=== PATIENT | female | born 1945 | race Caucasian/White ===

== ENCOUNTER → 2016-04-25 | Outpatient (REF) | payer OTHER ==
[~2016-04-25] MED LIST: /ADVA50050 INH; ACET65TA OR; ALBUTEROL INHL INH; ALEVE PO; ASPI81TA83 OR; ATEN50TA2 OR; CALCIUM VITAMIN D PO; COZA50TA18 OR; LIPI80TA OR; NITR0.4S SL; NITROSTAT; PRIL40CA OR; VIT D 2000 PO; [UNRECOGNIZED DRUG - OTHER] OU
[2016-04-25 12:04] LABS: ALBUMIN 3.4 GM/DL (3.2-5.2); ALBUMIN/GLOBULIN RATIO 1.26 (1.00-1.93); ALKALINE PHOSPHATASE 103 U/L (45-117); ALT/SGPT 24 U/L (12-78); ANION GAP 11 MEQ/L (8-16); AST/SGOT 10 U/L (15-37); BILIRUBIN,TOTAL 0.7 MG/DL (0.2-1.0); BLOOD UREA NITROGEN 9 MG/DL (7-18); CALCIUM LEVEL 8.6 MG/DL (8.8-10.2); CARBON DIOXIDE LEVEL 24 MEQ/L (21-32); CHLORIDE LEVEL 108 MEQ/L (98-107); CREATININE FOR GFR 0.88 MG/DL (0.55-1.02); FERRITIN 34 NG/ML (8-252); GLOMERULAR FILTRATION RATE > 60.0 (>39); GLUCOSE, FASTING 158 MG/DL (83-110); MAGNESIUM LEVEL 2.2 MG/DL (1.8-2.4); PERCENT SATURATION 15.6 % (13.2-37.4); POTASSIUM SERUM 4.1 MEQ/L (3.5-5.1); SODIUM LEVEL 143 MEQ/L (136-145); TOTAL IRON BINDING CAPACITY 339 UG/DL (250-450); TOTAL PROTEIN 6.1 GM/DL (6.4-8.2)
[2016-04-25 12:08] LABS: BASO # 0.1 K/mm3 (0.0-0.2); BASO % 1.2 % (0.0-1.0); EOS # 0.1 K/mm3 (0.0-0.50); EOS % 1.4 % (0.0-3.0); LARGE UNSTAINED CELL # 0.1 K/mm3 (0.0-0.4); LARGE UNSTAINED CELL % 1.7 % (0.0-4.0); LYMPH # 1.4 K/mm3 (1.5-4.5); LYMPH % 17.3 % (24.0-44.0); MEAN CORPUSCULAR HEMOGLOBIN 29.4 pg (27.0-33.0); MEAN CORPUSCULAR VOLUME 86.4 fl (80.0-96.0); MONO # 0.5 K/mm3 (0.0-0.8); MONO % 6.5 % (0.0-5.0); NEUTROPHILS # 5.3 K/mm3 (1.8-7.7); PLATELET COUNT, AUTOMATED 379 k/mm3 (150-450); RED CELL DISTRIBUTION WIDTH 14.2 % (11.5-14.5); WHITE BLOOD COUNT 7.3 K/mm3 (4.0-10.0)
== END ==
LOC: M SFHCPLAZ 08:54
PROVIDERS: ATTEND Family Medicine
DX: I10 Essential (primary) hypertension (principal); E11.9 Type 2 diabetes mellitus without complications

== ENCOUNTER → 2016-05-28 | Day surgery (SDC) | payer OTHER ==
[~2016-05-28] VITALS: Ht 152.4 cm; Wt 62.6 kg
[~2016-05-28] MED LIST changes: +ACETAMINOPHEN 325 MG TAB PO PRN; +ACETYLCHOLINE OPHTH SOLN 1% 2ML As Ordered ONE; +ACETYLCHOLINE OPHTH SOLN 1% 2ML XX ONE; +ASPI1TAB PO; +ATEN25TA PO; +ATOR1TAB18 PO; +AcetaZOLAMIDE 500 MG ER CAP PO ONE; +BALANCED SALT IRRIGATION SOL 500ML GLASS BOTTLE (FOR OR EYE COMPOUND) IR ONE; +BALANCED SALT IRRIGATION SOLUTION 500ML BAG (FOR OR EYE MACHINE) As Ordered ONE; +CALC600T21 PO; +CEFUROXIME 1MG/0.1ML INTRACAMERAL INJ As Ordered ONE; +CEFUROXIME 1MG/0.1ML INTRACAMERAL INJ ICAM ONE; +CYCLOPENTOLATE 2% OPHTH SOLN As Ordered ONE; +CYCLOPENTOLATE 2% OPHTH SOLN OS ONE; +DORZ2OPD OU; +HEALON DUET (HEALON 10MG/ML 0.55ML & HEALON ENDOCOAT 30MG/ML 0.85ML) As Ordered ONE; +HEALON DUET (HEALON 10MG/ML 0.55ML & HEALON ENDOCOAT 30MG/ML 0.85ML) XX ONE; +ICAPCAP PO; +KETOROLAC 0.5% OPHTH SOLN OS ONE; +LIDOCAINE 1% SDV 5 ML VIAL As Ordered ONE; +LIDOCAINE 1% SDV 5 ML VIAL XX ONE; +LIDOCAINE 4% INJ 5 ML AMP OU ONE; +LOSA50TA20 PO; +METF500T PO; +MIDAZOLAM INJ 2 MG/2 ML VIAL (J2250) As Ordered ONE; +OFLOXACIN 0.3 % (OCUFLOX) OPTH SOL 5ML As Ordered ONE; +OFLOXACIN 0.3 % (OCUFLOX) OPTH SOL 5ML OS ONE; +OMEP40CA2 PO; +PHENYLEPHRINE 2.5% OPHTH SOL 2ML As Ordered ONE; +PHENYLEPHRINE 2.5% OPHTH SOL 2ML OS ONE; +POVIDONE-IODINE 5% OPHTH PREP SOL 30ML As Ordered ONE; +PROPARACAINE 0.5% OPHTH SOL 15ML OS PRN; +SIMB1SUS OU; +TRAV04OPD OU; +TRIMETHOBENZAMIDE 300 MG CAP PO PRN; +TROPICAMIDE 1% OPHTH SOLN 2 ML As Ordered ONE; +TROPICAMIDE 1% OPHTH SOLN 2 ML OS ONE; +VITA-112 PO; +fentaNYL 100 MCG/2 ML INJECTION (J3010) As Ordered ONE
[2016-05-28 09:00] VITALS: BP 162/87
--- NOTE | 2016-05-28 20:26 | RO ---
DATE OF PROCEDURE: 05/28/2015 PREPROCEDURE DIAGNOSIS: Age-related nuclear cataract and open-angled glaucoma left eye. POSTPROCEDURE DIAGNOSIS: Age-related nuclear cataract and open-angled glaucoma left eye. PROCEDURE: Phacoemulsification and posterior chamber intraocular lens implantation and endocyclophotocoagulation (ECP). The lens used was PCB00 19.5 diopter. SURGEON: Lori Santiago MD INGOT WEIGHER: ANESTHESIA: Topical with sedation. DESCRIPTION OF PROCEDURE: The patient was prepped and draped in the usual fashion. A lid speculum was placed between the lids. The eye was fixated. A stab incision was made to the anterior chamber, and 1% non-preserved lidocaine was instilled. Then, viscoelastic was instilled. The eye was re-fixated. A 2.6 mm keratome was used to make a clear corneal temporal limbal incision. Capsulorrhexis was begun with a 30-gauge bent needle and then carried out in a circular fashion with capsulorrhexis forceps. The lens was hydrodissected, and the phacoemulsification unit was used to make a groove in the nucleus in two meridians. The nucleus was then cracked into four quadrants. Each quadrant was removed with the phacoemulsification unit. Any remaining cortex was removed with the irrigation and aspiration (I and A) unit. A posterior chamber intraocular lens was placed in the capsular bag without difficulty. The posterior chamber was again refilled with viscoelastic and the iris was ballooned up. The ECP probe was introduced under approximately 180 degrees of celiac processes were lasered. Any remaining viscoelastic was removed with the I and A. The wound was hydrated, and Miochol and cefuroxime were instilled. The patient tolerated the procedure well and went to the recovery room in stable condition.
== END | disposition home or self-care (01) ==
LOC: M SDC 06:16
PROVIDERS: ATTEND Ophthalmology
DX: H25.12 Age-related nuclear cataract, left eye (principal); H40.10X0 Unspecified open-angle glaucoma, stage unspecified; I25.10 Atherosclerotic heart disease of native coronary artery without angina pectoris; I25.2 Old myocardial infarction; I10 Essential (primary) hypertension; E78.5 Hyperlipidemia, unspecified; Z98.61 Coronary angioplasty status; Z79.82 Long term (current) use of aspirin; Z79.899 Other long term (current) drug therapy; K21.9 Gastro-esophageal reflux disease without esophagitis; Z87.891 Personal history of nicotine dependence
CPT/HCPCS: 66711; 66984; J2250; J3010; V2632

== ENCOUNTER → 2016-06-25 | Day surgery (SDC) | payer OTHER ==
[~2016-06-25] VITALS: Ht 152.4 cm; Wt 61.2 kg
[~2016-06-25] MED LIST changes: -ACETYLCHOLINE OPHTH SOLN 1% 2ML XX ONE; -BALANCED SALT IRRIGATION SOL 500ML GLASS BOTTLE (FOR OR EYE COMPOUND) IR ONE; -CEFUROXIME 1MG/0.1ML INTRACAMERAL INJ ICAM ONE; -CYCLOPENTOLATE 2% OPHTH SOLN As Ordered ONE; +CYCLOPENTOLATE 2% OPHTH SOLN OD ONE; -CYCLOPENTOLATE 2% OPHTH SOLN OS ONE; +D5W/0.2% SODIUM CHLORIDE 250 ML IV SCH; -HEALON DUET (HEALON 10MG/ML 0.55ML & HEALON ENDOCOAT 30MG/ML 0.85ML) XX ONE; +KETOROLAC 0.5% OPHTH SOLN OD ONE; -KETOROLAC 0.5% OPHTH SOLN OS ONE; -LIDOCAINE 1% SDV 5 ML VIAL XX ONE; -OFLOXACIN 0.3 % (OCUFLOX) OPTH SOL 5ML As Ordered ONE; +OFLOXACIN 0.3 % (OCUFLOX) OPTH SOL 5ML OD ONE; -OFLOXACIN 0.3 % (OCUFLOX) OPTH SOL 5ML OS ONE; -PHENYLEPHRINE 2.5% OPHTH SOL 2ML As Ordered ONE; +PHENYLEPHRINE 2.5% OPHTH SOL 2ML OD ONE; -PHENYLEPHRINE 2.5% OPHTH SOL 2ML OS ONE; +PROPARACAINE 0.5% OPHTH SOL 15ML OD PRN; -PROPARACAINE 0.5% OPHTH SOL 15ML OS PRN; -TROPICAMIDE 1% OPHTH SOLN 2 ML As Ordered ONE; +TROPICAMIDE 1% OPHTH SOLN 2 ML OD ONE; -TROPICAMIDE 1% OPHTH SOLN 2 ML OS ONE
[2016-06-25 10:00] VITALS: BP 173/73
--- NOTE | 2016-06-26 06:26 | RO ---
DATE OF PROCEDURE: 06/25/2016 PREOPERATIVE DIAGNOSES: Age-related nuclear cataract right eye and glaucoma open-angle right eye. POSTOPERATIVE DIAGNOSES: Age-related nuclear cataract right eye and glaucoma open-angle right eye. PROCEDURE: Phacoemulsification and posterior chamber intraocular lens implantation and endoscopic endophotocoagulation (ECP) right eye. Lens used is a AU00T0, 18.5 diopter. SURGEON: Lori Santiago MD MECHANICAL DETAILER: ANESTHESIA: Topical with sedation. DESCRIPTION OF PROCEDURE: Patient was prepped and draped in the usual fashion. A lid speculum was placed between the lids. The eye was fixated. A stab incision was made to the anterior chamber, and 1% non-preserved lidocaine was instilled. Then, viscoelastic was instilled. The eye was re-fixated. A 2.4 mm keratome was used to make a clear corneal temporal limbal incision. Capsulorrhexis was begun with a 30-gauge bent needle and then carried out in a circular fashion with capsulorrhexis forceps. The lens was then hydrodissected and the phacoemulsification unit was used to make a groove in the nucleus in two meridians. The nucleus was then cracked into four quadrants. Each quadrant was removed with the phacoemulsification unit. Any remaining cortex was removed with the irrigation and aspiration (I and A) unit. The capsular bag was refilled with viscoelastic. A posterior chamber intraocular lens was placed in the capsular bag without difficulty. The anterior chamber was then refilled with viscoelastic ballooning up the iris and the ECP probe was introduced into the eye. The ciliary processes were lasered for approximately 200 degrees. Any remaining viscoelastic was removed with the I and A unit, and the wound was hydrated. Miochol and cefuroxime were instilled. Patient tolerated the procedure well and went to the recovery room in stable condition.
== END | disposition home or self-care (01) ==
LOC: M SDC 08:08
PROVIDERS: ATTEND Ophthalmology
DX: H25.11 Age-related nuclear cataract, right eye (principal); H40.10X0 Unspecified open-angle glaucoma, stage unspecified; I10 Essential (primary) hypertension; I25.10 Atherosclerotic heart disease of native coronary artery without angina pectoris; I25.2 Old myocardial infarction; E11.9 Type 2 diabetes mellitus without complications; Z98.61 Coronary angioplasty status; E78.5 Hyperlipidemia, unspecified; K21.9 Gastro-esophageal reflux disease without esophagitis; Z79.899 Other long term (current) drug therapy; Z79.82 Long term (current) use of aspirin
CPT/HCPCS: 66711; 66984; J2250; J3010; V2632

== ENCOUNTER → 2016-06-30 | Outpatient (REF) | payer OTHER ==
[~2016-06-30] MED LIST changes: -ACETAMINOPHEN 325 MG TAB PO PRN; -ACETYLCHOLINE OPHTH SOLN 1% 2ML As Ordered ONE; -AcetaZOLAMIDE 500 MG ER CAP PO ONE; -BALANCED SALT IRRIGATION SOLUTION 500ML BAG (FOR OR EYE MACHINE) As Ordered ONE; -CEFUROXIME 1MG/0.1ML INTRACAMERAL INJ As Ordered ONE; -CYCLOPENTOLATE 2% OPHTH SOLN OD ONE; -D5W/0.2% SODIUM CHLORIDE 250 ML IV SCH; -HEALON DUET (HEALON 10MG/ML 0.55ML & HEALON ENDOCOAT 30MG/ML 0.85ML) As Ordered ONE; -KETOROLAC 0.5% OPHTH SOLN OD ONE; -LIDOCAINE 1% SDV 5 ML VIAL As Ordered ONE; -LIDOCAINE 4% INJ 5 ML AMP OU ONE; -MIDAZOLAM INJ 2 MG/2 ML VIAL (J2250) As Ordered ONE; -OFLOXACIN 0.3 % (OCUFLOX) OPTH SOL 5ML OD ONE; -PHENYLEPHRINE 2.5% OPHTH SOL 2ML OD ONE; -POVIDONE-IODINE 5% OPHTH PREP SOL 30ML As Ordered ONE; -PROPARACAINE 0.5% OPHTH SOL 15ML OD PRN; -TRIMETHOBENZAMIDE 300 MG CAP PO PRN; -TROPICAMIDE 1% OPHTH SOLN 2 ML OD ONE; -fentaNYL 100 MCG/2 ML INJECTION (J3010) As Ordered ONE
[2016-06-30 12:04] LABS: BASO % 0.6 % (0.0-1.0); EOS # 0.1 K/mm3 (0.0-0.50); EOS % 1.2 % (0.0-3.0); LARGE UNSTAINED CELL # 0.1 K/mm3 (0.0-0.4); LARGE UNSTAINED CELL % 1.4 % (0.0-4.0); LYMPH # 1.2 K/mm3 (1.5-4.5); LYMPH % 18.3 % (24.0-44.0); MEAN CORPUSCULAR HEMOGLOBIN 29.5 pg (27.0-33.0); MEAN CORPUSCULAR HGB CONC 33.3 g/dl (32.0-36.5); MEAN CORPUSCULAR VOLUME 88.5 fl (80.0-96.0); MONO # 0.3 K/mm3 (0.0-0.8); MONO % 5.5 % (0.0-5.0); NEUTROPHILS # 4.5 K/mm3 (1.8-7.7); PLATELET COUNT, AUTOMATED 325 k/mm3 (150-450); WHITE BLOOD COUNT 6.2 K/mm3 (4.0-10.0)
[2016-06-30 12:25] LABS: ALBUMIN 3.8 GM/DL (3.2-5.2); ALBUMIN/GLOBULIN RATIO 1.27 (1.00-1.93); ALKALINE PHOSPHATASE 95 U/L (45-117); ALT/SGPT 40 U/L (12-78); ANION GAP 8 MEQ/L (8-16); AST/SGOT 18 U/L (15-37); BILIRUBIN,TOTAL 0.6 MG/DL (0.2-1.0); BLOOD UREA NITROGEN 9 MG/DL (7-18); CALCIUM LEVEL 8.8 MG/DL (8.8-10.2); CARBON DIOXIDE LEVEL 25 MEQ/L (21-32); CHLORIDE LEVEL 110 MEQ/L (98-107); CREATININE FOR GFR 0.77 MG/DL (0.55-1.02); FERRITIN 28 NG/ML (8-252); GLOMERULAR FILTRATION RATE > 60.0 (>39); GLUCOSE, FASTING 138 MG/DL (83-110); PERCENT SATURATION 27.5 % (13.2-37.4); POTASSIUM SERUM 4.7 MEQ/L (3.5-5.1); SODIUM LEVEL 143 MEQ/L (136-145); TOTAL IRON BINDING CAPACITY 393 UG/DL (250-450); TOTAL PROTEIN 6.8 GM/DL (6.4-8.2)
== END ==
LOC: M SFHCPLAZ 09:04
PROVIDERS: ATTEND Family Medicine
DX: I10 Essential (primary) hypertension (principal); E11.9 Type 2 diabetes mellitus without complications

== ENCOUNTER → 2016-08-29 | Outpatient (CLI) | payer OTHER ==
--- NOTE | 2016-08-29 10:42 | REPMRS ---
Patient History The patient states she has not had a clinical breast exam in over a year. Family history of breast cancer in paternal grandmother at age 50 or over and breast cancer in daughter at age 49. Digital Woman Screen Mammo: August 29, 2016 - Exam #: [id number] Bilateral CC and MLO view(s) were taken. Technologist: Kayla Huggins, Technologist Prior study comparison: August 29, 2015, digital woman screen mammo performed at [facility]. September 06, 2014, digital woman screen mammo performed at [facility] to [facility]. August 11, 2013, digital woman screen mammo performed at [facility] to [facility]. FINDINGS: There are scattered fibroglandular densities. There has been no change in the appearance of the mammogram from the prior studies. There is a mild amount of scattered fibroglandular density which is fairly symmetric. There is no interval development of dominant mass, architectural distortion, or clustered microcalcification suggestive of malignancy. ASSESSMENT: BI-RADS/ACR category 1 mammogram. Negative. Recommendation Routine screening mammogram in 1 year (for women over age 40). This mammogram was interpreted with the aid of an FDA-approved computer-aided dectection system. Electronically Signed By: Juventino Rush MD 08/29/16 0758
== END ==
LOC: M WHC 09:51
PROVIDERS: ATTEND Family Medicine
DX: Z12.31 Encounter for screening mammogram for malignant neoplasm of breast (principal)

== ENCOUNTER → 2017-01-27 | Outpatient (REF) | payer OTHER ==
[~2017-01-27] MED LIST changes: -ATOR1TAB18 PO; +ATOR80TA59 PO; -CALC600T21 PO; +CALC600T60 PO; -METF500T PO; +METF500T13 PO
[2017-01-27 13:11] LABS: CHOLESTEROL LEVEL 141 MG/DL (<200); FREE T4 1.31 NG/DL (0.76-1.46); TRIGLYCERIDES LEVEL 120 MG/DL (<150)
== END ==
LOC: M SFHCPLAZ 08:50
PROVIDERS: ATTEND Family Medicine
DX: E78.5 Hyperlipidemia, unspecified (principal); E11.9 Type 2 diabetes mellitus without complications

== ENCOUNTER → 2017-06-08 | Outpatient (REF) | payer OTHER ==
[2017-06-08 11:59] LABS: BASO # 0.1 10^3/uL (0.0-0.2); BASO % 0.8 % (0.0-1.0); EOS # 0.1 10^3/uL (0.0-0.50); EOS % 0.6 % (0.0-3.0); HEMATOCRIT 36.6 % (36.0-47.0); HEMOGLOBIN 12.3 g/dl (12.0-16.0); IMMATURE GRANULOCYTE % 0.5 % (0-3.0); LYMPH # 1.4 10^3/uL (1.5-4.5); LYMPH % 18.1 % (24.0-44.0); MEAN CORPUSCULAR HEMOGLOBIN 28.5 pg (27.0-33.0); MEAN CORPUSCULAR HGB CONC 33.6 g/dl (32.0-36.5); MEAN CORPUSCULAR VOLUME 84.7 fl (80.0-96.0); MONO # 0.8 10^3/uL (0.0-0.8); NEUTROPHILS # 5.4 10^3/uL (1.8-7.7); PLATELET COUNT, AUTOMATED 372 10^3/uL (150-450); RED BLOOD COUNT 4.32 10^6/uL (4.00-5.40); RED CELL DISTRIBUTION WIDTH 13.3 % (11.5-14.5); WHITE BLOOD COUNT 7.8 10^3/uL (4.0-10.0)
[2017-06-08 12:10] LABS: ESTIMATED AVERAGE GLUCOSE 143 MG/DL (60-110); HEMOGLOBIN A1c 6.6 %
[2017-06-08 12:14] LABS: PTH INTACT 42.1 PG/ML (18.5-88.0); TOTAL 25(OH) VITAMIN D 38.7 NG/ML (30.0-100.0)
[2017-06-08 12:23] LABS: ALBUMIN 3.4 GM/DL (3.2-5.2); ALBUMIN/GLOBULIN RATIO 1.17 (1.00-1.93); ALKALINE PHOSPHATASE 94 U/L (45-117); ALT/SGPT 23 U/L (12-78); ANION GAP 12 MEQ/L (8-16); AST/SGOT 19 U/L (7-37); BILIRUBIN,TOTAL 0.8 MG/DL (0.2-1.0); BLOOD UREA NITROGEN 11 MG/DL (7-18); CALCIUM LEVEL 8.6 MG/DL (8.8-10.2); CARBON DIOXIDE LEVEL 22 MEQ/L (21-32); CHLORIDE LEVEL 98 MEQ/L (98-107); CREATININE FOR GFR 0.79 MG/DL (0.55-1.30); GLOMERULAR FILTRATION RATE > 60.0 (>39); GLUCOSE, FASTING 115 MG/DL (70-100); MAGNESIUM LEVEL 1.9 MG/DL (1.8-2.4); POTASSIUM SERUM 4.6 MEQ/L (3.5-5.1); SODIUM LEVEL 132 MEQ/L (136-145); TOTAL PROTEIN 6.3 GM/DL (6.4-8.2)
== END ==
LOC: M SFHCPLAZ 09:24
DX: I10 Essential (primary) hypertension (principal); E11.9 Type 2 diabetes mellitus without complications; E55.9 Vitamin D deficiency, unspecified
CPT/HCPCS: 83735

== ENCOUNTER → 2017-06-12 | Outpatient (REF) | payer OTHER ==
[2017-06-12 13:30] LABS: INR 0.92; PARTIAL THROMBOPLASTIN TIME 24.1 SECONDS (26.8-37.9); PROTHROMBIN TIME 12.4 SECONDS (12.4-14.5)
[2017-06-12 13:33] LABS: D-DIMER QUANT 542.9 ng/ml (<500)
[2017-06-12 13:59] LABS: ALBUMIN 3.9 GM/DL (3.2-5.2); ANION GAP 10 MEQ/L (8-16); BLOOD UREA NITROGEN 6 MG/DL (7-18); C REACTIVE PROTEIN QUANTITATIV < 0.30 MG/DL (0.00-0.30); CALCIUM LEVEL 8.6 MG/DL (8.8-10.2); CARBON DIOXIDE LEVEL 24 MEQ/L (21-32); CHLORIDE LEVEL 102 MEQ/L (98-107); CREATININE FOR GFR 0.73 MG/DL (0.55-1.30); GLOMERULAR FILTRATION RATE > 60.0 (>39); GLUCOSE, FASTING 152 MG/DL (70-100); MAGNESIUM LEVEL 1.9 MG/DL (1.8-2.4); PHOSPHORUS LEVEL 3.3 MG/DL (2.5-4.9); POTASSIUM SERUM 4.5 MEQ/L (3.5-5.1); SODIUM LEVEL 136 MEQ/L (136-145); TROPONIN I < 0.02 NG/ML (< 0.10)
[2017-06-12 14:04] LABS: FREE T4 1.43 NG/DL (0.76-1.46); NT-PRO BNP 3066 PG/ML (<125)
== END ==
LOC: M SFHCPLAZ 11:39
DX: I25.10 Atherosclerotic heart disease of native coronary artery without angina pectoris (principal); I48.91 Unspecified atrial fibrillation
CPT/HCPCS: 83735

== ENCOUNTER → 2017-06-16 | Outpatient (REF) | payer OTHER ==
[2017-06-16 13:54] LABS: ALBUMIN 3.7 GM/DL (3.2-5.2); ANION GAP 10 MEQ/L (8-16); BLOOD UREA NITROGEN 8 MG/DL (7-18); CALCIUM LEVEL 8.2 MG/DL (8.8-10.2); CARBON DIOXIDE LEVEL 25 MEQ/L (21-32); CHLORIDE LEVEL 100 MEQ/L (98-107); CREATININE FOR GFR 0.84 MG/DL (0.55-1.30); GLOMERULAR FILTRATION RATE > 60.0 (>39); GLUCOSE, FASTING 170 MG/DL (70-100); MAGNESIUM LEVEL 1.9 MG/DL (1.8-2.4); NT-PRO BNP 576 PG/ML (<125); PHOSPHORUS LEVEL 3.8 MG/DL (2.5-4.9); POTASSIUM SERUM 4.3 MEQ/L (3.5-5.1); SODIUM LEVEL 135 MEQ/L (136-145)
== END ==
LOC: M SFHCPLAZ 11:26
DX: I48.91 Unspecified atrial fibrillation (principal); I50.32 Chronic diastolic (congestive) heart failure; R53.83 Other fatigue
CPT/HCPCS: 83735

== ENCOUNTER → 2017-06-16 | Outpatient (CLI) | payer OTHER | LOC: M SLEEP HO 12:21 | DX: G47.33 Obstructive sleep apnea (adult) (pediatric) (principal); I50.32 Chronic diastolic (congestive) heart failure | CPT/HCPCS: G0399 ==

== ENCOUNTER → 2017-10-16 | Outpatient (REF) | payer OTHER ==
[2017-10-16 11:41] LABS: BASO # 0.1 10^3/uL (0.0-0.2); BASO % 0.7 % (0.0-1.0); EOS # 0.1 10^3/uL (0.0-0.50); EOS % 0.9 % (0.0-3.0); HEMATOCRIT 37.5 % (36.0-47.0); HEMOGLOBIN 12.2 g/dl (12.0-15.5); IMMATURE GRANULOCYTE % 0.2 % (0-3.0); LYMPH # 1.1 10^3/uL (1.5-4.5); LYMPH % 13.6 % (24.0-44.0); MEAN CORPUSCULAR HGB CONC 32.5 g/dl (32.0-36.5); MONO # 0.7 10^3/uL (0.0-0.8); MONO % 8.1 % (0.0-5.0); NEUTROPHILS # 6.2 10^3/uL (1.8-7.7); NEUTROPHILS % 76.5 % (36.0-66.0); PLATELET COUNT, AUTOMATED 423 10^3/uL (150-450); RED BLOOD COUNT 4.52 10^6/uL (4.00-5.40); RED CELL DISTRIBUTION WIDTH 14.4 % (11.5-14.5); RETIC HEMOGLOBIN EQUIVALENT 32.6 pg (24-36); RETICULOCYTE # 100.8 10^9/L (17-77); RETICULOCYTE % 2.2 % (0.5-1.5); WHITE BLOOD COUNT 8.1 10^3/uL (4.0-10.0)
[2017-10-16 12:13] LABS: ALBUMIN 3.6 GM/DL (3.2-5.2); ALBUMIN/GLOBULIN RATIO 1.13 (1.00-1.93); ALKALINE PHOSPHATASE 97 U/L (45-117); ALT/SGPT 31 U/L (12-78); ANION GAP 8 MEQ/L (8-16); AST/SGOT 18 U/L (7-37); BILIRUBIN,TOTAL 0.5 MG/DL (0.2-1.0); BLOOD UREA NITROGEN 9 MG/DL (7-18); C REACTIVE PROTEIN QUANTITATIV < 0.30 MG/DL (0.00-0.30); CALCIUM LEVEL 8.6 MG/DL (8.8-10.2); CARBON DIOXIDE LEVEL 27 MEQ/L (21-32); CHLORIDE LEVEL 102 MEQ/L (98-107); CHOLESTEROL LEVEL 159 MG/DL (<200); CHOLESTEROL RISK RATIO 2.064 (<5); CPK CREATINE PHOSPHOKINASE 37 U/L (26-192); CREATININE FOR GFR 0.79 MG/DL (0.55-1.30); GLOMERULAR FILTRATION RATE > 60.0 (>39); GLUCOSE, FASTING 140 MG/DL (70-100); HDL CHOLESTEROL 77 MG/DL (>40); LDL CHOLESTEROL 62.2 MG/DL (<100); NON-HDL-C 82 MG/DL; POTASSIUM SERUM 4.5 MEQ/L (3.5-5.1); SODIUM LEVEL 137 MEQ/L (136-145); TOTAL PROTEIN 6.8 GM/DL (6.4-8.2); TRIGLYCERIDES LEVEL 99 MG/DL (<150)
== END ==
LOC: M SFHCPLAZ 08:44
DX: I48.91 Unspecified atrial fibrillation (principal)
CPT/HCPCS: 82550

== ENCOUNTER → 2017-11-26 | Outpatient (CLI) | payer OTHER | LOC: M SLEEP 19:21 | DX: G47.33 Obstructive sleep apnea (adult) (pediatric) (principal) | CPT/HCPCS: 95811 ==

== ENCOUNTER → 2017-12-29 | Outpatient (CLI) | payer OTHER | LOC: M WHC 09:28 | DX: Z12.31 Encounter for screening mammogram for malignant neoplasm of breast (principal); Z80.3 Family history of malignant neoplasm of breast; M81.0 Age-related osteoporosis without current pathological fracture | CPT/HCPCS: 77067 ==

== ENCOUNTER → 2018-02-24 | Outpatient (REF) | payer OTHER ==
[2018-02-24 12:53] LABS: BASO # 0.1 10^3/uL (0.0-0.2); BASO % 0.9 % (0.0-1.0); EOS # 0.1 10^3/uL (0.0-0.50); EOS % 0.6 % (0.0-3.0); HEMOGLOBIN 11.2 g/dl (12.0-15.5); IMMATURE GRANULOCYTE % 0.4 % (0-3.0); LYMPH # 1.1 10^3/uL (1.5-4.5); LYMPH % 13.3 % (24.0-44.0); MEAN CORPUSCULAR HEMOGLOBIN 25.5 pg (27.0-33.0); MEAN CORPUSCULAR HGB CONC 31.1 g/dl (32.0-36.5); MEAN CORPUSCULAR VOLUME 81.8 fl (80.0-96.0); MONO # 0.6 10^3/uL (0.0-0.8); NEUTROPHILS # 6.2 10^3/uL (1.8-7.7); NEUTROPHILS % 77.8 % (36.0-66.0); PLATELET COUNT, AUTOMATED 438 10^3/uL (150-450); RED CELL DISTRIBUTION WIDTH 14.7 % (11.5-14.5); RETIC HEMOGLOBIN EQUIVALENT 28.4 pg (24-36); RETICULOCYTE # 93.3 10^9/L (17-77); RETICULOCYTE % 2.1 % (0.5-1.5)
[2018-02-24 13:07] LABS: ALBUMIN 3.7 GM/DL (3.2-5.2); ALBUMIN/GLOBULIN RATIO 1.32 (1.00-1.93); ALKALINE PHOSPHATASE 95 U/L (45-117); ALT/SGPT 33 U/L (12-78); ANION GAP 8 MEQ/L (8-16); AST/SGOT 21 U/L (7-37); BILIRUBIN,TOTAL 0.6 MG/DL (0.2-1.0); BLOOD UREA NITROGEN 10 MG/DL (7-18); CALCIUM LEVEL 8.8 MG/DL (8.8-10.2); CARBON DIOXIDE LEVEL 26 MEQ/L (21-32); CHLORIDE LEVEL 103 MEQ/L (98-107); CREATININE FOR GFR 0.78 MG/DL (0.55-1.30); FREE T4 1.32 NG/DL (0.76-1.46); GLOMERULAR FILTRATION RATE > 60.0 (>39); GLUCOSE, FASTING 119 MG/DL (70-100); MAGNESIUM LEVEL 2.1 MG/DL (1.8-2.4); POTASSIUM SERUM 4.3 MEQ/L (3.5-5.1); SODIUM LEVEL 137 MEQ/L (136-145); TOTAL PROTEIN 6.5 GM/DL (6.4-8.2); VITAMIN B12 LEVEL 623 PG/ML (247-911)
[2018-02-24 13:36] LABS: ESTIMATED AVERAGE GLUCOSE 154 MG/DL (60-110)
== END ==
LOC: M SFHCPLAZ 08:26
DX: I48.91 Unspecified atrial fibrillation (principal); I50.32 Chronic diastolic (congestive) heart failure; E78.5 Hyperlipidemia, unspecified; E11.9 Type 2 diabetes mellitus without complications
CPT/HCPCS: 83735

== ENCOUNTER 2018-05-27 02:04 | Inpatient (IN) | payer MEDICARE, OTHER ==
[~2018-05-27] VITALS: Ht 147.3 cm; Wt 63.3 kg
[~2018-05-27 02:04] MED LIST changes: -LOSA50TA20 PO; +LOSA50TA88 PO
[2018-05-27] MEDS ORDERED: FURO20TA2 (02:16)
[2018-05-27] MEDS ORDERED: NS 500 ML IV ONE (02:45)
[2018-05-27] MEDS ORDERED: MORPHINE 2 MG/ML 1ML SYRINGE (J2270) IV ONE (02:45)
[2018-05-27] MEDS ORDERED: ONDANSETRON 4MG/2ML VIAL (J2405) IV ONE (02:45)
[2018-05-27 02:48] LABS: BASO # 0.1 10^3/uL (0.0-0.2); BASO % 0.6 % (0.0-1.0); EOS # 0.1 10^3/uL (0.0-0.50); EOS % 0.5 % (0.0-3.0); HEMATOCRIT 29.2 % (36.0-47.0); HEMOGLOBIN 8.6 g/dl (12.0-15.5); LYMPH % 7.8 % (24.0-44.0); MEAN CORPUSCULAR HEMOGLOBIN 23.5 pg (27.0-33.0); MEAN CORPUSCULAR HGB CONC 29.5 g/dl (32.0-36.5); MEAN CORPUSCULAR VOLUME 79.8 fl (80.0-96.0); MONO # 0.7 10^3/uL (0.0-0.8); MONO % 5.8 % (0.0-5.0); NEUTROPHILS # 10.8 10^3/uL (1.8-7.7); NEUTROPHILS % 84.8 % (36.0-66.0); PLATELET COUNT, AUTOMATED 505 10^3/uL (150-450); RED BLOOD COUNT 3.66 10^6/uL (4.00-5.40); WHITE BLOOD COUNT 12.8 10^3/uL (4.0-10.0)
[2018-05-27 03:00] LABS: INR 1.14; PROTHROMBIN TIME 14.8 SECONDS (12.1-14.4)
[2018-05-27 03:19] LABS: ALBUMIN 3.3 GM/DL (3.2-5.2); ALT/SGPT 24 U/L (12-78); BILIRUBIN,TOTAL 0.6 MG/DL (0.2-1.0); BLOOD UREA NITROGEN 12 MG/DL (7-18); CALCIUM LEVEL 7.9 MG/DL (8.8-10.2); CARBON DIOXIDE LEVEL 21 MEQ/L (21-32); CHLORIDE LEVEL 100 MEQ/L (98-107); CK-MB VALUE MASS < 1.0 NG/ML (<3.6); CPK CREATINE PHOSPHOKINASE 35 U/L (26-192); CREATININE FOR GFR 0.99 MG/DL (0.55-1.30); GLOMERULAR FILTRATION RATE 58.5 (>39); GLUCOSE, FASTING 290 MG/DL (70-100); LIPASE 109 U/L (73-393); MB/CK RELATIVE INDEX 2.86 (< OR =4); NT-PRO BNP 2721 PG/ML (<125); POTASSIUM SERUM 4.6 MEQ/L (3.5-5.1); SODIUM LEVEL 133 MEQ/L (136-145); TROPONIN I < 0.02 NG/ML (< 0.10)
[2018-05-27] MEDS ORDERED: ISOVUE-370 76% 100ML VIAL (Q9967) As Ordered ONE (03:23)
[2018-05-27] MEDS ORDERED: PANTOPRAZOLE 40MG INJ (PROTONIX) (C9113) IV ONE (03:45)
[2018-05-27] MEDS: PANTOPRAZOLE SODIUM 40 MG in D5W 50 ML IV SCH ×3 (04:05→14:35)
[2018-05-27] MEDS ORDERED: FUROSEMIDE 40 MG/4 ML VIAL (J1940) IV ONE (04:15)
[2018-05-27] MEDS ORDERED: TIMO0.5S29 OU (04:20)
[2018-05-27] MEDS ORDERED: OMEP20CA3 PO (04:20)
[2018-05-27] MEDS ORDERED: METF500T4 PO (04:20)
[2018-05-27] MEDS ORDERED: FURO20TA2 PO (04:20)
[2018-05-27] MEDS ORDERED: ATEN50TA2 PO (04:20)
[2018-05-27] MEDS ORDERED: ASPI81TAEC PO (04:20)
[2018-05-27] MEDS ORDERED: ELIQ5TAB PO (04:20)
--- NOTE | 2018-05-27 07:28 | REP ---
Portable chest, 02:56 a.m., single AP view, the patient upright: Comparison is 06/21/2011. There is an incomplete inspiratory effort. The lung bases are under aerated. Lung shelton otherwise clear. Cardiac size is upper normal. The elvia, mediastinum, skeletal structures are unremarkable. There is a cervical spine stabilization plate. Electronically Signed by Jose Miguel Melendrez MD 05/27/2018 07:20 A
[2018-05-27 07:57] LABS: TROPONIN I < 0.02 NG/ML (< 0.10)
[2018-05-27] MEDS ORDERED: GASTROGRAFIN SOLUTION 30ML (Q9963) As Ordered ONE (07:58)
[2018-05-27] MEDS: GASTROGRAFIN SOLUTION 30ML PO SCH ×2 (08:06→08:43)
[2018-05-27] MEDS: HumaLOG INSULIN (NovoLOG) PER UNIT SC SCH ×4 (08:07→21:00)
--- NOTE | 2018-05-27 08:49 | HPE ---
DATE OF ADMISSION: 05/27/2018 CHIEF COMPLAINT: Intermittent episodes of bright red blood per rectum and worsening dyspnea on exertion. HISTORY OF PRESENT ILLNESS: The patient is a 73-year-old female with significant past medical history of recently diagnosed atrial fibrillation in February 2018 and started on Eliquis and atenolol, hyperlipidemia, coronary artery disease (CAD) status post percutaneous coronary intervention (PCI), congestive heart failure, diabetes, hypertension, history of peptic ulcer disease, and glaucoma. She presents to the emergency room with multiple episodes of bright red blood per rectum over the past several weeks. She states it has been worse over the past few days, she was unable to quantify, with some crampy upper abdominal pain. She also endorses worsening dyspnea on exertion, orthopnea, paroxysmal nocturnal dyspnea (PND) and edema. She said she can only ambulate short steps before she is short of breath. She also endorses some intermittent chest discomfort, non-radiating, 5 out of 10 in severity. No relieving or exacerbating factors. She denies any cough. She does not endorse subjective chills. No urinary symptoms. She does not have loose stools. PAST MEDICAL HISTORY: See history of present illness (HPI). PAST SURGICAL HISTORY: She had surgery for peptic ulcer disease, appendectomy, vaginal hysterectomy, and neck surgery. ALLERGIES: No known drug allergies. HOME MEDICATIONS: - Eliquis - aspirin - metformin - Lasix - losartan - omeprazole - timolol - Lipitor - atenolol SOCIAL HISTORY: Former smoker. Denies alcohol or illicit drug use. FAMILY HISTORY: Heart disease and diabetes. REVIEW OF SYSTEMS: A 12-point review of systems was completed, all of which were negative except those listed in the history of present illness (HPI). VITAL SIGNS ON ADMISSION: Temperature 96, respirations 20, blood pressure 206/87, satting at 95% on room air. PHYSICAL EXAMINATION: General: She is well nourished, in no apparent distress. Head is normocephalic, atraumatic. Eyes: Extraocular movements are intact. Pupils equal round and reactive to light. Neck is supple. No jugular venous pulse (JVP). Lungs: Bibasilar crackles and wheezing. Possibly a cardiac wheeze. Cardiovascular: Irregularly irregular rhythm. Normal S1 and S2. No murmurs, gallops or rubs. Abdomen: Soft. Tenderness to palpation in the epigastric area, but no rebound, no guarding. Positive bowel sounds. Extremities: Trace edema. No calf tenderness. Skin: Intact. No rashes, lesion or breakdown. Rectal Exam: Deferred. LABS AND IMAGING: Completed in the ER. White count 12, hemoglobin/hematocrit (H/H) 12/09, platelet count 505. Hemoglobin before starting Eliquis in February 21.2. Coags with INR of 1.14. BUN and creatinine of 12 over 0.99. Troponin negative. Chest x-ray shows pulmonary venous congestion, possible small bilateral pleural effusions. ASSESSMENT AND PLAN: Gastrointestinal bleed on Eliquis. Surgeon, Dr. Santiago, consulted to see patient in the a.m. Type and cross. Will transfuse to keep hemoglobin greater than 8. Proton pump inhibitor (PPI) twice a day. Stool for occult blood. To be seen by surgeon in the a.m. For acute on chronic heart failure, likely secondary to the acute blood loss anemia, will get an echo. Will rule out acute coronary syndrome (ACS) with serial troponins and serial EKGs. Will place the patient on telemetry. Will give Lasix 40 twice a day. Strict ins and outs and daily weights. Get a TSH. For atrial fibrillation, will hold Eliquis. Will continue atenolol for rate control. For CAD, will hold aspirin, continue Lipitor. For hypertension, will hold Losartan. For diabetes, will hold metformin. Insulin sliding scale. The patient to be nothing by mouth (n.p.o.) for now. Will continue eye drops. Supportive deep vein thrombosis (DVT) prophylaxis with sequential compression devices. For GI prophylaxis, she is on Protonix drip. Diet: Nothing by mouth for now. MTDD
[2018-05-27] MEDS ORDERED: PANTOPRAZOLE 40MG INJ (PROTONIX) (C9113) IV SCH (09:00)
[2018-05-27] MEDS ORDERED: PILL CRUSHER/CUTTER 1 EACH XX ONE (09:10)
[2018-05-27] MEDS: ATENOLOL 50 MG TAB PO SCH ×2 (09:13→20:53)
[2018-05-27] MEDS: VITAMIN D 1,000 INTERNATIONAL UNITS TABLET PO SCH ×2 (09:13→20:54)
[2018-05-27] MEDS: IPRATROPIUM 0.5MG/ALBUTEROL 2.5MG INH SOL UD 3ML (DUONEB)(J7620) NEB SCH ×3 (09:48→19:35)
--- NOTE | 2018-05-27 10:02 | REP ---
CT of the abdomen and pelvis with IV and bowel contrast for abdominal pain and rectal bleeding: There are no comparisons. The patient indicates that she has an appendectomy and hysterectomy. There are large bilateral pleural effusions in the visualized lung shelton. The hepatic parenchyma, gallbladder, pancreas and spleen are unremarkable. There is a 13 mm calculus at the gallbladder hilus, likely a granuloma. The adrenals are unremarkable. There is a 15 mm simple renal cortical cyst posteriorly in the left kidney mid pole. The right and left kidneys otherwise are unremarkable. The abdominal aorta is unremarkable. There is no retroperitoneal adenopathy or mass. There are diverticula in the descending colon and sigmoid colon without CT evidence of acute diverticulitis. There is wall thickening of the proximal transverse colon and distal transverse colon compatible with colitis in the appropriate clinical setting. Pelvis: The terminal ileum is unremarkable. The appendix is surgically absent. The vaginal cuff and adnexa are unremarkable. Bladder is unremarkable. There is no adenopathy or ascites. Impression: Large bilateral pleural effusions. Diverticulosis without diverticulitis. Wall thickening of the proximal transverse colon and distal transverse colon, compatible with colitis in the appropriate clinical setting. No ascites or adenopathy. Left renal cortical simple cyst. Granulomas calcification at the splenic hilus. Electronically Signed by Jose Miguel Melendrez MD 05/27/2018 09:55 A
[2018-05-27 10:34] LABS: CPK CREATINE PHOSPHOKINASE 37 U/L (26-192); MB/CK RELATIVE INDEX 3.24 (< OR =4)
[2018-05-27] MEDS: TIMOLOL MALEATE 0.5% OPHTH SOLN 5 ML OU SCH ×2 (12:37→18:05)
[2018-05-27 13:40] VITALS: BP 122/84
[2018-05-27 16:00] VITALS: BP 129/67
[2018-05-27] MEDS: SLF 3 ML SYR IV PRN (17:40)
[2018-05-27] MEDS ORDERED: ACETAMINOPHEN TAB 650MG DOSE (2X325MG) PO PRN (19:30)
[2018-05-27 20:00] VITALS: BP 128/76
--- NOTE | 2018-05-27 20:48 | ECHO ---
DATE OF PROCEDURE: 05/27/2018 AGE: 73 GENDER: Female HEIGHT: 58 inches. WEIGHT: 134 pounds. BODY SURFACE AREA: 1.55 sq m. INPATIENT: PCU Room 3228. REFERRING PHYSICIAN: Dr. Stone Thursday. INDICATION: Congestive heart failure. MEASUREMENTS: 2D MEASUREMENTS: RV - 3.6 cm LV- 3.5 cm Septum - 1.2 cm Posterior wall - 1.2 cm Aortic root - 3.3 cm LA - 3.6 cm LVEF - 65% DOPPLER MEASUREMENTS: AV - 1.04 m/s LVOT - 0.78 m/s LVOT diameter: 2.0 cm MV-E: 126 Early mitral deceleration time 197 ms E-prime - 7.7 E/E prime ratio 16.5 PV - 0.6 m/s Pulmonary artery acceleration time 95 ms RVSP - 51 mmHg IVC - 1.9 cm COMMENTS: Underlying atrial fibrillation with controlled ventricular response. No intraventricular conduction disturbance. M-mode and 2 dimensional echocardiography was performed with pulsed, continuous wave, color flow and tissue Doppler studies. Borderline left ventricular hypertrophy with normal to hyperkinetic wall motion. At least mildly dilated left atrium observed best from the apical four chamber projection with current estimated mean left atrial pressure was at least 20 mmHg. Normal right heart chamber sizes and motion with Doppler evidence of at least moderate pulmonary hypertension. IVC size upper limits of normal with slightly reduced respiratory collapse suggestive of a slightly elevated central venous pressure. Mild aortic valvular sclerosis without functional abnormality. Mild mitral annular calcification with moderate insufficiency. Normal appearing tricuspid valve with at least moderate insufficiency. Normal aortic root size. No apparent intracardiac mass or pericardial effusion. Sizable left pleural effusion. MTDD
[2018-05-27] MEDS: SUCRALFATE SUSP 1GM/10ML UD PO SCH (20:50)
[2018-05-27] MEDS: ATORVASTATIN 20 MG TAB PO SCH (20:52)
[2018-05-27] MEDS: FUROSEMIDE 40 MG/4 ML VIAL (J1940) IV SCH (20:55)
[2018-05-27] MEDS: PANTOPRAZOLE 40MG INJ (PROTONIX) (C9113) IV SCH (20:55)
[2018-05-27] MEDS: SLF 3 ML SYR IV SCH (21:06)
[2018-05-27] MEDS ORDERED: DEXTROSE 50% 50 ML SYRINGE IV PRN (21:45)
[2018-05-27] MEDS ORDERED: GLUCAGON FOR INJ 1 MG VIAL (J1610) SC PRN (21:45)
[2018-05-27] MEDS ORDERED: GLUCOSE 4 GM CHEW TABLET PO PRN (21:45)
--- NOTE | 2018-05-27 21:56 | IPNPDOC ---
Subjective Date Seen The patient was seen on 05/27/18. Subjective Chief Complaint/HPI Patient still has some abdominal discomfort across top of abdomen. No other abdominal pain. Pain does not get worse with deep breath. Constitutional: Denies: Chills, Fever Cardiovascular: Reports: Chest Pain Objective Physical Examination General Exam: Positive: Alert Eye Exam: Positive: PERRLA Chest Exam: Positive: Clear to auscultation; Negative: Rhonchi, Wheezing Heart Exam: Positive: Rate Normal; Negative: Murmurs Abdomen Exam: Positive: Normal bowel sounds, Tenderness (right and left upper quadrants) Extremity Exam: Negative: Clubbing Assessment /Plan Problems (1) GI bleed Problem Text: Continue patient on IV protonix and carafate. Patient is NPO. Surgery consulted. On clears. Morphine IV and tylenol for pain. (2) Acute CHF Status: Acute Problem Text: IV lasix. Continue diuresis. (3) Atrial fibrillation Problem Text: On atenolol. Anticoagulants held. (4) CAD (coronary artery disease) Problem Text: Continue Statin. (5) HTN (hypertension) Problem Text: Monitor BP. (6) Diabetes mellitus Problem Text: Fingersticks and hypoglycemic protocol. Sliding scale. (7) History of peptic ulcer Problem Text: Patient has history of. Continue PPI. Plan/VTE VTE Prophylaxis Ordered?: Yes VS, I&O, 24H, Fishbone Vital Signs/I&O Vital Signs Date Time Temp Pulse Resp B/P (MAP) Pulse Ox O2 Delivery O2 Flow Rate FiO2 05/27/18 20:53 79 128/76 05/27/18 20:00 99.7 18 97 2.0 05/27/18 11:55 Nasal Cannula Laboratory Data 24H LABS Laboratory Tests 2 05/27/18 02:42: Immature Granulocyte % (Auto) 0.5, White Blood Count 12.8H, Red Blood Count 3.66L, Hemoglobin 8.6L, Hematocrit 29.2L, Mean Corpuscular Volume 79.8L, Mean Corpuscular Hemoglobin 23.5L, Mean Corpuscular Hemoglobin Concent 29.5L, Red Cell Distribution Width 17.0H, Platelet Count 505H, Neutrophils (%) (Auto) 84.8H, Lymphocytes (%) (Auto) 7.8L, Monocytes (%) (Auto) 5.8H, Eosinophils (%) (Auto) 0.5, Basophils (%) (Auto) 0.6, Neutrophils # (Auto) 10.8H, Lymphocytes # (Auto) 1.0L, Monocytes # (Auto) 0.7, Eosinophils # (Auto) 0.1, Basophils # (Auto) 0.1, Nucleated Red Blood Cells % (auto) 0.0, Prothrombin Time 14.8H, Pr othromb Time International Ratio 1.14, Anion Gap 12, Glomerular Filtration Rate 58.5, Blood Urea Nitrogen 12, Creatinine 0.99, Sodium Level 133L, Potassium Level 4.6, Chloride Level 100, Carbon Dioxide Level 21, Calcium Level 7.9L, Aspartate Amino Transf (AST/SGOT) 18, Alanine Aminotransferase (ALT/SGPT) 24, Total Creatine Kinase 35, Alkaline Phosphatase 84, Total Bilirubin 0.6, Total Protein 6.0L, Albumin 3.3, Creatine Kinase MB < 1.0, Creatine Kinase MB Relative Index 2.86, Troponin I < 0.02, VN-Nau-F-Type Natriuretic Peptide 2721H, Albumin/Globulin Ratio 1.22, Lipase 109 05/27/18 07:14: Total Creatine Kinase 37, Creatine Kinase MB 1.0, Creatine Kinase MB Relative Index 3.24, Troponin I < 0.02, Thyroid Stimulating Hormone (TSH) 2.090 05/27/18 07:59: Bedside Glucose (Misc Panel) 194H 05/27/18 12:34: Bedside Glucose (Misc Panel) 106 05/27/18 15:00: Troponin I < 0.02 05/27/18 17:17: Bedside Glucose (Misc Panel) 116H 05/27/18 20:45: Bedside Glucose (Misc Panel) 168H CBC/BMP Laboratory Tests 05/27/18 02:42 Red Blood Count 3.66 L, Mean Corpuscular Volume 79.8 L, Mean Corpuscular Hemoglobin 23.5 L, Mean Corpuscular Hemoglobin Concent 29.5 L, Red Cell Distribution Width 17.0 H, Neutrophils (%) (Auto) 84.8 H, Lymphocytes (%) (Auto) 7.8 L, Monocytes (%) (Auto) 5.8 H, Eosinophils (%) (Auto) 0.5, Basophils (%) (Auto) 0.6, Neutrophils # (Auto) 10.8 H, Lymphocytes # (Auto) 1.0 L, Monocytes # (Auto) 0.7, Eosinophils # (Auto) 0.1, Basophils # (Auto) 0.1, Calcium Level 7.9 L, Aspartate Amino Transf (AST/SGOT) 18, Alanine Aminotransferase (ALT/SGPT) 24, Total Creatine Kinase 35, Alkaline Phosphatase 84, Total Bilirubin 0.6, Total Protein 6.0 L, Albumin 3.3 05/27/18 11:37 05/27/18 19:45 GME ATTESTATION ATTENDING NOTE Family Medicine Attending Note: I was present on site to supervise Jeanette Sanchez D.O. (OGME-3). We discussed the history and exam. I confirmed the ellis elements during my [id number] encounter with the patient. We conferred on the assessment and plan; I agree with the note as documented. The patient notes she is still significantly short of breath moving around her room. I explained to her that the combination of congestive heart failure and anemia would make this a very common problem for her. She did require 1 unit transfusion today. Hopefully she'll be able to keep the blood. I spoke to Dr. Santiago today. He would prefer to defer endoscopic evaluation until she is more stable in the outpatient setting. He understands if she continues to have active GI bleeding this will be a possibility. We'll monitor her situation carefully. (oil and gas field technician) JEANETTE SANCHEZ DO May 27, 2018 9:55 pm Boo Beavers MD May 29, 2018 11:14 pm
[2018-05-27] MEDS: LATANOPROST 0.005% OPHTH SOLN 2.5 ML OU SCH (22:23)
[2018-05-27] MEDS: MORPHINE 4 MG/ML 1ML VIAL/SYRINGE (J2270) IV PRN (22:24)
[2018-05-27 23:59] VITALS: BP 116/56
--- NOTE | 2018-05-28 00:45 | ECGEPIP ---
Stationary ECG Study [facility] - ED Test Date: 2018-05-27 Pat Name: JORGE SEQUEIRA Department: Room: [place] [address] Gender: F Data Communications Engineer: : 1945 Requested By: Aleksandr Velasco Order Number: [id number] Reading MD: Aleksandr Mcghee Measurements Intervals [place] Rate: 105 P: GA: 0 QRS: 35 QRSD: 79 T: 15 QT: 349 QTc: 461 Interpretive Statements ATRIAL FIBRILLATION WITH RAPID VENTRICULAR RESPONSE LOW QRS VOLTAGE NSTTW ABNORMALITIES SIMILAR TO 06/22/11 Electronically Signed On 05-28-2018 0:44:46 EST by Aleksandr Mcghee
[2018-05-28] MEDS: IPRATROPIUM 0.5MG/ALBUTEROL 2.5MG INH SOL UD 3ML (DUONEB)(J7620) NEB SCH ×4 (02:23→20:47)
[2018-05-28 03:30] VITALS: BP 110/50
[2018-05-28] MEDS: MORPHINE 4 MG/ML 1ML VIAL/SYRINGE (J2270) IV PRN ×2 (03:41→16:06)
[2018-05-28 04:12] LABS: HEMOGLOBIN 9.3 g/dl (12.0-15.5); MEAN CORPUSCULAR HEMOGLOBIN 24.5 pg (27.0-33.0); MEAN CORPUSCULAR VOLUME 78.9 fl (80.0-96.0); PLATELET COUNT, AUTOMATED 374 10^3/uL (150-450); WHITE BLOOD COUNT 6.7 10^3/uL (4.0-10.0)
[2018-05-28 04:45] LABS: BLOOD UREA NITROGEN 9 MG/DL (7-18); CALCIUM LEVEL 7.9 MG/DL (8.8-10.2); CARBON DIOXIDE LEVEL 28 MEQ/L (21-32); CHLORIDE LEVEL 101 MEQ/L (98-107); CREATININE FOR GFR 0.79 MG/DL (0.55-1.30); GLOMERULAR FILTRATION RATE > 60.0 (>39); GLUCOSE, FASTING 112 MG/DL (70-100); POTASSIUM SERUM 3.6 MEQ/L (3.5-5.1); SODIUM LEVEL 137 MEQ/L (136-145)
[2018-05-28] MEDS: SLF 3 ML SYR IV SCH ×3 (05:49→20:45)
[2018-05-28] MEDS: SUCRALFATE SUSP 1GM/10ML UD PO SCH ×4 (07:47→20:44)
[2018-05-28] MEDS: HumaLOG INSULIN (NovoLOG) PER UNIT SC SCH ×4 (07:48→21:00)
[2018-05-28 08:00] VITALS: BP 158/77
[2018-05-28] MEDS: PANTOPRAZOLE 40MG INJ (PROTONIX) (C9113) IV SCH ×2 (09:07→20:45)
[2018-05-28] MEDS: FUROSEMIDE 40 MG/4 ML VIAL (J1940) IV SCH ×2 (09:08→16:06)
[2018-05-28] MEDS: VITAMIN D 1,000 INTERNATIONAL UNITS TABLET PO SCH ×2 (09:09→20:45)
[2018-05-28] MEDS: ATENOLOL 50 MG TAB PO SCH ×2 (09:09→20:45)
[2018-05-28] MEDS: TIMOLOL MALEATE 0.5% OPHTH SOLN 5 ML OU SCH ×2 (09:10→16:46)
[2018-05-28 12:00] VITALS: BP 124/64
--- NOTE | 2018-05-28 18:17 | REP ---
CHEST PA AND LATERAL: 05/28/2018. Comparison: CT abdomen pelvis 05/27/2018, portable chest 05/27/2018 Clinical history: Follow-up pleural effusion. Evaluate for left-sided effusion. Findings: I have not been told if there has been thoracentesis. The patient had bilateral effusions on CT scan of the abdomen yesterday, 5.6 cm right and left side thickness at the level of the atrium, the upper most slice. There are again bilateral effusions with retrocardiac lower lobe consolidative atelectasis and/or infiltrates, similar to CT. There is cardiomegaly. May be some mild interstitial edema with Blanca B lines evident. Some venous hypertension and upper lung zones. The aorta is calcified at the arch, tortuous but unchanged. Some engorgement of the central veins at the hilum. Bones show demineralization without compression deformity. There are surgical clips in the upper abdomen. Prior cervical fusion C5-C7 with plate and screws seen as before. Impression: 1. Bilateral effusions with compressive atelectasis in the retrocardiac left lower lobe and medial right base. Less vascular congestion than yesterday's study. Certainly effusions persist. Electronically Signed by Trenton Estrada MD 05/28/2018 08:14 P
--- NOTE | 2018-05-28 19:07 | IPNPDOC ---
Subjective Date Seen The patient was seen on 05/28/18. Subjective Chief Complaint/HPI Still has some abdominal pain. Morphine brought pain down from 8 to 4/10 overnight. Has some lightheadedness with ambulating but none at rest. No bright red blood per rectum. ENT: Denies: Head Aches Cardiovascular: Denies: Chest Pain Gastrointestinal: Reports: Abdominal Pain; Denies: Vomiting Objective Physical Examination General Exam: Positive: Alert Eye Exam: Positive: PERRLA Chest Exam: Positive: Clear to auscultation; Negative: Rhonchi, Wheezing Heart Exam: Positive: Rate Normal; Negative: Murmurs Abdomen Exam: Positive: Normal bowel sounds, Tenderness (right and left upper quadrants) Extremity Exam: Negative: Clubbing Assessment /Plan Problems (1) GI bleed Problem Text: 05/28 Hgb stable this AM, 9.3. Continue to monitor. No more bright red blood per rectum. Consider advance to soft diet. Dr. Beavers discussed with Dr. Santiago possibility of monitoring bleeding and colonoscopy outpatient if patient remains stable. Repeat cbc in morning. monitor vitals. 05/27 Continue patient on IV protonix and carafate. Patient is NPO. Surgery consulted. On clears. Morphine IV and tylenol for pain. (2) Anemia due to GI blood loss Status: Acute Response to Treatment: Improving Discussed With: Nurse, Patient, Family with Pt Consent Problem Specific Plan: Repeat Labs Problem Text: She is status-post a 1 unit transfusion. Her hemoglobin was stable today. Hopefully the bleeding is stopped. We will need to monitor this carefully. (3) Acute CHF Status: Acute Problem Text: 05/28 Continue IV lasix. Still on oxygen at this time. Not on o xygen at home. 05/27 IV lasix. Continue diuresis. (4) Abdominal pain Problem Text: Continues to have abdominal pain at this time. Improving with Morphine. Has Tylenol as needed as well. (5) Atrial fibrillation Problem Text: On atenolol. Anticoagulants held. (6) CAD (coronary artery disease) Problem Text: Continue Statin. (7) HTN (hypertension) Problem Text: Monitor BP. (8) Diabetes mellitus Problem Text: Fingersticks and hypoglycemic protocol. Sliding scale. (9) History of peptic ulcer Problem Text: Patient has history of. Continue PPI. Plan/VTE VTE Prophylaxis Ordered?: Yes VS, I&O, 24H, Fishbone Vital Signs/I&O Vital Signs Date Time Temp Pulse Resp B/P (MAP) Pulse Ox O2 Delivery O2 Flow Rate FiO2 05/28/18 09:09 78 158/77 05/28/18 03:51 16 2.0 05/28/18 03:30 98.5 95 05/27/18 11:55 Nasal Cannula I&O- Last 24 Hours up to 6 AM 05/28/18 05:59 Intake Total 533 ml Output Total 1825 ml Balance -1292 ml Laboratory Data 24H LABS Laboratory Tests 2 05/27/18 12:34: Bedside Glucose (Misc Panel) 106 05/27/18 15:00: Troponin I < 0.02 05/27/18 17:17: Bedside Glucose (Misc Panel) 116H 05/27/18 20:45: Bedside Glucose (Misc Panel) 168H 05/28/18 03:27: Nucleated Red Blood Cells % (auto) 0.0, Anion Gap 8, Glomerular Filtration Rate > 60.0, Blood Urea Nitrogen 9, Creatinine 0.79, Sodium Level 137, Potassium Level 3.6#, Chloride Level 101, Carbon Dioxide Level 28, Calcium Level 7.9L CBC/BMP Laboratory Tests 05/27/18 11:37 05/27/18 19:45 05/28/18 03:27 Red Blood Count 3.80 L, Mean Corpuscular Volume 78.9 L, Mean Corpuscular Hemoglobin 24.5 L, Mean Corpuscular Hemoglobin Concent 31.0 L, Red Cell Distribution Width 17.3 H, Calcium Level 7.9 L GME ATTESTATION ATTENDING NOTE Family Medicine Attending Note: I was present on site to supervise Jeanette Sanchez D.O. (OGME-3). We discussed the history and exam. I confirmed the ellis elements during my [id number] encounter with the patient. We conferred on the assessment and plan; I agree with the note as documented. Her hemoglobin was stable today. She continues to have epigastric pain. She has not yet had a bowel movement so we can check her H. pylori status. Her congestive heart failure is coming under good control with diuresis. Continue current regimen, monitor. 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
[2018-05-28 20:00] VITALS: BP 144/67
[2018-05-28] MEDS: ATORVASTATIN 20 MG TAB PO SCH (20:44)
[2018-05-28] MEDS: LATANOPROST 0.005% OPHTH SOLN 2.5 ML OU SCH (20:45)
[2018-05-28 22:00] VITALS: BP 144/67
[2018-05-29] VITALS (8 sets, daily range): BP systolic 108–148; BP diastolic 60–80
[2018-05-29] MEDS: MORPHINE 4 MG/ML 1ML VIAL/SYRINGE (J2270) IV PRN ×4 (00:12→21:28)
[2018-05-29] MEDS: FUROSEMIDE 40 MG/4 ML VIAL (J1940) IV SCH ×4 (00:13→23:57)
[2018-05-29] MEDS: IPRATROPIUM 0.5MG/ALBUTEROL 2.5MG INH SOL UD 3ML (DUONEB)(J7620) NEB SCH ×4 (01:45→20:48)
[2018-05-29] MEDS: SLF 3 ML SYR IV SCH ×3 (04:40→21:29)
[2018-05-29 05:31] LABS: HEMATOCRIT 31.7 % (36.0-47.0); MEAN CORPUSCULAR HEMOGLOBIN 24.4 pg (27.0-33.0); MEAN CORPUSCULAR HGB CONC 31.5 g/dl (32.0-36.5); MEAN CORPUSCULAR VOLUME 77.3 fl (80.0-96.0); PLATELET COUNT, AUTOMATED 435 10^3/uL (150-450); WHITE BLOOD COUNT 7.7 10^3/uL (4.0-10.0)
[2018-05-29 05:57] LABS: BLOOD UREA NITROGEN 18 MG/DL (7-18); CARBON DIOXIDE LEVEL 30 MEQ/L (21-32); CHLORIDE LEVEL 99 MEQ/L (98-107); CREATININE FOR GFR 0.91 MG/DL (0.55-1.30); GLOMERULAR FILTRATION RATE > 60.0 (>39); GLUCOSE, FASTING 139 MG/DL (70-100); POTASSIUM SERUM 3.6 MEQ/L (3.5-5.1); SODIUM LEVEL 137 MEQ/L (136-145)
[2018-05-29] MEDS: SUCRALFATE SUSP 1GM/10ML UD PO SCH ×4 (08:56→21:28)
[2018-05-29] MEDS: HumaLOG INSULIN (NovoLOG) PER UNIT SC SCH ×4 (08:56→21:00)
[2018-05-29] MEDS ORDERED: FLUBLOK(EGG FREE)(QUAD)INFLUENZA VACC 0.5ML SYRINGE (90682)18YRS&OLDER IM ONE (09:00)
[2018-05-29] MEDS: PANTOPRAZOLE 40MG INJ (PROTONIX) (C9113) IV SCH ×2 (10:24→21:28)
[2018-05-29] MEDS: ATENOLOL 50 MG TAB PO SCH ×2 (10:25→21:29)
[2018-05-29] MEDS: VITAMIN D 1,000 INTERNATIONAL UNITS TABLET PO SCH ×2 (10:25→21:29)
[2018-05-29] MEDS: TIMOLOL MALEATE 0.5% OPHTH SOLN 5 ML OU SCH ×2 (10:26→17:32)
--- NOTE | 2018-05-29 12:10 | IPNPDOC ---
Subjective Date Seen The patient was seen on 05/29/18. Subjective Chief Complaint/HPI Patient notes pain still flares up to 11/20. Has used morphine a couple times of day. Last BM was . Is on soft diet and tolerating, no worsening pain, no nausea, vomiting. Still has some lightheadedness ambulating but not sitting. Objective Physical Examination General Exam: Positive: Alert Eye Exam: Positive: PERRLA Chest Exam: Positive: Clear to auscultation, Rales; Negative: Rhonchi, Wheezing Heart Exam: Positive: Rate Normal; Negative: Murmurs Abdomen Exam: Positive: Normal bowel sounds, Tenderness (right and left upper quadrants) Extremity Exam: Negative: Clubbing Assessment /Plan Problems (1) GI bleed Problem Text: 05/29 Hgb stable, 10 this morning. Repeat in morning. No signs of bleeding at this time. Still holding blood thinner. Remain on plan for colonoscopy after discharge. 05/28 Hgb stable this AM, 9.3. Continue to monitor. No more bright red blood per rectum. Consider advance to soft diet. Dr. Beavers discussed with Dr. Santiago possibility of monitoring bleeding and colonoscopy outpatient if patient remains stable. Repeat cbc in morning. monitor vitals. 05/27 Continue patient on IV protonix and carafate. Patient is NPO. Surgery consulted. On clears. Morphine IV and tylenol for pain. (2) Acute CHF Status: Acute Problem Text: 05/29 continue Lasix q8h. Still on oxygen. Will attempt wean today at rest. Monitor O2 while ambulating due to sob. 05/28 Continue IV lasix. Still on oxygen at this time. Not on oxygen at home. 05/27 IV lasix. Continue diuresis. (3) Abdominal pain Problem Text: 05/29 Abdominal pain a couple times a day. Morphine seems to help. 05/28 Continues to have abdominal pain at this time. Improving with Morphine. Has Tylenol as needed as well. (4) Atrial fibrillation Problem Text: On atenolol. Anticoagulants held. (5) CAD (coronary artery disease) Problem Text: Continue Statin. (6) HTN (hypertension) Problem Text: Monitor BP. (7) Diabetes mellitus Problem Text: Fingersticks and hypoglycemic protocol. Sliding scale. (8) History of peptic ulcer Problem Text: Patient has history of. Continue PPI. Plan/VTE VTE Prophylaxis Ordered?: Yes VS, I&O, 24H, Fishbone Vital Signs/I&O Vital Signs Date Time Temp Pulse Resp B/P (MAP) Pulse Ox O2 Delivery O2 Flow Rate FiO2 05/29/18 10:25 89 140/70 05/29/18 09:01 2.0 05/29/18 08:00 96.4 18 98 05/27/18 11:55 Nasal Cannula I&O- Last 24 Hours up to 6 AM 05/29/18 06:00 Intake Total 860 ml Output Total 2050 ml Balance -1190 ml Laboratory Data 24H LABS Laboratory Tests 2 05/28/18 16:41: Bedside Glucose (Misc Panel) 100 05/28/18 20:30: Bedside Glucose (Misc Panel) 137H 05/29/18 04:31: Nucleated Red Blood Cells % (auto) 0.0, Anion Gap 8, Glomerular Filtration Rate > 60.0, Blood Urea Nitrogen 18#, Creatinine 0.91, Sodium Level 137, Potassium Level 3.6, Chloride Level 99, Carbon Dioxide Level 30, Calcium Level 8.0L CBC/BMP Laboratory Tests 05/29/18 04:31 Red Blood Count 4.10, Mean Corpuscular Volume 77.3 L, Mean Corpuscular Hemoglobin 24.4 L, Mean Corpuscular Hemoglobin Concent 31.5 L, Red Cell Distribution Width 17.4 H, Calcium Level 8.0 L GME ATTESTATION GME ATTESTATION My faculty preceptor for this patient encounter was physically present during the encounter and was fully available. All aspects of the patient interview, examination, medical decision making process, and medical care plan development were reviewed and approved by the faculty preceptor. The faculty preceptor is aware and concurs with the plan as stated in the body of this note and will attest to such by his/her cosignature. ATTENDING NOTE The patient was seen and examined and the case was reviewed with Dr. Sanchez. JEANETTE SANCHEZ DO May 29, 2018 12:10 Carl Huggins M.D. May 31, 2018 08:01
[2018-05-29] MEDS: ATORVASTATIN 20 MG TAB PO SCH (21:29)
[2018-05-29] MEDS: LATANOPROST 0.005% OPHTH SOLN 2.5 ML OU SCH (21:29)
[2018-05-30] MEDS: IPRATROPIUM 0.5MG/ALBUTEROL 2.5MG INH SOL UD 3ML (DUONEB)(J7620) NEB SCH ×4 (02:45→20:25)
[2018-05-30 04:00] VITALS: BP 114/69
[2018-05-30] MEDS: SLF 3 ML SYR IV SCH ×3 (05:53→21:31)
[2018-05-30 07:01] LABS: HEMATOCRIT 36.2 % (36.0-47.0); HEMOGLOBIN 11.1 g/dl (12.0-15.5); MEAN CORPUSCULAR HEMOGLOBIN 24.2 pg (27.0-33.0); MEAN CORPUSCULAR HGB CONC 30.7 g/dl (32.0-36.5); MEAN CORPUSCULAR VOLUME 78.9 fl (80.0-96.0); PLATELET COUNT, AUTOMATED 431 10^3/uL (150-450); RED BLOOD COUNT 4.59 10^6/uL (4.00-5.40); WHITE BLOOD COUNT 8.8 10^3/uL (4.0-10.0)
[2018-05-30 07:16] LABS: BLOOD UREA NITROGEN 20 MG/DL (7-18); CALCIUM LEVEL 8.6 MG/DL (8.8-10.2); CARBON DIOXIDE LEVEL 30 MEQ/L (21-32); CHLORIDE LEVEL 97 MEQ/L (98-107); CREATININE FOR GFR 0.93 MG/DL (0.55-1.30); GLOMERULAR FILTRATION RATE > 60.0 (>39); GLUCOSE, FASTING 148 MG/DL (70-100); POTASSIUM SERUM 3.4 MEQ/L (3.5-5.1); SODIUM LEVEL 137 MEQ/L (136-145)
[2018-05-30] MEDS: HumaLOG INSULIN (NovoLOG) PER UNIT SC SCH ×4 (07:30→21:00)
[2018-05-30 08:00] VITALS: BP 132/68
[2018-05-30] MEDS: FUROSEMIDE 40 MG/4 ML VIAL (J1940) IV SCH (08:30)
[2018-05-30] MEDS: ATENOLOL 50 MG TAB PO SCH ×2 (08:30→21:31)
[2018-05-30] MEDS: SUCRALFATE SUSP 1GM/10ML UD PO SCH ×4 (08:30→21:29)
[2018-05-30] MEDS: TIMOLOL MALEATE 0.5% OPHTH SOLN 5 ML OU SCH ×2 (09:00→18:41)
[2018-05-30] MEDS: PANTOPRAZOLE 40MG INJ (PROTONIX) (C9113) IV SCH ×2 (09:00→21:29)
[2018-05-30] MEDS: VITAMIN D 1,000 INTERNATIONAL UNITS TABLET PO SCH ×2 (09:00→21:31)
[2018-05-30 12:00] VITALS: BP 116/60
[2018-05-30] MEDS: POTASSIUM CHLORIDE 10 MEQ SR TABLET PO SCH (13:28)
[2018-05-30 16:00] VITALS: BP 134/64
[2018-05-30 20:00] VITALS: BP 132/69
[2018-05-30] MEDS: LATANOPROST 0.005% OPHTH SOLN 2.5 ML OU SCH (21:30)
[2018-05-30] MEDS: MORPHINE 4 MG/ML 1ML VIAL/SYRINGE (J2270) IV PRN (21:30)
[2018-05-30] MEDS: ATORVASTATIN 20 MG TAB PO SCH (21:30)
[2018-05-30 23:59] VITALS: BP 111/69
[2018-05-31] VITALS (7 sets, daily range): BP systolic 117–156; BP diastolic 59–78
[2018-05-31] MEDS: IPRATROPIUM 0.5MG/ALBUTEROL 2.5MG INH SOL UD 3ML (DUONEB)(J7620) NEB SCH ×4 (00:59→19:39)
[2018-05-31] MEDS: MORPHINE 4 MG/ML 1ML VIAL/SYRINGE (J2270) IV PRN (04:27)
[2018-05-31 05:39] LABS: HEMOGLOBIN 10.6 g/dl (12.0-15.5); MEAN CORPUSCULAR HEMOGLOBIN 24.7 pg (27.0-33.0); MEAN CORPUSCULAR HGB CONC 31.2 g/dl (32.0-36.5); MEAN CORPUSCULAR VOLUME 79.3 fl (80.0-96.0); PLATELET COUNT, AUTOMATED 377 10^3/uL (150-450); RED BLOOD COUNT 4.29 10^6/uL (4.00-5.40); WHITE BLOOD COUNT 7.6 10^3/uL (4.0-10.0)
[2018-05-31] MEDS: SLF 3 ML SYR IV SCH ×3 (05:49→21:17)
[2018-05-31 06:00] LABS: BLOOD UREA NITROGEN 19 MG/DL (7-18); CALCIUM LEVEL 8.2 MG/DL (8.8-10.2); CARBON DIOXIDE LEVEL 30 MEQ/L (21-32); CHLORIDE LEVEL 99 MEQ/L (98-107); CREATININE FOR GFR 0.88 MG/DL (0.55-1.30); GLOMERULAR FILTRATION RATE > 60.0 (>39); GLUCOSE, FASTING 143 MG/DL (70-100); POTASSIUM SERUM 3.5 MEQ/L (3.5-5.1); SODIUM LEVEL 136 MEQ/L (136-145)
[2018-05-31] MEDS: SUCRALFATE SUSP 1GM/10ML UD PO SCH ×4 (08:21→21:15)
[2018-05-31] MEDS: HumaLOG INSULIN (NovoLOG) PER UNIT SC SCH ×4 (08:22→20:47)
[2018-05-31] MEDS: SLF 3 ML SYR IV PRN (08:23)
[2018-05-31] MEDS: PANTOPRAZOLE 40MG INJ (PROTONIX) (C9113) IV SCH ×2 (08:23→21:15)
[2018-05-31] MEDS: ATENOLOL 50 MG TAB PO SCH ×2 (08:29→21:16)
[2018-05-31] MEDS: POTASSIUM CHLORIDE 10 MEQ SR TABLET PO SCH (08:29)
[2018-05-31] MEDS: VITAMIN D 1,000 INTERNATIONAL UNITS TABLET PO SCH ×2 (08:30→21:16)
[2018-05-31] MEDS: FUROSEMIDE 40 MG TAB PO SCH (08:30)
[2018-05-31] MEDS: TIMOLOL MALEATE 0.5% OPHTH SOLN 5 ML OU SCH ×2 (08:32→17:59)
[2018-05-31 10:52] LABS: ALBUMIN 3.1 GM/DL (3.2-5.2); ALT/SGPT 18 U/L (12-78); BILIRUBIN,DIRECT 0.3 MG/DL (0.0-0.2); BILIRUBIN,TOTAL 0.8 MG/DL (0.2-1.0); TOTAL PROTEIN 6.3 GM/DL (6.4-8.2)
--- NOTE | 2018-05-31 11:23 | IPNPDOC ---
Subjective Date Seen The patient was seen on 05/31/18. Subjective Chief Complaint/HPI Patient reports still having some pain and discomfort in abdomen. Has still used the IV morphine. The pain starts on the right and goes across to the left. Her SOB has improved and is off oxygen at rest. Still reports some lightheadedness, sometimes at rest and sometimes ambulating. Constitutional: Denies: Chills, Fever Pulmonary: Denies: Dyspnea, Cough Objective Physical Examination General Exam: Positive: Alert Eye Exam: Positive: PERRLA Chest Exam: Positive: Clear to auscultation, Rales; Negative: Rhonchi, Wheezing Heart Exam: Positive: Rate Normal; Negative: Murmurs Abdomen Exam: Positive: Normal bowel sounds, Tenderness (right and left upper quadrants) Extremity Exam: Negative: Clubbing Assessment /Plan Problems (1) GI bleed Problem Text: 05/31 Hgb stable. No bright blood per rectum. 05/28 Hgb stable this AM, 9.3. Continue to monitor. No more bright red blood per rectum. Consider advance to soft diet. Dr. Beavers discussed with Dr. Santiago possibility of monitoring bleeding and colonoscopy outpatient if patient remains stable. Repeat cbc in morning. monitor vitals. 05/27 Continue patient on IV protonix and carafate. Patient is NPO. Surgery consulted. On clears. Morphine IV and tylenol for pain. (2) Anemia due to GI blood loss Status: Acute Response to Treatment: Improving Discussed With: Nurse, Patient, Family with Pt Consent Problem Specific Plan: Repeat Labs Problem Text: She is status-post a 1 unit transfusion. Her hemoglobin was stable today. Hopefully the bleeding is stopped. We will need to monitor this carefully. (3) Acute CHF Status: Acute Problem Text: 05/31 On PO Lasix, 40 mg daily. Home dose was 20 mg. Monitor I+O. No longer on O2. 05/28 Continue IV lasix. Still on oxygen at this time. Not on oxygen at home. 05/27 IV lasix. Continue diuresis. Patient has diastolic CHF. Recent ECHO 06/01 shows EF of 65%. (4) Abdominal pain Problem Text: 05/31 Continues to have abdominal pain. Used Morphine yesterday BID. Stopping today. Will see if patient can manage pain with Tylenol. Continues to have abdominal pain at this time. Improving with Morphine. Has Tylenol as needed as well. (5) Atrial fibrillation Problem Text: 05/31 continue to hold anticoagulants. On atenolol. Anticoagulants held. (6) CAD (coronary artery disease) Problem Text: Continue Statin. (7) HTN (hypertension) Problem Text: Monitor BP. (8) Diabetes mellitus Problem Text: Fingersticks and hypoglycemic protocol. Sliding scale. (9) History of peptic ulcer Problem Text: Patient has history of. Continue PPI. Plan/VTE VTE Prophylaxis Ordered?: Yes VS, I&O, 24H, Fishbone Vital Signs/I&O Vital Signs Date Time Temp Pulse Resp B/P (MAP) Pulse Ox O2 Delivery O2 Flow Rate FiO2 05/31/18 08:29 82 117/59 05/31/18 08:00 96.9 19 97 05/31/18 04:37 2.0 05/27/18 11:55 Nasal Cannula I&O- Last 24 Hours up to 6 AM 05/31/18 06:00 Intake Total 480 ml Output Total 800 ml Balance -320 ml Laboratory Data 24H LABS Laboratory Tests 2 05/30/18 12:40: Bedside Glucose (Misc Panel) 216H 05/30/18 14:07: 05/30/18 17:41: Bedside Glucose (Misc Panel) 198H 05/30/18 20:13: Bedside Glucose (Misc Panel) 129H 05/31/18 05:26: Nucleated Red Blood Cells % (auto) 0.0, Anion Gap 7L, Glomerular Filtration Rate > 60.0, Calcium Level 8.2L, Aspartate Amino Transf (AST/SGOT) 22, Alanine Aminotransferase (ALT/SGPT) 18, Alkaline Phosphatase 79, Total Bilirubin 0.8, Direct Bilirubin 0.3H, Total Protein 6.3L, Albumin 3.1L, Albumin/Globulin Ratio 0.97L CBC/BMP Laboratory Tests 05/31/18 05:26 Red Blood Count 4.29, Mean Corpuscular Volume 79.3 L, Mean Corpuscular Hemoglobin 24.7 L, Mean Corpuscular Hemoglobin Concent 31.2 L, Red Cell Distribution Width 17.4 H, Calcium Level 8.2 L Microbiology Microbiology 05/29/18 Stool Occult Blood (SCOTT) - Final, Complete GME ATTESTATION GME ATTESTATION My faculty preceptor for this patient encounter was physically present during the encounter and was fully available. All aspects of the patient interview, examination, medical decision making process, and medical care plan development were reviewed and approved by the faculty preceptor. The faculty preceptor is aware and concurs with the plan as stated in the body of this note and will attest to such by his/her cosignature. JEANETTE SANCHEZ DO May 31, 2018 11:23
[2018-05-31 18:09] LABS: HEMOGLOBIN 11.1 g/dl (12.0-15.5)
--- NOTE | 2018-05-31 18:30 | IPN ---
DATE: 05/30/2018 The patient is seen today in progressive care unit (PCU). She reports that she got lightheaded on standing up today also nauseated, this has since cleared. She reported that the nurse checked her blood pressure afterwards, although it is not recorded. She had a bowel movement today. She is not having much in the way of abdominal discomfort today. Breathing is better. She does have occasional cough. No chest pains or palpitations. She is currently on Lasix injection and sliding-scale insulin as needed for hypoglycemia. She is on Lipitor, latanoprost, sucralfate, pantoprazole, sliding-scale insulin, as-needed morphine which she used last about 14 hours ago. She is also on atenolol 75 mg twice a day, vitamin D, timolol eye drops and albuterol [id number]. On examination, temperature 96.7, blood pressure 132/68, pulse 90 and irregular, oxygen saturation is 100% on 2 liters. She is alert, oriented, cooperative, not at all in any distress. Her eyes are clear. Speech is clear. Mucous membranes are moist. There is no neck masses, tenderness or adenopathy. No carotid bruits. Her lungs show some scattered rhonchi, no basilar rales. Heart is irregular without any murmur, click or gallop. Abdomen is soft, today is nontender without any masses or organomegaly. Bowels sounds are active. There is no edema. Labs today show hemoglobin of 11.1, WBC is 8800,platelets 481,000. Her potassium is a little bit low at 3.4, sodium 137, BUN 20, creatinine 0.93, glucose 148. ASSESSMENT: 1. Gastrointestinal (GI) bleeding. Hemoglobin remains stable. We have not restarted anticoagulants. 2. Congestive heart failure (CHF), improved. It think her lightheadedness may be due to her diuresis and will plan on discontinuing her IV Lasix and putting her on by mouth. 3. Hypokalemia. Will supplement potassium. 4. Abdominal pain. This seems to be improved. 5. Atrial fibrillation, rate controlled. 6. Coronary artery disease. No acute symptoms. 7. Hypertension, stable. 8. Diabetes, stable. 9. History of peptic ulcer disease. On treatment with sucralfate and proton pump inhibitor (PPI). PLAN: As above. Continue to monitor her labs and blood pressure and bowel movements. My understanding is that she had colonoscopy planned for after discharge.
[2018-05-31] MEDS: LATANOPROST 0.005% OPHTH SOLN 2.5 ML OU SCH (21:15)
[2018-05-31] MEDS: ATORVASTATIN 20 MG TAB PO SCH (21:16)
[2018-06-01] MEDS: IPRATROPIUM 0.5MG/ALBUTEROL 2.5MG INH SOL UD 3ML (DUONEB)(J7620) NEB SCH ×2 (01:50→07:23)
[2018-06-01 04:00] VITALS: BP 132/80
[2018-06-01] MEDS: SLF 3 ML SYR IV SCH (05:24)
[2018-06-01 06:02] LABS: HEMATOCRIT 32.3 % (36.0-47.0); HEMOGLOBIN 9.9 g/dl (12.0-15.5); MEAN CORPUSCULAR HEMOGLOBIN 24.4 pg (27.0-33.0); MEAN CORPUSCULAR HGB CONC 30.7 g/dl (32.0-36.5); MEAN CORPUSCULAR VOLUME 79.6 fl (80.0-96.0); PLATELET COUNT, AUTOMATED 372 10^3/uL (150-450); RED BLOOD COUNT 4.06 10^6/uL (4.00-5.40); WHITE BLOOD COUNT 6.4 10^3/uL (4.0-10.0)
[2018-06-01 06:10] LABS: BLOOD UREA NITROGEN 17 MG/DL (7-18); CARBON DIOXIDE LEVEL 27 MEQ/L (21-32); CHLORIDE LEVEL 102 MEQ/L (98-107); CREATININE FOR GFR 0.82 MG/DL (0.55-1.30); GLOMERULAR FILTRATION RATE > 60.0 (>39); GLUCOSE, FASTING 149 MG/DL (70-100); POTASSIUM SERUM 3.7 MEQ/L (3.5-5.1); SODIUM LEVEL 136 MEQ/L (136-145)
[2018-06-01] MEDS: HumaLOG INSULIN (NovoLOG) PER UNIT SC SCH ×2 (07:35→11:44)
[2018-06-01] MEDS: SUCRALFATE SUSP 1GM/10ML UD PO SCH ×2 (07:35→11:44)
[2018-06-01 08:00] VITALS: BP 156/74
[2018-06-01] MEDS: TIMOLOL MALEATE 0.5% OPHTH SOLN 5 ML OU SCH (08:40)
[2018-06-01] MEDS: FUROSEMIDE 40 MG TAB PO SCH (08:40)
[2018-06-01] MEDS: PANTOPRAZOLE 40MG INJ (PROTONIX) (C9113) IV SCH (08:40)
[2018-06-01 08:41] VITALS: BP 156/74
[2018-06-01] MEDS: ATENOLOL 50 MG TAB PO SCH (08:41)
[2018-06-01] MEDS: VITAMIN D 1,000 INTERNATIONAL UNITS TABLET PO SCH (08:41)
[2018-06-01] MEDS: POTASSIUM CHLORIDE 10 MEQ SR TABLET PO SCH (08:42)
[2018-06-01] MEDS ORDERED: FURO40TA2 PO (10:20)
[2018-06-01] MEDS ORDERED: KLOR10TA76 PO (10:20)
[2018-06-01] MEDS ORDERED: SUCR10SS PO (10:20)
--- NOTE | 2018-06-02 10:01 | DSES ---
DATE OF ADMISSION: 05/27/2018 DATE OF DISCHARGE: 06/01/2018 PRIMARY CARE PROVIDER: Sandor Pineda MD ATTENDING: Today is Ria Wan DO HISTORY: This is a 73-year-old female patient who presented to [facility] Emergency Room with history of bright red blood per rectum and worsening dyspnea on exertion. She was admitted to the hospital for a gastrointestinal (GI) bleed, acute on chronic heart failure. During her hospitalization, she has remained medically stable. She did require 1 unit of packed red blood cells with improvement and then subsequent stability in her hemoglobin. She has had no further bright red blood per rectum. She has had diuresis with intravenous (IV) Lasix and transitioned from IV to oral Lasix. She is being discharged on 40 mg daily. Her previous home dose was 20 mg daily. She has had some intermittent periods of abdominal pain requiring the use of morphine. This has been discontinued, and she has done well in the last 24 hours. The plan is for an outpatient colonoscopy for the patient with Dr. Santiago. Her discharge diagnoses include: 1. Acute anemia secondary to GI blood loss. 2. Acute diastolic congestive heart failure. 3. Abdominal pain. 4. Atrial fibrillation. 5. Coronary artery disease. 6. Hypertension. 7. Diabetes mellitus type 2. DISCHARGE MEDICATIONS: Include: - furosemide 40 mg daily - potassium chloride 20 mEq daily - Carafate 1 gram by mouth before food and nightly - Eliquis 5 mg twice a day - aspirin 81 mg daily - atenolol 75 mg twice daily - atorvastatin 80 mg nightly - calcium 600 mg by mouth twice a day - vitamin D 1000 units by mouth twice a day - ICaps two caps nightly - metformin 1000 mg by mouth twice a day - omeprazole 20 mg by mouth twice a day - Simbrinza 1/0.2% each eye twice daily - timolol 0.5% each eye twice daily - Travatan each eye before bed DISCHARGE PLAN: Will be to followup with Dr. Pineda in 1 week. Activity should be as tolerated. Diet should be low-sodium.
== END 2018-06-01 11:48 | disposition home or self-care (01) | DRG 377 ==
LOC: M ED 02:04 → M ED INP 04:53 → M PCU 13:16
PROVIDERS: ADMIT Internal Medicine; ATTEND Family Medicine
PROC: 30233N1 Transfusion of Nonautologous Red Blood Cells into Peripheral Vein, Percutaneous Approach (ICD-10-PCS; principal; 2018-05-27)
DX: K92.2 Gastrointestinal hemorrhage, unspecified (principal); I50.33 Acute on chronic diastolic (congestive) heart failure; D62 Acute posthemorrhagic anemia; I48.91 Unspecified atrial fibrillation; I25.10 Atherosclerotic heart disease of native coronary artery without angina pectoris; I11.0 Hypertensive heart disease with heart failure; E11.9 Type 2 diabetes mellitus without complications; Z79.899 Other long term (current) drug therapy; Z79.01 Long term (current) use of anticoagulants; E78.5 Hyperlipidemia, unspecified; H40.9 Unspecified glaucoma; Z95.1 Presence of aortocoronary bypass graft; Z87.891 Personal history of nicotine dependence; R10.9 Unspecified abdominal pain

== ENCOUNTER → 2018-06-10 | Outpatient (REF) | payer MEDICARE ==
[~2018-06-10] MED LIST changes: +ASPI81TAEC PO; +ATEN50TA2 PO; +ELIQ5TAB PO; +FURO20TA2; +FURO20TA2 PO; +FURO40TA2 PO; +KLOR10TA76 PO; +METF500T4 PO; +OMEP20CA3 PO; +SUCR10SS PO; +TIMO0.5S29 OU
[2018-06-10 18:35] LABS: BASO # 0.1 10^3/uL (0.0-0.2); BASO % 0.8 % (0.0-1.0); EOS # 0.1 10^3/uL (0.0-0.50); EOS % 1.2 % (0.0-3.0); HEMATOCRIT 34.9 % (36.0-47.0); HEMOGLOBIN 10.3 g/dl (12.0-15.5); LYMPH # 1.2 10^3/uL (1.5-4.5); LYMPH % 20.4 % (24.0-44.0); MEAN CORPUSCULAR HEMOGLOBIN 24.3 pg (27.0-33.0); MEAN CORPUSCULAR HGB CONC 29.5 g/dl (32.0-36.5); MEAN CORPUSCULAR VOLUME 82.3 fl (80.0-96.0); MONO # 0.6 10^3/uL (0.0-0.8); MONO % 10.5 % (0.0-5.0); NEUTROPHILS % 66.9 % (36.0-66.0); PLATELET COUNT, AUTOMATED 460 10^3/uL (150-450); RED BLOOD COUNT 4.24 10^6/uL (4.00-5.40)
[2018-06-10 19:15] LABS: ALBUMIN 3.8 GM/DL (3.2-5.2); ALT/SGPT 33 U/L (12-78); BILIRUBIN,TOTAL 0.6 MG/DL (0.2-1.0); BLOOD UREA NITROGEN 12 MG/DL (7-18); CALCIUM LEVEL 8.6 MG/DL (8.8-10.2); CARBON DIOXIDE LEVEL 26 MEQ/L (21-32); CHLORIDE LEVEL 105 MEQ/L (98-107); CREATININE FOR GFR 0.81 MG/DL (0.55-1.30); FERRITIN 12 NG/ML (8-252); GLOMERULAR FILTRATION RATE > 60.0 (>39); GLUCOSE, FASTING 127 MG/DL (70-100); IRON (FE) 31 UG/DL (50-170); MAGNESIUM LEVEL 2.2 MG/DL (1.8-2.4); NT-PRO BNP 2180 PG/ML (<125); PERCENT SATURATION 6.6 % (13.2-45.0); POTASSIUM SERUM 4.6 MEQ/L (3.5-5.1); SODIUM LEVEL 140 MEQ/L (136-145); TOTAL IRON BINDING CAPACITY 469 UG/DL (250-450); TOTAL PROTEIN 6.7 GM/DL (6.4-8.2)
[2018-06-10 19:16] LABS: VITAMIN B12 LEVEL 677 PG/ML (247-911)
== END ==
LOC: M SFHCPLAZ 15:27
PROVIDERS: ATTEND Family Medicine
DX: D50.9 Iron deficiency anemia, unspecified (principal); I50.32 Chronic diastolic (congestive) heart failure
CPT/HCPCS: 36415; 80053; 82378; 82607; 82728; 83550; 83735; 83880; 85025; G0463

== ENCOUNTER → 2018-06-16 | Outpatient (REF) | payer MEDICARE ==
[2018-06-16 12:28] LABS: ALBUMIN 3.5 GM/DL (3.2-5.2); ALT/SGPT 28 U/L (12-78); BILIRUBIN,TOTAL 0.6 MG/DL (0.2-1.0); BLOOD UREA NITROGEN 10 MG/DL (7-18); CALCIUM LEVEL 8.9 MG/DL (8.8-10.2); CARBON DIOXIDE LEVEL 26 MEQ/L (21-32); CHLORIDE LEVEL 103 MEQ/L (98-107); CREATININE FOR GFR 0.87 MG/DL (0.55-1.30); GLOMERULAR FILTRATION RATE > 60.0 (>39); GLUCOSE, FASTING 154 MG/DL (70-100); NT-PRO BNP 2006 PG/ML (<125); POTASSIUM SERUM 4.2 MEQ/L (3.5-5.1); SODIUM LEVEL 138 MEQ/L (136-145); TOTAL PROTEIN 6.2 GM/DL (6.4-8.2)
== END ==
LOC: M SFHCPLAZ 09:40
PROVIDERS: ATTEND Physician Assistant Medical
DX: I50.32 Chronic diastolic (congestive) heart failure (principal)
CPT/HCPCS: 36415; 80053; 83880; G0463

== ENCOUNTER → 2018-07-05 | Outpatient (REF) | payer MEDICARE ==
[2018-07-05 15:28] LABS: ALBUMIN 3.7 GM/DL (3.2-5.2); CALCIUM LEVEL 8.7 MG/DL (8.8-10.2); CREATININE FOR GFR 1.04 MG/DL (0.55-1.30); GLOMERULAR FILTRATION RATE 55.3 (>39); MAGNESIUM LEVEL 2.1 MG/DL (1.8-2.4); PHOSPHORUS LEVEL 4.3 MG/DL (2.5-4.9); POTASSIUM SERUM 3.8 MEQ/L (3.5-5.1)
== END ==
LOC: M SFHCPLAZ 10:54
PROVIDERS: ATTEND Nurse Practitioner Family
DX: I50.32 Chronic diastolic (congestive) heart failure (principal)

== ENCOUNTER → 2018-09-03 | Outpatient (REF) | payer MEDICARE ==
[~2018-09-03] MED LIST changes: -/ADVA50050 INH; +ADVA1AER2 INH; -ASPI1TAB PO; +ASPI81TA26 PO; +ICAPTAB PO
[2018-09-03 12:11] LABS: BASO # 0.1 10^3/uL (0.0-0.2); BASO % 0.8 % (0.0-1.0); EOS # 0.1 10^3/uL (0.0-0.50); EOS % 1.2 % (0.0-3.0); HEMATOCRIT 38.9 % (36.0-47.0); HEMOGLOBIN 12.4 g/dl (12.0-15.5); LYMPH # 1.1 10^3/uL (1.5-4.5); LYMPH % 18.7 % (24.0-44.0); MEAN CORPUSCULAR HEMOGLOBIN 27.2 pg (27.0-33.0); MEAN CORPUSCULAR HGB CONC 31.9 g/dl (32.0-36.5); MEAN CORPUSCULAR VOLUME 85.3 fl (80.0-96.0); MONO # 0.5 10^3/uL (0.0-0.8); MONO % 7.7 % (0.0-5.0); NEUTROPHILS # 4.3 10^3/uL (1.8-7.7); NEUTROPHILS % 71.3 % (36.0-66.0); PLATELET COUNT, AUTOMATED 349 10^3/uL (150-450); RED BLOOD COUNT 4.56 10^6/uL (4.00-5.40)
[2018-09-03 12:21] LABS: INR 1.08; PROTHROMBIN TIME 14.1 SECONDS (12.1-14.4)
[2018-09-03 12:22] LABS: PARTIAL THROMBOPLASTIN TIME 27.3 SECONDS (25.4-37.6)
[2018-09-03 12:46] LABS: CREATININE, URINE 73.9 MG/DL; MALB URINE SIEMENS 7.2 MG/L; MAU/CREAT RATIO 9.7 MCG/MG (0.0-30.0)
[2018-09-03 13:02] LABS: ALBUMIN 3.6 GM/DL (3.2-5.2); ALT/SGPT 32 U/L (12-78); BILIRUBIN,TOTAL 0.8 MG/DL (0.2-1.0); BLOOD UREA NITROGEN 10 MG/DL (7-18); CALCIUM LEVEL 8.5 MG/DL (8.8-10.2); CARBON DIOXIDE LEVEL 27 MEQ/L (21-32); CHLORIDE LEVEL 106 MEQ/L (98-107); CHOLESTEROL LEVEL 153 MG/DL (<200); CHOLESTEROL RISK RATIO 2.154 (<5); CREATININE FOR GFR 0.87 MG/DL (0.55-1.30); GLOMERULAR FILTRATION RATE > 60.0 (>39); GLUCOSE, FASTING 143 MG/DL (70-100); HDL CHOLESTEROL 71 MG/DL (>40); LDL CHOLESTEROL 57 MG/DL (<100); MAGNESIUM LEVEL 2.1 MG/DL (1.8-2.4); NON-HDL-C 82 MG/DL; NT-PRO BNP 359 PG/ML (<125); POTASSIUM SERUM 5.2 MEQ/L (3.5-5.1); SODIUM LEVEL 140 MEQ/L (136-145); TOTAL PROTEIN 7.1 GM/DL (6.4-8.2); TRIGLYCERIDES LEVEL 127 MG/DL (<150)
[2018-09-03 13:43] LABS: HEMOGLOBIN A1c 7.7 %
[2018-09-03 14:27] LABS: TOTAL 25(OH) VITAMIN D 46.2 NG/ML (30.0-100.0)
[2018-09-03 14:28] LABS: PTH INTACT 51.6 PG/ML (18.5-88.0)
== END ==
LOC: M SFHCPLAZ 08:55
PROVIDERS: ATTEND Nurse Practitioner Family
DX: I50.32 Chronic diastolic (congestive) heart failure (principal); I10 Essential (primary) hypertension; E11.9 Type 2 diabetes mellitus without complications; E78.5 Hyperlipidemia, unspecified; I48.91 Unspecified atrial fibrillation; E55.9 Vitamin D deficiency, unspecified; Z79.82 Long term (current) use of aspirin

== ENCOUNTER → 2018-09-14 | Day surgery (SDC) | payer MEDICARE ==
[~2018-09-14] VITALS: Ht 147.3 cm; Wt 59.8 kg
[~2018-09-14] MED LIST changes: +LIDOCAINE 2% INJ 100 MG/5 ML SDV (FOR ANES.) As Ordered ONE; +NS 1,000 ML IV ONE; +PROPOFOL 200 MG/20 ML VIAL As Ordered ONE
[2018-09-14 11:55] VITALS: BP 172/77
--- NOTE | 2018-09-14 12:03 | ROOR ---
Patient Name: Antonia Crooks Procedure Date: 09/14/2018 10:31 AM Date of : 1945 Age: 73 Room: [facility] Gender: Female Note Status: Finalized Procedure: Upper GI endoscopy Indications: Iron deficiency anemia, Recent gastrointestinal bleeding, Personal history of peptic ulcer disease Providers: Jhony Santiago MD Referring MD: Sandor Pineda MD Requesting Provider: Medicines: Monitored Anesthesia Care Complications: No immediate complications. Procedure: Pre-Anesthesia Assessment: - Prior to the procedure, a History and Physical was performed, and patient medications and allergies were reviewed. The patient is competent. The risks and benefits of the procedure and the sedation options and risks were discussed with the patient. All questions were answered and informed consent was obtained. Patient identification and proposed procedure were verified by the physician, the nurse and the anesthesiologist in the procedure room. Mental Status Examination: alert and oriented. Prophylactic Antibiotics: The patient does not require prophylactic antibiotics. Prior Anticoagulants: The patient has taken no previous anticoagulant or antiplatelet agents. ASA Grade Assessment: III - A patient with severe systemic disease. After reviewing the risks and benefits, the patient was deemed in satisfactory condition to undergo the procedure. The anesthesia plan was to use monitored anesthesia care (MAC). Immediately prior to administration of medications, the patient was re-assessed for adequacy to receive sedatives. The heart rate, respiratory rate, oxygen saturations, blood pressure, adequacy of pulmonary ventilation, and response to care were monitored throughout the procedure. The physical status of the patient was re-assessed after the procedure. The Endoscope was introduced through the mouth, and advanced to the proximal jejunum. The upper GI endoscopy was accomplished without difficulty. The patient tolerated the procedure well. Findings: The examined esophagus was normal. 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 The gastrojejunal anastomosis was characterized by healthy appearing mucosa. This was traversed. The efferent limb was examined. The afferent limb was not examined as it could not be found. Appearance seems consistent with a Lenka-en-y reconstruction. The examined jejunum was normal. The scope was advanced down the jejunum 30-40 cm. Impression: - Normal esophagus. 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 - Normal examined jejunum. - No specimens collected. Recommendation: - Discharge patient to home. - Resume previous diet. - Continue present medications. - Return to my office PRN. Jhony Santiago MD Jhony Santiago MD 09/14/2018 12:03:07 PM Electronically signed by Jhony Santiago MD Number of Addenda: 0 Note Initiated On: 09/14/2018 10:31 AM Estimated Blood Loss: Estimated blood loss: none.
--- NOTE | 2018-09-14 12:44 | ROOR ---
Patient Name: Antonia Crooks Procedure Date: 09/14/2018 10:32 AM Date of : 1945 Age: 73 Room: [facility] Gender: Female Note Status: Finalized Procedure: Colonoscopy Indications: Rectal bleeding, Iron deficiency anemia Providers: Jhony Santiago MD Referring MD: Sandor Pineda MD Requesting Provider: Medicines: Monitored Anesthesia Care Complications: No immediate complications. Procedure: Pre-Anesthesia Assessment: - Prior to the procedure, a History and Physical was performed, and patient medications and allergies were reviewed. The patient is competent. The risks and benefits of the procedure and the sedation options and risks were discussed with the patient. All questions were answered and informed consent was obtained. Patient identification and proposed procedure were verified by the physician, the nurse and the anesthesiologist in the procedure room. Mental Status Examination: alert and oriented. CV Examination: regular rate and rhythm. Prophylactic Antibiotics: The patient does not require prophylactic antibiotics. Prior Anticoagulants: The patient has taken no previous anticoagulant or antiplatelet agents. ASA Grade Assessment: II - A patient with mild systemic disease. After reviewing the risks and benefits, the patient was deemed in satisfactory condition to undergo the procedure. The anesthesia plan was to use monitored anesthesia care (MAC). Immediately prior to administration of medications, the patient was re-assessed for adequacy to receive sedatives. The heart rate, respiratory rate, oxygen saturations, blood pressure, adequacy of pulmonary ventilation, and response to care were monitored throughout the procedure. The physical status of the patient was re-assessed after the procedure. The Colonoscope was introduced through the anus and advanced to the cecum, identified by appendiceal orifice and ileocecal valve. The colonoscopy was performed without difficulty. The patient tolerated the procedure well. The quality of the bowel preparation was good. Findings: The perianal and digital rectal examinations were normal. Multiple medium-mouthed diverticula were found in the sigmoid colon. The exam was otherwise without abnormality. Impression: - Diverticulosis in the sigmoid colon. - The examination was otherwise normal. - No specimens collected. Recommendation: - Discharge patient to home. - Resume previous diet. - Continue present medications. Jhony Santiago MD Jhony Santiago MD 09/14/2018 12:44:21 PM Electronically signed by Jhony Santiago MD Number of Addenda: 0 Note Initiated On: 09/14/2018 10:32 AM Estimated Blood Loss: Estimated blood loss: none.
== END | disposition home or self-care (01) ==
LOC: M OPP 08:48
PROVIDERS: ATTEND Surgery
DX: K57.30 Diverticulosis of large intestine without perforation or abscess without bleeding (principal); K62.5 Hemorrhage of anus and rectum; K92.2 Gastrointestinal hemorrhage, unspecified; D50.9 Iron deficiency anemia, unspecified; Z98.0 Intestinal bypass and anastomosis status; Z87.11 Personal history of peptic ulcer disease

== ENCOUNTER → 2018-10-01 | Outpatient (CLI) | payer MEDICARE ==
[~2018-10-01] MED LIST changes: -LIDOCAINE 2% INJ 100 MG/5 ML SDV (FOR ANES.) As Ordered ONE; -NS 1,000 ML IV ONE; -PROPOFOL 200 MG/20 ML VIAL As Ordered ONE
--- NOTE | 2018-10-01 12:33 | REP ---
CERVICAL SPINE SERIES: Eight views. HISTORY: Cervical radiculopathy. Comparison cervical spine CT imaging September 23, 2012. CT FINDINGS: Lateral views demonstrate that the patient is status post ventral discectomy and cervical fusion plating from C4 through C7. This is unchanged. No malalignment. There is some limitation of flexion extension range of motion. There are degenerative disc spurs at C3-4 and C2-3. Mild osteoarthritis is seen at the articulation between the dens and the anterior arch of C1. There is facet hypertrophy mild in degree in the mid cervical spine as well. Neural foramina appear adequate bilaterally at each level on oblique radiographs. IMPRESSION: Degenerative disc disease at C2-3 and C3-4. Status post fusion plating ventrally C4-C7. Electronically Signed by Samuel Rush MD 10/01/2018 03:35 P
== END ==
LOC: M RAD 10:18
PROVIDERS: ATTEND Family Medicine
DX: M25.78 Osteophyte, vertebrae (principal); Z98.1 Arthrodesis status

== ENCOUNTER → 2019-01-11 | Outpatient (REF) | payer MEDICARE ==
[~2019-01-11] MED LIST changes: +METF-791 PO; -METF500T4 PO; +OMEP1CAP73 PO; -OMEP20CA3 PO; -OMEP40CA2 PO; +OMEP40CA97 PO
[2019-01-11 11:09] LABS: BASO # 0.1 10^3/uL (0.0-0.2); EOS # 0.1 10^3/uL (0.0-0.5); EOS % 1.3 % (0.0-3.0); HEMATOCRIT 37.3 % (36.0-47.0); HEMOGLOBIN 11.6 g/dl (12.0-15.5); LYMPH # 1.2 10^3/uL (1.5-5.0); LYMPH % 16.9 % (24.0-44.0); MEAN CORPUSCULAR HEMOGLOBIN 25.9 pg (27.0-33.0); MEAN CORPUSCULAR HGB CONC 31.1 g/dl (32.0-36.5); MEAN CORPUSCULAR VOLUME 83.3 fl (80.0-96.0); MONO # 0.6 10^3/uL (0.0-0.8); MONO % 8.2 % (0.0-5.0); NEUTROPHILS # 5.2 10^3/uL (1.5-8.5); NEUTROPHILS % 72.3 % (36.0-66.0); PLATELET COUNT, AUTOMATED 400 10^3/uL (150-450); RED BLOOD COUNT 4.48 10^6/uL (4.00-5.40); WHITE BLOOD COUNT 7.2 10^3/uL (4.0-10.0)
[2019-01-11 11:34] LABS: HEMOGLOBIN A1c 7.2 %
[2019-01-11 14:01] LABS: ALBUMIN 3.6 GM/DL (3.2-5.2); BILIRUBIN,TOTAL 0.6 MG/DL (0.2-1.0); CALCIUM LEVEL 8.6 MG/DL (8.8-10.2); CREATININE FOR GFR 0.99 MG/DL (0.55-1.30); GLOMERULAR FILTRATION RATE 58.5 (>39); POTASSIUM SERUM 4.2 MEQ/L (3.5-5.1); TOTAL PROTEIN 6.5 GM/DL (6.4-8.2)
== END ==
LOC: M SFHCPLAZ 08:25
PROVIDERS: ATTEND Family Medicine
DX: I50.32 Chronic diastolic (congestive) heart failure (principal); D50.9 Iron deficiency anemia, unspecified; E11.9 Type 2 diabetes mellitus without complications

== ENCOUNTER → 2019-02-14 | Outpatient (REF) | payer MEDICARE ==
[~2019-02-14] MED LIST changes: -OMEP1CAP73 PO; +OMEP20CA4 PO
[2019-02-14 14:37] LABS: ALBUMIN 3.6 GM/DL (3.2-5.2); BLOOD UREA NITROGEN 14 MG/DL (7-18); CALCIUM LEVEL 8.9 MG/DL (8.8-10.2); CARBON DIOXIDE LEVEL 29 MEQ/L (21-32); CHLORIDE LEVEL 99 MEQ/L (98-107); CREATININE FOR GFR 0.84 MG/DL (0.55-1.30); GLOMERULAR FILTRATION RATE > 60.0 (>39); GLUCOSE, FASTING 177 MG/DL (70-100); NT-PRO BNP 2174 PG/ML (<125); PHOSPHORUS LEVEL 4.1 MG/DL (2.5-4.9); SODIUM LEVEL 139 MEQ/L (136-145)
== END ==
LOC: M SFHCPLAZ 11:52
PROVIDERS: ATTEND Nurse Practitioner Family
DX: I50.32 Chronic diastolic (congestive) heart failure (principal)
CPT/HCPCS: 36415; 80069; 83735; 83880; G0463

== ENCOUNTER → 2019-02-24 | Outpatient (CLI) | payer MEDICARE ==
--- NOTE | 2019-02-24 17:33 | REP ---
MRI cervical spine: 02/24/2019. Indication: Cervical radiculopathy. Comparison: No previous MRI studies are available for direct comparison. Technique: Multiplanar short and long TR sequences of the cervical spine were performed without IV Gadolinium. Findings: The patient is status post C3 - C5 ACDF. There is straightening of the cervical lordosis. No worrisome marrow signal is detected. The visualized cord is normal. The vertebral flow voids are unremarkable with right-sided dominant. C2/C3: There is no focal disc herniation or significant spinal canal / neural foraminal narrowing. The neural foramen are patent. C3/C4: Diffuse disc bulge and bilateral facet arthropathy are present with mild narrowing of the spinal canal. There is severe left and moderate right neural foraminal narrowing. C4/C5: There is no significant spinal canal or neural foraminal narrowing. C5/C6: Uncovertebral and facet proliferation are present with mild narrowing of the spinal canal. There is moderate right greater than left neural foraminal narrowing. C6/C7: Diffuse disc osteophyte complex is present with mild to moderate narrowing of the spinal canal. Severe bilateral neural foraminal narrowing is present. C7/T1: There is a right lateral disc protrusion with severe right neural foraminal narrowing. There is no significant spinal canal or left neural foraminal narrowing. Impression: Multilevel degenerative and postoperative sequelae as described. Please correlate. Findings with radicular level. Electronically Signed by Jeffrey Franklin DO 02/24/2019 05:25 P
== END ==
LOC: M RAD 15:37
PROVIDERS: ATTEND Nurse Practitioner Family
DX: M48.02 Spinal stenosis, cervical region (principal); M50.33 Other cervical disc degeneration, cervicothoracic region; M50.21 Other cervical disc displacement, high cervical region; M46.92 Unspecified inflammatory spondylopathy, cervical region; M25.78 Osteophyte, vertebrae; M54.12 Radiculopathy, cervical region

== ENCOUNTER → 2019-03-25 | Outpatient (CLI) | payer MEDICARE ==
[~2019-03-25] MED LIST changes: +OMEP-172 PO; -OMEP20CA4 PO
--- NOTE | 2019-03-25 12:05 | REPMRS ---
Patient History The patient states she has not had a clinical breast exam in over a year. Family history of breast cancer at age 50 or over in paternal grandmother, breast cancer at age 49 in daughter. 3D TOMOSYNTHESIS WAS PERFORMED. [facility] for [facility] cancer [facility] 8.1 %. Digital Woman Screen Mammo: March 25, 2019 - Exam #: [id number] Bilateral CC and MLO view(s) were taken. Technologist: Bessie Mccrary, Technologist Prior study comparison: December 29, 2017, bilateral digital woman screen mammo performed at [facility], [place]. August 29, 2016, digital woman screen mammo performed at [facility], [place]. FINDINGS: There are scattered fibroglandular densities. There has been no change in the appearance of the mammogram from the prior studies. There is a mild amount of residual fibroglandular tissue which is fairly symmetric. There is no interval development of dominant mass, architectural distortion, or clustered microcalcification suggestive of malignancy. Assessment: BI-RADS/ACR category 1 mammogram. Negative Mammogram. Recommendation Routine screening mammogram in 1 year (for women over age 40). This mammogram was interpreted with the aid of an FDA-approved computer-aided dectection system. Electronically Signed By: Jose Miguel Worrell MD 03/25/19 1302
== END ==
LOC: M WHC 10:23
PROVIDERS: ATTEND Family Medicine
DX: Z12.31 Encounter for screening mammogram for malignant neoplasm of breast (principal); Z80.3 Family history of malignant neoplasm of breast

== ENCOUNTER → 2019-04-22 | Outpatient (CLI) | payer MEDICARE ==
[~2019-04-22] MED LIST changes: -OMEP-172 PO; +OMEP1CAP73 PO
--- NOTE | 2019-05-05 04:26 | ECWPNPC ---
PATIENT NAME: JORGE SEQUEIRA : 1945 GENDER: FEMALE VISIT DATE: 04/22/2019 DISCHARGE DATE: 04/22/19 1052 VISIT LOCKED DATE TIME: PHYSICIAN: TAYLOR DE LA CRUZ MD PHYSICIAN PAGER NO: [phone] RESOURCE: TAYLOR DE LA CRUZ MD REASON FOR APPOINTMENT 1. POSSIBLE SHREYA HISTORY OF PRESENT ILLNESS HISTORY OF PRESENT ILLNESS: PAIN THE PATIENT DESCRIBES THE PAIN... 74 YEAR OLD FEMALE PATIENT WITH A HISTORY OF NECK AND ARM PAIN. THE PATIENT DESCRIBES THE PAIN ACHING, BURNING, STIFF, DAILY, AND CONTINUOUS WITH A PAIN SCORE 6-9/10 DEPENDING ON PHYSICAL ACTIVITY. THE PATIENT STATES HER PAIN BEGINS IN HER NECK AND RADIATES DOWN MAINLY HER LEFT ARM. THE PATIENT SAYS SHE HAS A HISTORY OF NECK FUSION SURGERY DONE IN 1999, BUT HER NECK PAIN STILL PERSISTS. THE PATIENT SAYS HER PAIN IS AFFECTING HER ABILITY TO PERFORM HER DAILY ACTIVITIES SUCH MOVING HER ARM, HOLDING THINGS, AND CLEANING HER HOME. THE PATIENT STATES HER LEFT ARM PAIN BEGAN AROUND ONE YEAR AGO, WHICH HAS TRIED PHYSICAL THERAPY AND MEDICATION MANAGEMENT, BUT HER PAIN CONTINUES TO PERSIST. PATIENT DENIES UNEXPLAINABLE WEIGHT LOSS, FEVER, CHILLS, NEW CHANGES ON HER URINARY OR BOWEL CONTROL. FALL RISK SCREENING: SCREENING :NO FALLS REPORTED IN THE LAST YEAR CURRENT MEDICATIONS TAKING I CAPS _ CAPSULE 2 CAPSULE PO ONCE A DAY TAKING TRAVATAN Z 0.004 % SOLUTION 1 DROP INTO BOTH EYES OPHTHALMIC ONCE A DAY TAKING SIMBRINZA 1-0.2 % SUSPENSION 1 DROP INTO BOTH EYES OPHTHALMIC TWICE DAILY TAKING CARPAL TUNNEL WRIST STABILIZER - MISCELLANEOUS DIRECTED LEFT WRIST DAILY- G56.02 TAKING BLOOD GLUCOSE TEST - STRIP DIRECTED SUBCUTANEOUSLY TWICE DAILY DX: E11.8 TAKING COMPRESSION STOCKINGS 15-20 MMHG DIRECTED I50.32 DAILY TAKING APIXABAN 5 MG TABLET 1 TAB ORALLY BID TAKING ATENOLOL 50 MG TABLET 1 1/2 TABLET ORALLY TWICE A DAY TAKING ATORVASTATIN CALCIUM 80 MG TABLET 1 TABLET ORALLY ONCE A DAY TAKING LOSARTAN POTASSIUM 50 MG TABLET 1 TABLET ORALLY EVERY MORNING TAKING NITROSTAT 0.4 MG TABLET SUBLINGUAL 1 TABLET UNDER THE TONGUE SUBLINGUAL EVERY 5 MINUTES X3 NEEDED FOR CHEST PAIN TAKING ASPIRIN 81 81 MG TABLET CHEWABLE 1 TABLET ORALLY ONCE A DAY TAKING SLOW FE 142 (45 FE) MG TABLET EXTENDED RELEASE 1 TABLET ORALLY DAILY TAKING CYANOCOBALAMIN 250 MCG TABLET 1 TABLET ORALLY ONCE A DAY TAKING GLUCOPHAGE XR 500 MG TABLET EXTENDED RELEASE 24 HOUR 2 TABLETS ORALLY TWICE A DAY TAKING GLUCOSE STRIP (VERIO IQ) DIRECTED BID TAKING ONETOUCH VERIO FLEX SYSTEM W/DEVICE KIT DIRECTED _ BID TAKING KLOR-CON 10 10 MEQ TABLET EXTENDED RELEASE 2 TABS ORALLY TWICE A DAY TAKING FUROSEMIDE 40 MG TABLET 2 TABS ORALLY BID NOT-TAKING SUCRALFATE 1 GM/10ML SUSPENSION 10 ML ON AN EMPTY STOMACH ORALLY DAILY NOT-TAKING FLONASE 50 MCG/ACT SUSPENSION 2 PUFF IN EACH NOSTRIL NASALLY EVERY MORNING NOT-TAKING CALCIUM 600 + D 600-400 MG-UNIT TABLET 1 TABLET ORALLY TWICE A DAY NOT-TAKING VITAMIN D 2000 UNIT TABLET 1 TABLET ORALLY ONCE A DAY NOT-TAKING PRILOSEC 20 MG CAPSULE DELAYED RELEASE 2 CAPSULES ORALLY ONCE A DAY MEDICATION LIST REVIEWED AND RECONCILED WITH THE PATIENT PAST MEDICAL HISTORY OSTEOPENIA RHEUMATOID ARTHRITIS EPILEPSY-LAST SEIZURE EPISODE 1994, PATIENT DISCONTINUED DEPAKOTE ON HER OWN JUNE 2009 GERD/GERD-REFLUX ESOPHAGITIS, S METAPLASIA BY 04/2002 EGD-[place] HYPERTENSION-06/2017 TTE-MODERATE MR/TR, GRADE 1 DIASTOLIC DYSFUNCTION, MILD PULMONARY HYPERTENSION-ANTECOL HYPERLIPIDEMIA 2B SINGLE-VESSEL CAD STATUS POST LAD STENT FEBRUARY 2007-LAUREN06/2017 NST MILD INCREASED RISK, WITHOUT REVERSIBILITY, LVEF 70%-BRUNNER T2DM NID ASTHMA, MILD INTERMITTENT GLAUCOMA, OU PRIMARY OPEN-ANGLE VITAMIN D DEFICIENCY SVT, PAROXYSMAL ALLERGIC RHINITIS-09/2011 NEGATIVE ZONE 1 ALLERGY PANEL ATRIAL FIBRILLATION, CHRONIC, NEWLY DETECTED 06/12/17 VISHAL, MILD-06/2017 HST MARY ANNE 9 C SAO2 TO 85% ANEMIA 2 FE/B12 DEFICIENCY-09/2018 COLON/EGD-NORMAL BILROTH IIGJ, SIGMOID LOSIS-ANNA MARIE CERVICAL SPONDYLOSIS-SP C4-7 FUSION, MILD FJA , S CHANGE C F/E BY 09/2018 XRAY ALLERGIES CYMBALTA: INCREASED BP - SIDE EFFECTS SURGICAL HISTORY LAMINECTOMY 07/29/1999 TONSILLECTOMY APPENDECTOMY PARTIAL HYSTERECTOMY,VAGINAL ULCER/STOMACH SURGERY-X 2 RIGHT EYE SURGERY-EXPRESS SHUNT-DR. BANKS-KARIS @ [facility] 07/18/15 LASER SURGERY- LEFT EYE- TRAMAINE- DR. BANKS @ [facility] 08/15/15 EXPRESS SHUNT- LEFT EYE- DR. JOCELYN DYSON-[facility] 10/09/15 LEFT CATARACT 05/28/2016 LASER SURGERY BILATERAL EYES 01/29 &03/01 FAMILY HISTORY FATHER: 55 YRS, 2 TO NC/DM2 MOTHER: 85 YRS, 2 TO [place], DM2 DAUGHTER DIAGNOSED C BREAST CANCER AT 54 YO. SOCIAL HISTORY GENERAL: TOBACCO USE ARE YOU A:NONSMOKER HIV / HEP-C SCREENING HIV TEST OFFERED TO PATIENT:NO N/A HEP-C TEST OFFERED TO PATIENT:YES DATE OFFERED:06/16/2016 TEST ACCEPTED:NO REASON:PATIENT DECLINED HOUSING: OWNS HOME. EDUCATION LEVEL OF EDUCATION:NOT FINISHED HIGH SCHOOL GED DIET: NO CONCENTRATED SWEETS.. LANGUAGE LANGUAGES SPOKEN:[place] CITIZEN DOMESTIC VIOLENCE DO YOU FEEL SAFE IN YOUR ENVIRONMENT?YES NEW PATIENT PAIN DIARY PATIENT DESCRIBES PAIN :ACHING, BURNING FROM 0-10, WHAT LEVEL IS YOUR PAIN TODAY?8 NAME OF PERSON DRIVING YOU HOME IS THERE A CHANCE YOU COULD BE ?NO HAVE YOU BEEN SICK IN THE LAST WEEK (COLD, COUGH, FEVER, FLU, ETC)NO DO YOU TAKE ANY BLOOD THINNERS?YES LAST DOSE ELIQUIS DO YOU HAVE ANY RASHES OR OPEN SORES?NO ANY CHANGE IN BOWEL OR BLADDER CONTROL?NO ARE YOU ALLERGIC TO SHELLFISH OR IV DYE?NO ARE YOU DIABETIC?NO DO YOU HAVE A PACEMAKER OR DEFIBRILLATOR?NO ANY NEW PROBLEMS WITH MEDICINES OR NEW ALLERGIESNO ANY NEW PATTERNS OF PAIN OR NUMBNESS?YES ANY CHANGE IN YOUR MEDICAL CONDITION?NO HAVE YOU FALLEN IN THE LAST 6 MONTHS?NO DO YOU USE ANY TYPE OF TOBACCO (SMOKE, SMOKELESS, CHEW, ETC.)NO ARE YOU ABUSED, NEGLECTED, OR IN AN UNSAFE ENVIRONMENT?NO DO YOU HAVE THOUGHTS OF HURTING YOURSELF OR SOMEONE ELSE?NO DO YOU HAVE ANY OTHER QUESTIONS OR CONCERNS?NO RECREATIONAL DRUG USE DRUG USE?NO LEARNING BARRIERS / SPECIAL NEEDS CHANGE FROM LAST VISIT?NO BARRIERS TO LEARNING?NO HEARING IMPAIRED?NO VISION IMPAIRED?YES COGNITIVELY IMPAIRED?NO :CORRECTIVE LENSES READINESS TO LEARN?YES LEARNING PREFERENCES?NO LEARNING CAPABILITIES PRESENT?YES EMOTIONAL BARRIERS?NO SPECIAL DEVICES?NO MECHANICAL SHOP LABORER NEEDED?NO PAIN CLINIC PFS, CLERGY, PUBLIC HEALTH REFERRALS WAS THE PROVIDER NOTIFIED OF ANY PERTINENT INFO?YES HAS THE PATIENT BEEN EDUCATED REGARDING HIS/HER PLAN OF CARE?YES HAS THE PATIENT BEEN EDUCATED REGARDING PAIN, THE RISK FOR PAIN, THE IMPORTANCE OF EFFECTIVE PAIN MANAGEMENT, AND THE PAIN ASSESSMENT PROCESS?YES LATEX QUESTIONNAIRE LATEX ALLERGY : HAVE YOU EVER DEVELOPED ANY TYPE OF REACTION AFTER HANDLING LATEX PRODUCTS SUCH RUBBER GLOVES, CONDOMS, DIAPHRAGMS, BALLOONS, SOCKS, OR UNDERWEAR?NO LATEX ALLERGY : HAVE YOU EVER DEVELOPED ANY TYPE OF REACTION DURING OR AFTER DENTAL APPOINTMENT, VAGINAL/RECTAL EXAMINATION, SURGICAL PROCEDURE, OR ANY OTHER EXPOSURE?NO LATEX RISK : HAVE YOU EVER HAD ANY DIFFICULTY BREATHING OR HIVES AFTER EATING OR HANDLING ANY FRUITS, OR VEGETABLES; SUCH KIWI, BANANAS, STONE FRUITS, OR CHESTNUTSNO LATEX RISK : DO YOU HAVE A PREVIOUS PERSONAL HISTORY OF MORE THAN NINE SURGERIES, SPINA BIFIDA, OR REPEATED CATHERIZATIONS? NO LATEX RISK : ARE YOU FREQUENTLY EXPOSED TO LATEX PRODUCTS IN YOUR OCCUPATION?NO DATE ASKED : 04/22/2019 CAFFEINE CAFFEINE USE?YES HOW OFTEN AND HOW MUCH? COFFEE ADVANCE DIRECTIVE ADVANCE DIRECTIVE DISCUSSED WITH PATIENT:YES HCP LUKAS BROCK - DAUGHTER, PT STATES THAT SHE ALSO HAS A DNR, ON FILE IN [id number] ORTHODOXY MARITAL STATUS: . ALCOHOL SCREENING DID YOU HAVE A DRINK CONTAINING ALCOHOL IN THE PAST YEAR?NO POINTS0 INTERPRETATIONNEGATIVE OCCUPATION: RETIRED. SEXUAL HX HAD SEX IN THE LAST 12 MONTHS (VAGINAL, ORAL, OR ANAL)?YES WITHMEN ONLY USE PROTECTION?NO HAVE YOU EVER HAD AN STD?NO HCP IS SERGIO BROCK, DAUGHTER, LIVES IN [place]-01/2014 REVIEWED WITH PATIENT 04/22/2019 DS. HOSPITALIZATION/MAJOR DIAGNOSTIC PROCEDURE ATYPICAL CHEST PAIN-NEGATIVE SERIAL CARDIAC ENZYMES 06/2011 DYSPNEA/DIARRHEA/DYSPEPSIA C BRBPR C ROQUE HGB 8.6 SP 1U PRBC TX, DOA WBC 12.8, 9.9 ON DOD, CT AP C TRANSERVE COLONIC THICKENING "CW COLITIS" (NO GI PANEL DONE NOR ABX GIVEN), ACUTE CHF/AF C RVR-DIURESED 4L, STABLE TTE 05/27- REVIEW OF SYSTEMS REVIEWED BY: PROVIDER: TAYLOR DE LA CRUZ MD . CONSTITUTIONAL: ANY CHANGE IN YOUR MEDICAL CONDITION? NO . CHILLS NO . FEVER NO . INFECTION: DO YOU HAVE NEW INFECTIONS? NO . DO YOU HAVE HISTORY OF MRSA? NO . MUSCULOSKELETAL: ANY NEW PATTERNS OF PAIN OR NUMBNESS? NO . GASTROENTEROLOGY: ANY NEW CHANGE IN BOWEL CONTROL? NO . GENITOURINARY: ANY NEW CHANGE IN BLADDER CONTROL? NO . IS THERE A CHANCE YOU COULD BE ? NO . HEMATOLOGY/LYMPH: DO YOU TAKE ANY BLOOD THINNERS? (FOR EXAMPLE- COUMADIN, PLAVIX, AGGRENOX, PLATEL, PRADAXA, OR XARELTO) ELIQUIS . WHEN WAS YOUR LAST DOSE? DATE: TIME: . NEUROLOGY: HAVE YOU FALLEN IN THE PAST 12 MONTHS? NO . ANY NEW EXTREMITY NUMBNESS OR WEAKNESS? YES, PT STATES THAT LEFT WRIST AND LEFT ELBOW, LEFT ARM, AND LEFT NECK WHEATLEY, ACHES, FEELS HEAVY, WEAKNESS . CARDIOLOGY: DO YOU HAVE A PACEMAKER OR DEFIBRILLATOR? NO . RESPIRATORY: HAVE YOU BEEN SICK IN THE PAST WEEK? NO . FEVER NO . FLU LIKE SYMPTOMS? NO . COUGH NO . INTEGUMENTARY: DO YOU HAVE ANY RASHES OR OPEN SORES? NO . ALLERGIC/IMMUNO: ARE YOU ALLERGIC TO IV DYE? NO . ANY NEW ALLERGIES? NO . PSYCHIATRIC: DO YOU HAVE THOUGHTS OF HURTING YOURSELF OR SOMEONE ELSE? NO . ARE YOU ABUSED, NEGLECTED, OR IN AN UNSAFE ENVIRONMENT? NO . ENDOCRINOLOGY: ARE YOU DIABETIC? YES, FSBS 144 04/22/19 . OTHER: DO YOU NEED ANY PRESCRIPTIONS? NO . IF YES, PLEASE LIST: ____ . ANY NEW PROBLEMS WITH YOUR MEDICATIONS? NO . WHEN DID YOU LAST EAT? ____ . WHEN DID YOU LAST DRINK? ____ . WHAT DID YOU LAST DRINK? ____ . NAME OF PERSON DRIVING YOU HOME? ____ . DO YOU HAVE ANY OTHER QUESTIONS OR CONCERNS NO . VITAL SIGNS WT 133.2 LBS, HT 60 IN, BMI 26.01 INDEX, BP 140/63 MM HG, HR 58 /MIN, RR 16 /MIN, TEMP 97.5 F, OXYGEN SAT % 98, SAFE IN ENV? (Y/N) Y, REVIEWED BY: DS. EXAMINATION GENERAL EXAMINATION: PATIENT IS ALERT O X 3 AND COOPERATIVE. LUNGS CLEAR, TO AUSCULTATION. HEART: NO MURMURS OR GALLOPS; FACIAL CRANIAL NERVES ARE GROSSLY NORMAL. GOOD SYMMETRY OF FACIAL MUSCLE MOVEMENT. NORMAL VISUAL CARTER. PATIENT WALKS WITH NORMAL GAIT. PATIENT CAN ABDUCT UPPER EXTREMITIES, BUT WITH DIFFICULTY OF THE LEFT ARM. LEFT HAND CLOTHER IN AND STRENGTH OF LEFT HAND IS REDUCED COMPARED WITH THE RIGHT SIDE. PAIN INCREASES WITH EXTENSION AND LATERAL ROTATION OF THE NECK, ON BOTH SIDES, WITH PAIN GOING DOWN BOTH ARMS. MRI OF THE CERVICAL SPINE DONE ON 02/24/2019 SHOWS BULGING DISCS AT MULTIPLE LEVELS. X-RAY OF THE CERVICAL SPINE DONE ON 10/01/2018 SHOWS A FUSION AT C4-C6 LEVELS. ASSESSMENTS CERVICAL DISC DISORDER WITH RADICULOPATHY, UNSPECIFIED CERVICAL REGION - M50.10 (PRIMARY) TREATMENT CERVICAL DISC DISORDER WITH RADICULOPATHY, UNSPECIFIED CERVICAL REGION CLINICAL NOTES: WE DISCUSSED SEVERAL ISSUES WITH MS. SEQUEIRA'S PAIN MANAGEMENT CASE. DUE TO THE CERVICAL RADICULOPATHY, I WOULD LIKE TO MOVE FORWARD WITH A C7-T1 CERVICAL EPIDURAL STEROID INJECTION. WE DISCUSSED THE BENEFITS, RISKS, AND ALTERNATIVES OF THE INJECTION AND THE PATIENT WOULD LIKE TO PROCEED. I AM LOOKING FOR LONG LASTING PAIN RELIEF FROM THIS INJECTION FOR THE PATIENT. THE PATIENT WILL FOLLOW UP IN SEVERAL WEEKS AFTER HER INJECTION. I FEEL THE PATIENT IS A GOOD CANDIDATE FOR A CERVICAL EPIDURAL, BUT I WOULD LIKE TO FIRST REQUEST FOR A MEDICATION CLEARANCE FROM DR. CALVIN, THE PATIENT'S PRIMARY CARE PROVIDER, FOR THE PATIENT TO STOP ELIQUIS, WHICH SHE IS TAKING DUE TO AFIB. AFTER CLEARANCE IS RECEIVED, WE WILL REQUEST AUTHORIZATION FOR THE C7-T1 CERVICAL EPIDURAL STEROID INJECTION. INSTRUCTIONS WERE GIVEN, QUESTIONS WERE ANSWERED, PATIENT REPORTS UNDERSTANDING AND AGREES WITH THE PLAN. I, NIDHI MONTIEL, DOCUMENTED THE ABOVE INFORMATION ACTING A SCRIBE FOR DR. DE LA CRUZ. I HAVE REVIEWED THE ABOVE DOCUMENT, WRITTEN BY NIDHI SALDAÑA AND I VERIFY THAT IT IS ACCURATE.DEAR JORGE ESTRADA, SENIOR ESCROW OFFICER:THANK YOU FOR YOUR KIND REFERRAL OF JORGE SEQUEIRA. IF YOU WANT TO DISCUSS HER CASE WITH ME PLEASE CALL ME AT THE PAIN CENTER AT [phone]. SINCERELY,TAYLOR DE LA CRUZ, [facility] . OTHERS NOTES: REVIEWED AND DISCUSSED PROCEDURE AND PLAN OF CARE WITH PATIENT. CONDUCTED PRE-PROCEDURE TEACHING FOR EPIDURAL WITH PATIENT, PT ACKNOWLEDGED UNDERSTANDING. PREVENTIVE MEDICINE PAIN CLINIC TEACHING: THE PATIENT HAS BEEN EDUCATED REGARDING PAIN, THE RISK FOR PAIN, THE IMPORTANCE OF EFFECTIVE PAIN MANAGEMENT, AND THE PAIN ASSESSMENT PROCESS. : REVIEWED AND DISCUSSED PLAN OF CARE AND PRE-PROCEDURE TEACHING, REVIEWED EPIDURAL PROCEDURE WITH PT. PT ACKNOWLEDGED UNDERSTANDING. PROCEDURE CODES [id number] ESTABILISHED PATIENT [facility] CHARGE [id number] CURRENT MEDS W/DOSAGES DOCUMENTED [id number] PAIN ASSESS POS TOOL F/U PLAN DOC DISPOSITION & COMMUNICATION FOLLOW UP REASON: RQSTING CLEARANCE TO HOLD MEDS FROM PCP, THEN ONCE RECEIVED RQST AUTH FOR SHREYA ELECTRONICALLY SIGNED BY TAYLOR DE LA CRUZ MD, MD ON 05/04/2019 AT 02:45 PM EST DISCLAIMER : THIS IS A VISIT SUMMARY EXTRACTED FROM THE [employer] CHART. IT IS NOT A COPY OF THE [employer] PROGRESS NOTE. ROSALEED
== END ==
LOC: M PAIN 09:30
PROVIDERS: ATTEND Anesthesiology
DX: M50.10 Cervical disc disorder with radiculopathy, unspecified cervical region (principal); I10 Essential (primary) hypertension; E78.5 Hyperlipidemia, unspecified; E11.9 Type 2 diabetes mellitus without complications; J45.20 Mild intermittent asthma, uncomplicated; G47.33 Obstructive sleep apnea (adult) (pediatric); E50.9 Vitamin A deficiency, unspecified; Z88.8 Allergy status to other drugs, medicaments and biological substances; Z79.82 Long term (current) use of aspirin; Z79.84 Long term (current) use of oral hypoglycemic drugs; Z79.899 Other long term (current) drug therapy

== ENCOUNTER → 2019-06-08 | Outpatient (CLI) | payer MEDICARE ==
[~2019-06-08] MED LIST changes: -SUCR10SS PO; +SUCR1ORA2 PO
[2019-06-08 10:10] LABS: BASO # 0.1 10^3/uL (0.0-0.2); BASO % 0.6 % (0.0-1.0); EOS # 0.1 10^3/uL (0.0-0.5); EOS % 0.8 % (0.0-3.0); HEMATOCRIT 36.8 % (36.0-47.0); HEMOGLOBIN 11.1 g/dl (12.0-15.5); LYMPH # 1.1 10^3/uL (1.5-5.0); LYMPH % 14.5 % (24.0-44.0); MEAN CORPUSCULAR HEMOGLOBIN 24.3 pg (27.0-33.0); MEAN CORPUSCULAR HGB CONC 30.2 g/dl (32.0-36.5); MEAN CORPUSCULAR VOLUME 80.5 fl (80.0-96.0); MONO # 0.6 10^3/uL (0.0-0.8); NEUTROPHILS # 5.9 10^3/uL (1.5-8.5); NEUTROPHILS % 75.7 % (36.0-66.0); PLATELET COUNT, AUTOMATED 391 10^3/uL (150-450); RED BLOOD COUNT 4.57 10^6/uL (4.00-5.40); WHITE BLOOD COUNT 7.7 10^3/uL (4.0-10.0)
[2019-06-08 10:27] LABS: HEMOGLOBIN A1c 8.6 %
[2019-06-08 10:50] LABS: ALBUMIN 3.7 GM/DL (3.2-5.2); ALT/SGPT 24 U/L (12-78); BILIRUBIN,TOTAL 0.7 MG/DL (0.2-1.0); BLOOD UREA NITROGEN 10 MG/DL (7-18); CALCIUM LEVEL 9.3 MG/DL (8.8-10.2); CARBON DIOXIDE LEVEL 29 MEQ/L (21-32); CHLORIDE LEVEL 104 MEQ/L (98-107); CREATININE FOR GFR 0.82 MG/DL (0.55-1.30); GLOMERULAR FILTRATION RATE > 60.0 (>39); GLUCOSE, FASTING 178 MG/DL (70-100); NT-PRO BNP 2508 PG/ML (<125); POTASSIUM SERUM 4.6 MEQ/L (3.5-5.1); SODIUM LEVEL 139 MEQ/L (136-145); TOTAL PROTEIN 6.6 GM/DL (6.4-8.2); VITAMIN B12 LEVEL > 2000 PG/ML (247-911)
== END ==
LOC: M PLALAB 08:39
PROVIDERS: ATTEND Family Medicine
DX: I50.32 Chronic diastolic (congestive) heart failure (principal); D50.9 Iron deficiency anemia, unspecified; Z79.84 Long term (current) use of oral hypoglycemic drugs

== ENCOUNTER → 2019-06-13 | Outpatient (CLI) | payer MEDICARE ==
[~2019-06-13] MED LIST changes: +ISOVUE-M 300 61% 15ML VIAL (Q9967) As Ordered ONE; +LIDOCAINE 1% SDV INJ 30 ML VIAL As Ordered ONE; +methylPREDNISolone SUSP 40 MG/ML (DEPO-medrol) VIAL (J1030) As Ordered ONE
--- NOTE | 2019-06-13 11:45 | REP ---
Cervicothoracic spine: Three views. History: Cervical epidural steroid injection for pain. 18 seconds of fluoroscopy time is reported. Findings: A sequence of three last image hold fluoroscopically obtained spot radiographs of the cervicothoracic junction document needle position and contrast injection associated with injection. Electronically Signed by Samuel Rush MD 06/13/2019 11:36 A
--- NOTE | 2019-06-18 05:14 | ECWPNPC ---
PATIENT NAME: JORGE SEQUEIRA : 1945 GENDER: FEMALE VISIT DATE: 06/13/2019 DISCHARGE DATE: 06/13/19 1033 VISIT LOCKED DATE TIME: PHYSICIAN: TAYLOR DE LA CRUZ MD PHYSICIAN PAGER NO: [phone] RESOURCE: TAYLOR DE LA CRUZ MD REASON FOR APPOINTMENT 1. CERVICAL EPIDURAL STEROID INJ C7-T1 HISTORY OF PRESENT ILLNESS HISTORY OF PRESENT ILLNESS: PAIN THE PATIENT DESCRIBES THE PAIN... FALL RISK SCREENING: SCREENING :NO FALLS REPORTED IN THE LAST YEAR CURRENT MEDICATIONS TAKING I CAPS _ CAPSULE 2 CAPSULE PO ONCE A DAY, NOTES: 06/12/2019 190 TAKING TRAVATAN Z 0.004 % SOLUTION 1 DROP INTO BOTH EYES OPHTHALMIC ONCE A DAY, NOTES: 06/12/2019 190 TAKING SIMBRINZA 1-0.2 % SUSPENSION 1 DROP INTO BOTH EYES OPHTHALMIC TWICE DAILY, NOTES: 06/13/2019 06 TAKING CARPAL TUNNEL WRIST STABILIZER - MISCELLANEOUS DIRECTED LEFT WRIST DAILY- G56.02 TAKING BLOOD GLUCOSE TEST - STRIP DIRECTED SUBCUTANEOUSLY TWICE DAILY DX: E11.8 TAKING COMPRESSION STOCKINGS 15-20 MMHG DIRECTED I50.32 DAILY TAKING ATORVASTATIN CALCIUM 80 MG TABLET 1 TABLET ORALLY ONCE A DAY, NOTES: 06/13/2019 06 TAKING LOSARTAN POTASSIUM 50 MG TABLET 1 TABLET ORALLY EVERY MORNING, NOTES: 06/12/2019 190 TAKING NITROSTAT 0.4 MG TABLET SUBLINGUAL 1 TABLET UNDER THE TONGUE SUBLINGUAL EVERY 5 MINUTES X3 NEEDED FOR CHEST PAIN, NOTES: PRN TAKING ASPIRIN 81 81 MG TABLET CHEWABLE 1 TABLET ORALLY ONCE A DAY, NOTES: 06/13/2019 06 TAKING SLOW FE 142 (45 FE) MG TABLET EXTENDED RELEASE 1 TABLET ORALLY DAILY, NOTES: 06/13/2019 06 TAKING CYANOCOBALAMIN 250 MCG TABLET 1 TABLET ORALLY ONCE A DAY, NOTES: 06/13/2019 26083 TAKING GLUCOPHAGE XR 500 MG TABLET EXTENDED RELEASE 24 HOUR 2 TABLETS ORALLY TWICE A DAY, NOTES: 06/12/2019 1900 TAKING GLUCOSE STRIP (VERIO IQ) DIRECTED BID TAKING Launchups VERIO FLEX SYSTEM W/DEVICE KIT DIRECTED _ BID TAKING KLOR-CON 10 10 MEQ TABLET EXTENDED RELEASE 2 TABS ORALLY TWICE A DAY, NOTES: 06/13/2019 06 TAKING FUROSEMIDE 40 MG TABLET 2 TABS ORALLY BID, NOTES: 06/13/2019 0600 TAKING ATENOLOL 50 MG TABLET 1 1/2 TABLET ORALLY TWICE A DAY, NOTES: 06/13/2019 0600 TAKING APIXABAN 5 MG TABLET 1 TAB ORALLY BID, NOTES: PAOLA 3DAYS AGO TAKING PRILOSEC 20 MG CAPSULE DELAYED RELEASE 2 CAPSULES ORALLY ONCE A DAY, NOTES: 06/13/2019 0600 NOT-TAKING OMEPRAZOLE 20 MG CAPSULE DELAYED RELEASE TAKE TWO CAPSULES BY MOUTH EVERY DAY NOT-TAKING SUCRALFATE 1 GM/10ML SUSPENSION 10 ML ON AN EMPTY STOMACH ORALLY DAILY NOT-TAKING FLONASE 50 MCG/ACT SUSPENSION 2 PUFF IN EACH NOSTRIL NASALLY EVERY MORNING NOT-TAKING CALCIUM 600 + D 600-400 MG-UNIT TABLET 1 TABLET ORALLY TWICE A DAY NOT-TAKING VITAMIN D 2000 UNIT TABLET 1 TABLET ORALLY ONCE A DAY MEDICATION LIST REVIEWED AND RECONCILED WITH THE PATIENT PAST MEDICAL HISTORY OSTEOPENIA RHEUMATOID ARTHRITIS EPILEPSY-LAST SEIZURE EPISODE 1994, PATIENT DISCONTINUED DEPAKOTE ON HER OWN JUNE 2009 GERD/GERD-REFLUX ESOPHAGITIS, S METAPLASIA BY 04/2002 EGD-LAFAYETTE HYPERTENSION-06/2017 TTE-MODERATE MR/TR, GRADE 1 DIASTOLIC DYSFUNCTION, MILD PULMONARY HYPERTENSION-ANTECOL HYPERLIPIDEMIA 2B SINGLE-VESSEL CAD STATUS POST LAD STENT FEBRUARY 2007-LAUREN06/2017 NST MILD INCREASED RISK, WITHOUT REVERSIBILITY, LVEF 70%-BRUNNER T2DM NID ASTHMA, MILD INTERMITTENT GLAUCOMA, OU PRIMARY OPEN-ANGLE VITAMIN D DEFICIENCY SVT, PAROXYSMAL ALLERGIC RHINITIS-09/2011 NEGATIVE ZONE 1 ALLERGY PANEL ATRIAL FIBRILLATION, CHRONIC, NEWLY DETECTED 06/12/17 VISHAL, MILD-06/2017 HST MARY ANNE 9 C SAO2 TO 85% ANEMIA 2 FE/B12 DEFICIENCY-09/2018 COLON/EGD-NORMAL BILROTH IIGJ, SIGMOID LOSIS-ANNA MARIE CERVICAL SPONDYLOSIS-SP C4-7 FUSION, MILD FJA , S CHANGE C F/E BY 09/2018 XRAY CHF- 05/27/18 ALLERGIES CYMBALTA: INCREASED BP - SIDE EFFECTS SURGICAL HISTORY LAMINECTOMY 07/29/1999 TONSILLECTOMY APPENDECTOMY PARTIAL HYSTERECTOMY,VAGINAL ULCER/STOMACH SURGERY-X 2 RIGHT EYE SURGERY-EXPRESS SHUNT-DR. BANKS-KARIS @ [facility] 07/18/15 LASER SURGERY- LEFT EYE- TRAMAINE- DR. BANKS @ [facility] 08/15/15 EXPRESS SHUNT- LEFT EYE- DR. JOCELYN DYSON[facility] 10/09/15 LEFT CATARACT 05/28/2016 LASER SURGERY BILATERAL EYES 01/29 &03/01 FAMILY HISTORY FATHER: 55 YRS, 2 TO [place]/DM2 MOTHER: 85 YRS, 2 TO [place], DM2 DAUGHTER DIAGNOSED C BREAST CANCER AT 54 YO. SOCIAL HISTORY GENERAL: TOBACCO USE ARE YOU A:NONSMOKER HIV / HEP-C SCREENING HIV TEST OFFERED TO PATIENT:NO N/A HEP-C TEST OFFERED TO PATIENT:YES DATE OFFERED:06/16/2016 TEST ACCEPTED:NO REASON:PATIENT DECLINED HOUSING: OWNS HOME. EDUCATION LEVEL OF EDUCATION:NOT FINISHED HIGH SCHOOL GED DIET: NO CONCENTRATED SWEETS.. LANGUAGE LANGUAGES SPOKEN:ITALIAN DOMESTIC VIOLENCE DO YOU FEEL SAFE IN YOUR ENVIRONMENT?YES NEW PATIENT PAIN DIARY PATIENT DESCRIBES PAIN :ACHING, BURNING FROM 0-10, WHAT LEVEL IS YOUR PAIN TODAY?8 NAME OF PERSON DRIVING YOU HOME IS THERE A CHANCE YOU COULD BE ?NO HAVE YOU BEEN SICK IN THE LAST WEEK (COLD, COUGH, FEVER, FLU, ETC)NO DO YOU TAKE ANY BLOOD THINNERS?YES LAST DOSE ELIQUIS DO YOU HAVE ANY RASHES OR OPEN SORES?NO ANY CHANGE IN BOWEL OR BLADDER CONTROL?NO ARE YOU ALLERGIC TO SHELLFISH OR IV DYE?NO ARE YOU DIABETIC?NO DO YOU HAVE A PACEMAKER OR DEFIBRILLATOR?NO ANY NEW PROBLEMS WITH MEDICINES OR NEW ALLERGIESNO ANY NEW PATTERNS OF PAIN OR NUMBNESS?YES ANY CHANGE IN YOUR MEDICAL CONDITION?NO HAVE YOU FALLEN IN THE LAST 6 MONTHS?NO DO YOU USE ANY TYPE OF TOBACCO (SMOKE, SMOKELESS, CHEW, ETC.)NO ARE YOU ABUSED, NEGLECTED, OR IN AN UNSAFE ENVIRONMENT?NO DO YOU HAVE THOUGHTS OF HURTING YOURSELF OR SOMEONE ELSE?NO DO YOU HAVE ANY OTHER QUESTIONS OR CONCERNS?NO RECREATIONAL DRUG USE DRUG USE?NO LEARNING BARRIERS / SPECIAL NEEDS CHANGE FROM LAST VISIT?NO BARRIERS TO LEARNING?NO HEARING IMPAIRED?NO VISION IMPAIRED?YES COGNITIVELY IMPAIRED?NO :CORRECTIVE LENSES READINESS TO LEARN?YES LEARNING PREFERENCES?NO LEARNING CAPABILITIES PRESENT?YES EMOTIONAL BARRIERS?NO SPECIAL DEVICES?NO TRANSITIONAL NURSE NEEDED?NO PAIN CLINIC PFS, CLERGY, PUBLIC HEALTH REFERRALS WAS THE PROVIDER NOTIFIED OF ANY PERTINENT INFO?YES HAS THE PATIENT BEEN EDUCATED REGARDING HIS/HER PLAN OF CARE?YES HAS THE PATIENT BEEN EDUCATED REGARDING PAIN, THE RISK FOR PAIN, THE IMPORTANCE OF EFFECTIVE PAIN MANAGEMENT, AND THE PAIN ASSESSMENT PROCESS?YES LATEX QUESTIONNAIRE LATEX ALLERGY : HAVE YOU EVER DEVELOPED ANY TYPE OF REACTION AFTER HANDLING LATEX PRODUCTS SUCH RUBBER GLOVES, CONDOMS, DIAPHRAGMS, BALLOONS, SOCKS, OR UNDERWEAR?NO LATEX ALLERGY : HAVE YOU EVER DEVELOPED ANY TYPE OF REACTION DURING OR AFTER DENTAL APPOINTMENT, VAGINAL/RECTAL EXAMINATION, SURGICAL PROCEDURE, OR ANY OTHER EXPOSURE?NO LATEX RISK : HAVE YOU EVER HAD ANY DIFFICULTY BREATHING OR HIVES AFTER EATING OR HANDLING ANY FRUITS, OR VEGETABLES; SUCH KIWI, BANANAS, STONE FRUITS, OR CHESTNUTSNO LATEX RISK : DO YOU HAVE A PREVIOUS PERSONAL HISTORY OF MORE THAN NINE SURGERIES, SPINA BIFIDA, OR REPEATED CATHERIZATIONS? NO LATEX RISK : ARE YOU FREQUENTLY EXPOSED TO LATEX PRODUCTS IN YOUR OCCUPATION?NO DATE ASKED : 05/27/2019 CAFFEINE CAFFEINE USE?YES HOW OFTEN AND HOW MUCH? COFFEE ADVANCE DIRECTIVE ADVANCE DIRECTIVE DISCUSSED WITH PATIENT:YES HCP LUKAS BROCK - DAUGHTER, PT STATES THAT SHE ALSO HAS A DNR, ON FILE IN HOSPITAL GNOSTICIST [id number] STATUS: . ALCOHOL SCREENING DID YOU HAVE A DRINK CONTAINING ALCOHOL IN THE PAST YEAR?NO POINTS0 INTERPRETATIONNEGATIVE OCCUPATION: RETIRED. SEXUAL HX HAD SEX IN THE LAST 12 MONTHS (VAGINAL, ORAL, OR ANAL)?YES WITHMEN ONLY USE PROTECTION?NO HAVE YOU EVER HAD AN STD?NO HCP IS SERGIO BROCK, DAUGHTER, LIVES IN [place]-01/2014 REVIEWED WITH PATIENT 04/22/2019 DSPRE PROCEDURE PHONE CALL COMPLETED 05/27/2019 0935 NLJ- CLEARANCE IN DOCUMENTS TO HOLD ELIQUIS 4 DAYS PRIOR TO PROCEDUREREVIEWED WITH PATIENT 06/13/2019 0907 NLJ. HOSPITALIZATION/MAJOR DIAGNOSTIC PROCEDURE ATYPICAL CHEST PAIN-NEGATIVE SERIAL CARDIAC ENZYMES 06/2011 DYSPNEA/DIARRHEA/DYSPEPSIA C BRBPR C ROQUE HGB 8.6 SP 1U PRBC TX, DOA WBC 12.8, 9.9 ON DOD, CT AP C TRANSERVE COLONIC THICKENING "CW COLITIS" (NO GI PANEL DONE NOR ABX GIVEN), ACUTE CHF/AF C RVR-DIURESED 4L, STABLE TTE 05/27- REVIEW OF SYSTEMS REVIEWED BY: PROVIDER: . CONSTITUTIONAL: ANY CHANGE IN YOUR MEDICAL CONDITION? NO . CHILLS NO . FEVER NO . INFECTION: DO YOU HAVE NEW INFECTIONS? NO . DO YOU HAVE HISTORY OF MRSA? NO . MUSCULOSKELETAL: ANY NEW PATTERNS OF PAIN OR NUMBNESS? NO . GASTROENTEROLOGY: ANY NEW CHANGE IN BOWEL CONTROL? NO . GENITOURINARY: ANY NEW CHANGE IN BLADDER CONTROL? NO . IS THERE A CHANCE YOU COULD BE ? NO . HEMATOLOGY/LYMPH: DO YOU TAKE ANY BLOOD THINNERS? (FOR EXAMPLE- COUMADIN, PLAVIX, AGGRENOX, PLATEL, PRADAXA, OR XARELTO) YES- ELIQUIS . WHEN WAS YOUR LAST DOSE? DATE:06/09/2019 TIME: 1800 . NEUROLOGY: HAVE YOU FALLEN IN THE PAST 12 MONTHS? NO . ANY NEW EXTREMITY NUMBNESS OR WEAKNESS? NO . CARDIOLOGY: DO YOU HAVE A PACEMAKER OR DEFIBRILLATOR? NO . RESPIRATORY: HAVE YOU BEEN SICK IN THE PAST WEEK? NO . FEVER NO . FLU LIKE SYMPTOMS? NO . COUGH NO . INTEGUMENTARY: DO YOU HAVE ANY RASHES OR OPEN SORES? NO . ALLERGIC/IMMUNO: ARE YOU ALLERGIC TO IV DYE? NO . ANY NEW ALLERGIES? NO . PSYCHIATRIC: DO YOU HAVE THOUGHTS OF HURTING YOURSELF OR SOMEONE ELSE? NO . ARE YOU ABUSED, NEGLECTED, OR IN AN UNSAFE ENVIRONMENT? NO . ENDOCRINOLOGY: ARE YOU DIABETIC? YES-159 . OTHER: DO YOU NEED ANY PRESCRIPTIONS? NO . IF YES, PLEASE LIST: ____ . ANY NEW PROBLEMS WITH YOUR MEDICATIONS? NO . WHEN DID YOU LAST EAT? 06/12/2019 1700 . WHEN DID YOU LAST DRINK? 06/12/20191999 . WHAT DID YOU LAST DRINK? WATER . NAME OF PERSON DRIVING YOU HOME? SHIRIN SEQUEIRA- . DO YOU HAVE ANY OTHER QUESTIONS OR CONCERNS NO . VITAL SIGNS WT 130.8 LBS, HT 60 IN, BMI 25.54 INDEX, BP 133/69 MM HG, HR 78 /MIN, RR 18 /MIN, TEMP 97.9 F, OXYGEN SAT % 97%, SAFE IN ENV? (Y/N) YES, REVIEWED BY: LAS. HEARN CERVICAL DISC DISORDER WITH RADICULOPATHY, UNSPECIFIED CERVICAL REGION - M50.10 (PRIMARY) TREATMENT CERVICAL DISC DISORDER WITH RADICULOPATHY, UNSPECIFIED CERVICAL REGION SMC FLUORO GUIDE SPINE INJECTION (PAIN) PROCEDURES PN CERVICAL EPIDURAL PRE PROCEDURE DIAGNOSIS CERVICAL POST LAMINECTOMY PAIN SYNDROME, CERVICAL DISC DISORDER WITH RADICULOPATHY POST PROCEDURE DIAGNOSIS CERVICAL POST LAMINECTOMY PAIN SYNDROME, CERVICAL DISC DISORDER WITH RADICULOPATHY PROCEDURE CERVICAL EPIDURAL STEROID INJECTION UNDER FLUOROSCOPIC GUIDANCE SURGEON DR. TAYLOR DE LA CRUZ TECHNICAL COMMUNICATION TEACHER NONE ANESTHESIA LOCAL PRE PROCEDURE NOTE THE PATIENT HAS A HISTORY OF CHRONIC CERVICAL PAIN. I EVALUATED THE PATIENT AND REVIEWED THE CHART. I WENT OVER THE RISKS, ALTERNATIVES, AND BENEFITS ASSOCIATED WITH THIS PROCEDURE. THE PATIENT WOULD LIKE TO PROCEED AND GIVES CONSENT TO PERFORM THE PROCEDURE. THE PATIENT DENIES UNEXPLAINABLE WEIGHT LOSS, FEVER, CHILLS, OR NEW CHANGES IN URINARY OR BOWEL CONTROL DESCRIPTION OF PROCEDURE THE PATIENT WAS BROUGHT TO THE PROCEDURE ROOM AND PLACED IN THE PRONE POSITION. THE CERVICOTHORACIC AREA WAS CLEANED WITH BETADINE SOLUTION AND DRAPED ASEPTICALLY. THE PROCEDURE WAS DONE UNDER STERILE CONDITIONS. I CHECKED LATERALITY AND THE LEVEL WHERE THE PROCEDURE WAS GOING TO BE PERFORMED WITH THE PATIENT AND THE SUPPORTING STAFF AT THE MOMENT OF THE TIME OUT IN THE PROCEDURE ROOM. UNDER FLUOROSCOPIC GUIDANCE, THE TARGET WAS SELECTED AT THE INTERLAMINAR LEVEL OF C7-T1. LIDOCAINE WAS USED TO NUMB THE SKIN AND THE SUBCUTANEOUS TISSUE BELOW IT. EPIDURAL TUOHY NEEDLE 17-GAUGE WAS ADVANCED UNDER FLUOROSCOPIC GUIDANCE AND FOLLOWING PATIENT FEEDBACK UNTIL THE EPIDURAL SPACE WAS REACHED 6 CM DEEP INTO THE SKIN BY THE LOSS OF RESISTANCE TECHNIQUE. ISOVUE M DYE 30%, 0.25 ML, WAS INJECTED SHOWING ADEQUATE SPREAD OF THE DYE. THEN, A SOLUTION OF 3 ML OF NORMAL SALINE WITH DEPO-MEDROL 60 MG WAS INJECTED SLOWLY FOLLOWING PATIENT FEEDBACK. THERE WAS NO EVIDENCE OF BLOOD, PARESTHESIA OR CEREBROSPINAL FLUID DURING THE PROCEDURE. THE PATIENT WAS SENT TO THE RECOVERY ROOM. THE PATIENT WAS MOVING THE EXTREMITIES AND DOING WELL. THERE WAS NO COMPLICATION DURING THE PROCEDURE. FLUOROSCOPY TIME WAS 18 SECONDS POST PROCEDURE NOTE THE PATIENT WILL BE SEEN IN A FOLLOW UP IN THE NEXT FEW WEEKS. INSTRUCTIONS WERE GIVEN, QUESTIONS WERE ANSWERED, AND THE PATIENT EXPRESSED UNDERSTANDING AND AGREES WITH THE PLAN. I, NIDHI MONTIEL, DOCUMENTED THE ABOVE INFORMATION ACTING A SCRIBE FOR DR. DE LA CRUZ. I HAVE REVIEWED THE ABOVE DOCUMENT, WRITTEN BY NIDHI MONTIEL SCRIBLuana AND I VERIFY THAT IT IS ACCURATE. PROCEDURE CODES 45274 CERVICAL/THORACIC W/ IMAGING 6045F RADXPS IN END [id number] PXD DISPOSITION & COMMUNICATION FOLLOW UP 3 WEEKS ELECTRONICALLY SIGNED BY TAYLOR DE LA CRUZ MD, MD ON 06/17/2019 AT 04:29 PM EST DISCLAIMER : THIS IS A VISIT SUMMARY EXTRACTED FROM THE [employer] CHART. IT IS NOT A COPY OF THE [employer] PROGRESS NOTE. REAL
== END ==
LOC: M PAIN 09:00
PROVIDERS: ATTEND Anesthesiology
DX: M50.10 Cervical disc disorder with radiculopathy, unspecified cervical region (principal); G40.909 Epilepsy, unspecified, not intractable, without status epilepticus; K21.9 Gastro-esophageal reflux disease without esophagitis; I10 Essential (primary) hypertension; E78.5 Hyperlipidemia, unspecified; E11.9 Type 2 diabetes mellitus without complications; J45.20 Mild intermittent asthma, uncomplicated; G47.33 Obstructive sleep apnea (adult) (pediatric); D50.9 Iron deficiency anemia, unspecified; Z88.8 Allergy status to other drugs, medicaments and biological substances; Z79.01 Long term (current) use of anticoagulants; Z79.82 Long term (current) use of aspirin; Z79.84 Long term (current) use of oral hypoglycemic drugs; Z79.899 Other long term (current) drug therapy
CPT/HCPCS: 62321; J1030; Q9967

== ENCOUNTER → 2019-06-27 | Outpatient (CLI) | payer MEDICARE ==
[~2019-06-27] MED LIST changes: -ISOVUE-M 300 61% 15ML VIAL (Q9967) As Ordered ONE; -LIDOCAINE 1% SDV INJ 30 ML VIAL As Ordered ONE; -methylPREDNISolone SUSP 40 MG/ML (DEPO-medrol) VIAL (J1030) As Ordered ONE
--- NOTE | 2019-06-28 04:31 | ECWPNPC ---
PATIENT NAME: JORGE SEQUEIRA : 1945 GENDER: FEMALE VISIT DATE: 06/27/2019 DISCHARGE DATE: 06/27/19 1122 VISIT LOCKED DATE TIME: PHYSICIAN: RAQUEL SOTO PHYSICIAN PAGER NO: [phone] RESOURCE: RAQUEL SOTO REASON FOR APPOINTMENT 1. POST PROCEDURE HISTORY OF PRESENT ILLNESS HISTORY OF PRESENT ILLNESS: HERE FOR POST PROCEDURE FOLLOW-UP. HAD CERVICAL EPIDURAL STEROID INJECTION C7-T1 ON 06/13/2019. UNFORTUNATELY, SHE HAD A VERY BAD EXPERIENCE. THEY HAD DIFFICULTY SECURING OF VEIN. BLOOD SUGAR WAS ELEVATED POST PROCEDURE AND REQUIRED MEDICATION CHANGES FROM PRIMARY CARE. STATES IT DID NOT REDUCE HER ARM PAIN AT ALL. REPORTING SOME IMPROVEMENT IN NECK PAIN. DISCUSSED MEDICATION AND TREATMENT OPTIONS. SHE WOULD LIKE TO HOLD OFF ON ANY FURTHER MEDICATION CHANGES OR PROCEDURES. SHE IS GETTING ADEQUATE SLEEP AT NIGHT. HAS TO BE ALERT TO TAKE CARE OF HER . RATING PAIN LEVEL A 6/10. PAIN IS LOCATED FROM THE LEFT ELBOW TO THE HAND IN A GLOVELIKE FASHION. PAIN THE PATIENT DESCRIBES THE PAIN... FALL RISK SCREENING: SCREENING :NO FALLS REPORTED IN THE LAST YEAR CURRENT MEDICATIONS TAKING CALCIUM 600 + D 600-400 MG-UNIT TABLET 1 TABLET ORALLY TWICE A DAY TAKING VITAMIN D 2000 UNIT TABLET 1 TABLET ORALLY ONCE A DAY TAKING APIXABAN 5 MG TABLET 1 TAB ORALLY BID TAKING ATENOLOL 50 MG TABLET 1 1/2 TABLET ORALLY TWICE A DAY TAKING ATORVASTATIN CALCIUM 80 MG TABLET 1 TABLET ORALLY ONCE A DAY TAKING LOSARTAN POTASSIUM 50 MG TABLET 1 TABLET ORALLY EVERY MORNING TAKING NITROSTAT 0.4 MG TABLET SUBLINGUAL 1 TABLET UNDER THE TONGUE SUBLINGUAL EVERY 5 MINUTES X3 NEEDED FOR CHEST PAIN TAKING ASPIRIN 81 81 MG TABLET CHEWABLE 1 TABLET ORALLY ONCE A DAY TAKING SLOW FE 142 (45 FE) MG TABLET EXTENDED RELEASE 1 TABLET ORALLY DAILY TAKING I CAPS _ CAPSULE 2 CAPSULE PO ONCE A DAY TAKING TRAVATAN Z 0.004 % SOLUTION 1 DROP INTO BOTH EYES OPHTHALMIC ONCE A DAY TAKING SIMBRINZA 1-0.2 % SUSPENSION 1 DROP INTO BOTH EYES OPHTHALMIC TWICE DAILY TAKING CARPAL TUNNEL WRIST STABILIZER - MISCELLANEOUS DIRECTED LEFT WRIST DAILY- G56.02 TAKING BLOOD GLUCOSE TEST - STRIP DIRECTED SUBCUTANEOUSLY TWICE DAILY DX: E11.8 TAKING COMPRESSION STOCKINGS 15-20 MMHG DIRECTED I50.32 DAILY TAKING CYANOCOBALAMIN 100 MCG TABLET 1 TABLET ORALLY ONCE A DAY TAKING KLOR-CON 10 10 MEQ TABLET EXTENDED RELEASE 2 TABS ORALLY TWICE A DAY TAKING FUROSEMIDE 40 MG TABLET 2 TABLETS ORALLY BID TAKING GLUCOPHAGE XR 500 MG TABLET EXTENDED RELEASE 24 HOUR 2 TABLETS ORALLY TWICE A DAY TAKING GLUCOSE STRIP (VERIO IQ) DIRECTED BID TAKING ONETOUCH VERIO FLEX SYSTEM W/DEVICE KIT DIRECTED _ BID TAKING SITAGLIPTIN PHOSPHATE 100 MG TABLET 1 TABLET ORALLY ONCE A DAY TAKING OMEPRAZOLE 20 MG CAPSULE DELAYED RELEASE 2 CAPSULES ORALLY EVERY MORNING MEDICATION LIST REVIEWED AND RECONCILED WITH THE PATIENT PAST MEDICAL HISTORY OSTEOPENIA RHEUMATOID ARTHRITIS EPILEPSY-LAST SEIZURE EPISODE 1994, PATIENT DISCONTINUED DEPAKOTE ON HER OWN JUNE 2009 GERD/GERD-REFLUX ESOPHAGITIS, S METAPLASIA BY 04/2002 EGD-STEPHEN HYPERTENSION-06/2017 TTE-MODERATE MR/TR, GRADE 1 DIASTOLIC DYSFUNCTION, MILD PULMONARY HYPERTENSION-ANTECOL HYPERLIPIDEMIA 2B SINGLE-VESSEL CAD STATUS POST LAD STENT FEBRUARY 2007-LAUREN06/2017 NST MILD INCREASED RISK, WITHOUT REVERSIBILITY, LVEF 70%-BRUNNER T2DM NID ASTHMA, MILD INTERMITTENT GLAUCOMA, OU PRIMARY OPEN-ANGLE VITAMIN D DEFICIENCY SVT, PAROXYSMAL ALLERGIC RHINITIS-09/2011 NEGATIVE ZONE 1 ALLERGY PANEL ATRIAL FIBRILLATION, CHRONIC, NEWLY DETECTED 06/12/17 VISHAL, MILD-06/2017 HST MARY ANNE 9 C SAO2 TO 85% ANEMIA 2 FE/B12 DEFICIENCY-09/2018 COLON/EGD-NORMAL BILROTH IIGJ, SIGMOID LOSIS-ANNA MARIE CERVICAL SPONDYLOSIS-SP C4-7 FUSION, MILD FJA , S CHANGE C F/E BY 09/2018 XRAY CHRONIC CHF 2 HODA DYSF ALLERGIES CYMBALTA: INCREASED BP - SIDE EFFECTS SURGICAL HISTORY LAMINECTOMY 07/29/1999 TONSILLECTOMY APPENDECTOMY PARTIAL HYSTERECTOMY,VAGINAL ULCER/STOMACH SURGERY-X 2 RIGHT EYE SURGERY-EXPRESS SHUNT-DR. BANKS-KARIS @ [facility] 07/18/15 LASER SURGERY- LEFT EYE- TRAMAINE- DR. BANKS @ [facility] 08/15/15 EXPRESS SHUNT- LEFT EYE- DR. BANKS [facility] 10/09/15 LEFT CATARACT 05/28/2016 LASER SURGERY BILATERAL EYES 01/29 &03/01 FAMILY HISTORY FATHER: 55 YRS, 2 TO [place]/DM2 MOTHER: 85 YRS, 2 TO [place], DM2 DAUGHTER DIAGNOSED C BREAST CANCER AT 54 YO. SOCIAL HISTORY GENERAL: TOBACCO USE ARE YOU A:NONSMOKER HIV / HEP-C SCREENING HIV TEST OFFERED TO PATIENT:NO N/A HEP-C TEST OFFERED TO PATIENT:YES DATE OFFERED:06/16/2016 TEST ACCEPTED:NO REASON:PATIENT DECLINED HOUSING: OWNS HOME. EDUCATION LEVEL OF EDUCATION:NOT FINISHED HIGH SCHOOL GED DIET: NO CONCENTRATED SWEETS.. LANGUAGE LANGUAGES SPOKEN:KAZAKH DOMESTIC VIOLENCE DO YOU FEEL SAFE IN YOUR ENVIRONMENT?YES NEW PATIENT PAIN DIARY PATIENT DESCRIBES PAIN :ACHING, BURNING FROM 0-10, WHAT LEVEL IS YOUR PAIN TODAY?8 NAME OF PERSON DRIVING YOU HOME IS THERE A CHANCE YOU COULD BE ?NO HAVE YOU BEEN SICK IN THE LAST WEEK (COLD, COUGH, FEVER, FLU, ETC)NO DO YOU TAKE ANY BLOOD THINNERS?YES LAST DOSE ELIQUIS DO YOU HAVE ANY RASHES OR OPEN SORES?NO ANY CHANGE IN BOWEL OR BLADDER CONTROL?NO ARE YOU ALLERGIC TO SHELLFISH OR IV DYE?NO ARE YOU DIABETIC?NO DO YOU HAVE A PACEMAKER OR DEFIBRILLATOR?NO ANY NEW PROBLEMS WITH MEDICINES OR NEW ALLERGIESNO ANY NEW PATTERNS OF PAIN OR NUMBNESS?YES ANY CHANGE IN YOUR MEDICAL CONDITION?NO HAVE YOU FALLEN IN THE LAST 6 MONTHS?NO DO YOU USE ANY TYPE OF TOBACCO (SMOKE, SMOKELESS, CHEW, ETC.)NO ARE YOU ABUSED, NEGLECTED, OR IN AN UNSAFE ENVIRONMENT?NO DO YOU HAVE THOUGHTS OF HURTING YOURSELF OR SOMEONE ELSE?NO DO YOU HAVE ANY OTHER QUESTIONS OR CONCERNS?NO RECREATIONAL DRUG USE DRUG USE?NO LEARNING BARRIERS / SPECIAL NEEDS CHANGE FROM LAST VISIT?NO BARRIERS TO LEARNING?NO HEARING IMPAIRED?NO VISION IMPAIRED?YES COGNITIVELY IMPAIRED?NO :CORRECTIVE LENSES READINESS TO LEARN?YES LEARNING PREFERENCES?NO LEARNING CAPABILITIES PRESENT?YES EMOTIONAL BARRIERS?NO SPECIAL DEVICES?NO PAINT MIXER NEEDED?NO PAIN CLINIC PFS, CLERGY, PUBLIC HEALTH REFERRALS WAS THE PROVIDER NOTIFIED OF ANY PERTINENT INFO?YES HAS THE PATIENT BEEN EDUCATED REGARDING HIS/HER PLAN OF CARE?YES HAS THE PATIENT BEEN EDUCATED REGARDING PAIN, THE RISK FOR PAIN, THE IMPORTANCE OF EFFECTIVE PAIN MANAGEMENT, AND THE PAIN ASSESSMENT PROCESS?YES LATEX QUESTIONNAIRE LATEX ALLERGY : HAVE YOU EVER DEVELOPED ANY TYPE OF REACTION AFTER HANDLING LATEX PRODUCTS SUCH RUBBER GLOVES, CONDOMS, DIAPHRAGMS, BALLOONS, SOCKS, OR UNDERWEAR?NO LATEX ALLERGY : HAVE YOU EVER DEVELOPED ANY TYPE OF REACTION DURING OR AFTER DENTAL APPOINTMENT, VAGINAL/RECTAL EXAMINATION, SURGICAL PROCEDURE, OR ANY OTHER EXPOSURE?NO LATEX RISK : HAVE YOU EVER HAD ANY DIFFICULTY BREATHING OR HIVES AFTER EATING OR HANDLING ANY FRUITS, OR VEGETABLES; SUCH KIWI, BANANAS, STONE FRUITS, OR CHESTNUTSNO LATEX RISK : DO YOU HAVE A PREVIOUS PERSONAL HISTORY OF MORE THAN NINE SURGERIES, SPINA BIFIDA, OR REPEATED CATHERIZATIONS? NO LATEX RISK : ARE YOU FREQUENTLY EXPOSED TO LATEX PRODUCTS IN YOUR OCCUPATION?NO DATE ASKED : 05/27/2019 CAFFEINE CAFFEINE USE?YES HOW OFTEN AND HOW MUCH? COFFEE ADVANCE DIRECTIVE ADVANCE DIRECTIVE DISCUSSED WITH PATIENT:YES HCP LUKAS BROCK - DAUGHTER, PT STATES THAT SHE ALSO HAS A DNR, ON FILE IN [facility]ITAL TENRIISM [id number] [facility]ITAL STATUS: . ALCOHOL SCREENING DID YOU HAVE A DRINK CONTAINING ALCOHOL IN THE PAST YEAR?NO POINTS0 INTERPRETATIONNEGATIVE OCCUPATION: RETIRED. SEXUAL HX HAD SEX IN THE LAST 12 MONTHS (VAGINAL, ORAL, OR ANAL)?YES WITHMEN ONLY USE PROTECTION?NO HAVE YOU EVER HAD AN STD?NO HOSPITALIZATION/MAJOR DIAGNOSTIC PROCEDURE ATYPICAL CHEST PAIN-NEGATIVE SERIAL CARDIAC ENZYMES 06/2011 DYSPNEA/DIARRHEA/DYSPEPSIA C BRBPR C ROQUE HGB 8.6 SP 1U PRBC TX, DOA WBC 12.8, 9.9 ON DOD, CT AP C TRANSERVE COLONIC THICKENING "CW COLITIS" (NO GI PANEL DONE NOR ABX GIVEN), ACUTE CHF/AF C RVR-DIURESED 4L, STABLE TTE 05/27- REVIEW OF SYSTEMS REVIEWED BY: PROVIDER: RAQUEL TREJO . CONSTITUTIONAL: ANY CHANGE IN YOUR MEDICAL CONDITION? NO . CHILLS NO . FEVER NO . INFECTION: DO YOU HAVE NEW INFECTIONS? NO . DO YOU HAVE HISTORY OF MRSA? NO . MUSCULOSKELETAL: ANY NEW PATTERNS OF PAIN OR NUMBNESS? NO . GASTROENTEROLOGY: ANY NEW CHANGE IN BOWEL CONTROL? NO . GENITOURINARY: ANY NEW CHANGE IN BLADDER CONTROL? NO . IS THERE A CHANCE YOU COULD BE ? NO . HEMATOLOGY/LYMPH: DO YOU TAKE ANY BLOOD THINNERS? (FOR EXAMPLE- COUMADIN, PLAVIX, AGGRENOX, PLATEL, PRADAXA, OR XARELTO) YES, ELIQUIS . WHEN WAS YOUR LAST DOSE? DATE: 06/27/19TIME: 0600 . NEUROLOGY: HAVE YOU FALLEN IN THE PAST 12 MONTHS? NO . ANY NEW EXTREMITY NUMBNESS OR WEAKNESS? NO . CARDIOLOGY: DO YOU HAVE A PACEMAKER OR DEFIBRILLATOR? NO . RESPIRATORY: HAVE YOU BEEN SICK IN THE PAST WEEK? NO . FEVER NO . FLU LIKE SYMPTOMS? NO . COUGH NO . INTEGUMENTARY: DO YOU HAVE ANY RASHES OR OPEN SORES? NO . ALLERGIC/IMMUNO: ARE YOU ALLERGIC TO IV DYE? NO . ANY NEW ALLERGIES? NO . PSYCHIATRIC: DO YOU HAVE THOUGHTS OF HURTING YOURSELF OR SOMEONE ELSE? NO . ARE YOU ABUSED, NEGLECTED, OR IN AN UNSAFE ENVIRONMENT? NO . ENDOCRINOLOGY: ARE YOU DIABETIC? YES . OTHER: DO YOU NEED ANY PRESCRIPTIONS? NO . IF YES, PLEASE LIST: ____ . ANY NEW PROBLEMS WITH YOUR MEDICATIONS? NO . WHEN DID YOU LAST EAT? ____ . WHEN DID YOU LAST DRINK? ____ . WHAT DID YOU LAST DRINK? ____ . NAME OF PERSON DRIVING YOU HOME? ____ . DO YOU HAVE ANY OTHER QUESTIONS OR CONCERNS NO . VITAL SIGNS WT 128 LBS, HT 60 IN, BMI 25.00 INDEX, BP 141/64 MM HG, HR 68 /MIN, RR 18 /MIN, TEMP 97.6 F, OXYGEN SAT % 99%, SAFE IN ENV? (Y/N) YES, NA INITIALS AW 1101, REVIEWED BY: VICTOR HUGO. EXAMINATION GENERAL EXAMINATION: GENERALAWAKE,ALERT ,PLEASANT . PSYCHAFFECT NORMAL . LUNGS:LUNG CARTER ARE CLEAR TO AUSCULTATION BILATERALLY. GOOD MOVEMENT OF AIR . HEART:S1, S2 IN A REGULAR RATE AND RHYTHM. NO SIGNIFICANT MURMURS, RUBS OR GALLOPS NOTED . ASSESSMENTS CERVICAL SPONDYLOSIS - M47.812 (PRIMARY) TREATMENT CERVICAL SPONDYLOSIS NOTES: PATIENT WILL HOLD OFF ON ANY FURTHER TREATMENT FOR NOW. STATES THAT SHE IS COPING WITH THE PAIN. HAD A DIFFICULT TIME WITH CERVICAL EPIDURAL STEROID INJECTION DONE RECENTLY. IT RAISED HER BLOOD SUGAR IN THE HEAD TO DO MEDICATION CHANGES TO ACCOMMODATE. DOESN'T LIKE TO TAKE MEDICATIONS. IS GETTING ADEQUATE SLEEP AT NIGHT. CANNOT BE IMPAIRED SHE IS REQUIRED TO TAKE CARE OF HER . SHE WILL CONTACT US SHOULD HER CONDITION CHANGE AND WE CAN REEVALUATE AT THAT TIME AREA. PROCEDURE CODES FA211 ESTABILISHED PATIENT [facility] CHARGE DISPOSITION & COMMUNICATION FOLLOW UP PT WILL CALL ELECTRONICALLY SIGNED BY NEIL HERNANDEZ ON 06/27/2019 AT 11:31 AM EDT DISCLAIMER : THIS IS A VISIT SUMMARY EXTRACTED FROM THE [employer] CHART. IT IS NOT A COPY OF THE [employer] PROGRESS NOTE. REAL
== END ==
LOC: M PAIN 10:15
PROVIDERS: ATTEND Nurse Practitioner Family
DX: M47.812 Spondylosis without myelopathy or radiculopathy, cervical region (principal); Z79.82 Long term (current) use of aspirin; Z79.84 Long term (current) use of oral hypoglycemic drugs; Z79.899 Other long term (current) drug therapy; Z88.8 Allergy status to other drugs, medicaments and biological substances

== ENCOUNTER → 2020-01-02 | Outpatient (CLI) | payer MEDICARE ==
[~2020-01-02] MED LIST changes: -METF-791 PO; +METF-838 PO
[2020-01-02 13:43] LABS: BASO # 0.1 10^3/uL (0.0-0.2); EOS # 0.1 10^3/uL (0.0-0.5); EOS % 0.9 % (0.0-3.0); HEMATOCRIT 41.8 % (36.0-47.0); HEMOGLOBIN 13.2 g/dl (12.0-15.5); LYMPH % 12.7 % (24.0-44.0); MEAN CORPUSCULAR HGB CONC 31.6 g/dl (32.0-36.5); MEAN CORPUSCULAR VOLUME 88.6 fl (80.0-96.0); MONO # 0.6 10^3/uL (0.0-0.8); MONO % 7.4 % (0.0-5.0); NEUTROPHILS # 6.3 10^3/uL (1.5-8.5); NEUTROPHILS % 77.5 % (36.0-66.0); PLATELET COUNT, AUTOMATED 388 10^3/uL (150-450); RED BLOOD COUNT 4.72 10^6/uL (4.00-5.40); WHITE BLOOD COUNT 8.2 10^3/uL (4.0-10.0)
[2020-01-02 14:45] LABS: ALBUMIN 3.5 GM/DL (3.2-5.2); ALT/SGPT 25 U/L (12-78); BILIRUBIN,TOTAL 0.6 MG/DL (0.2-1.0); BLOOD UREA NITROGEN 15 MG/DL (7-18); CALCIUM LEVEL 8.7 MG/DL (8.8-10.2); CARBON DIOXIDE LEVEL 27 MEQ/L (21-32); CHLORIDE LEVEL 103 MEQ/L (98-107); CREATININE FOR GFR 0.96 MG/DL (0.55-1.30); GLOMERULAR FILTRATION RATE > 60.0 (>39); GLUCOSE, FASTING 285 MG/DL (70-100); MAGNESIUM LEVEL 1.9 MG/DL (1.8-2.4); NT-PRO BNP 1594 PG/ML (<125); POTASSIUM SERUM 4.1 MEQ/L (3.5-5.1); SODIUM LEVEL 137 MEQ/L (136-145)
[2020-01-02 16:03] LABS: HEMOGLOBIN A1c 7.5 %
== END ==
LOC: M PLALAB 10:39
PROVIDERS: ATTEND Family Medicine
DX: R10.13 Epigastric pain (principal); E11.9 Type 2 diabetes mellitus without complications; I50.32 Chronic diastolic (congestive) heart failure; D50.9 Iron deficiency anemia, unspecified

== ENCOUNTER → 2020-02-23 | Outpatient (REF) | payer MEDICARE ==
[2020-02-23 15:28] LABS: BASO # 0.1 10^3/uL (0.0-0.2); BASO % 0.7 % (0.0-1.0); EOS % 0.3 % (0.0-3.0); HEMATOCRIT 41.7 % (36.0-47.0); LYMPH # 1.5 10^3/uL (1.5-5.0); LYMPH % 16.7 % (24.0-44.0); MEAN CORPUSCULAR HGB CONC 31.2 g/dl (32.0-36.5); MEAN CORPUSCULAR VOLUME 86.5 fl (80.0-96.0); MONO # 0.9 10^3/uL (0.0-0.8); MONO % 10.5 % (0.0-5.0); NEUTROPHILS # 6.3 10^3/uL (1.5-8.5); NEUTROPHILS % 71.2 % (36.0-66.0); PLATELET COUNT, AUTOMATED 493 10^3/uL (150-450); RED BLOOD COUNT 4.82 10^6/uL (4.00-5.40); WHITE BLOOD COUNT 8.9 10^3/uL (4.0-10.0)
[2020-02-23 15:39] LABS: INR 1.17; PARTIAL THROMBOPLASTIN TIME 30.4 SECONDS (24.2-38.5); PROTHROMBIN TIME 15.2 SECONDS (12.5-14.3)
[2020-02-23 15:50] LABS: ERYTHROCYTE SEDIMENTATION RATE 61 mm/hr (0-30)
[2020-02-23 16:00] LABS: ALBUMIN 3.6 GM/DL (3.2-5.2); ALT/SGPT 21 U/L (12-78); BILIRUBIN,TOTAL 0.7 MG/DL (0.2-1.0); BLOOD UREA NITROGEN 10 MG/DL (7-18); C REACTIVE PROTEIN QUANTITATIV 1.81 MG/DL (0.00-0.30); CALCIUM LEVEL 9.3 MG/DL (8.8-10.2); CARBON DIOXIDE LEVEL 29 MEQ/L (21-32); CHLORIDE LEVEL 100 MEQ/L (98-107); CREATININE FOR GFR 0.81 MG/DL (0.55-1.30); GLOMERULAR FILTRATION RATE > 60.0 (>39); GLUCOSE, FASTING 181 MG/DL (70-100); NT-PRO BNP 2162 PG/ML (<125); POTASSIUM SERUM 4.6 MEQ/L (3.5-5.1); SODIUM LEVEL 138 MEQ/L (136-145); TOTAL PROTEIN 7.7 GM/DL (6.4-8.2)
== END ==
LOC: M SFHCPLAZ 13:17
PROVIDERS: ATTEND Family Medicine
DX: D50.9 Iron deficiency anemia, unspecified (principal); I50.32 Chronic diastolic (congestive) heart failure; Z79.899 Other long term (current) drug therapy
CPT/HCPCS: 36415; 80053; 83036; 83880; 85025; 85610; 85652; 85730; 86140; G0463

== ENCOUNTER → 2020-05-07 | Outpatient (REF) | payer MEDICARE ==
[2020-05-07 10:24] LABS: BASO # 0.1 10^3/uL (0.0-0.2); BASO % 0.6 % (0.0-1.0); EOS % 0.3 % (0.0-3.0); HEMATOCRIT 36.8 % (36.0-47.0); HEMOGLOBIN 11.3 g/dl (12.0-15.5); LYMPH # 1.4 10^3/uL (1.5-5.0); LYMPH % 13.4 % (24.0-44.0); MEAN CORPUSCULAR HEMOGLOBIN 26.1 pg (27.0-33.0); MEAN CORPUSCULAR HGB CONC 30.7 g/dl (32.0-36.5); MONO # 0.8 10^3/uL (0.0-0.8); MONO % 7.2 % (0.0-5.0); NEUTROPHILS # 8.3 10^3/uL (1.5-8.5); NEUTROPHILS % 78.1 % (36.0-66.0); PLATELET COUNT, AUTOMATED 429 10^3/uL (150-450); RED BLOOD COUNT 4.33 10^6/uL (4.00-5.40); WHITE BLOOD COUNT 10.7 10^3/uL (4.0-10.0)
[2020-05-07 10:43] LABS: ERYTHROCYTE SEDIMENTATION RATE 60 mm/hr (0-30)
[2020-05-07 11:01] LABS: ALBUMIN 2.7 GM/DL (3.2-5.2); ALT/SGPT 21 U/L (12-78); BILIRUBIN,TOTAL 0.6 MG/DL (0.2-1.0); BLOOD UREA NITROGEN 15 MG/DL (7-18); CALCIUM LEVEL 8.9 MG/DL (8.8-10.2); CARBON DIOXIDE LEVEL 32 MEQ/L (21-32); CHLORIDE LEVEL 101 MEQ/L (98-107); CHOLESTEROL LEVEL 130 MG/DL (<200); CHOLESTEROL RISK RATIO 2.549 (<5); CREATININE FOR GFR 0.76 MG/DL (0.55-1.30); FREE T4 1.32 NG/DL (0.76-1.46); GLOMERULAR FILTRATION RATE > 60.0 (>39); GLUCOSE, FASTING 152 MG/DL (70-100); HDL CHOLESTEROL 51 MG/DL (>40); LDL CHOLESTEROL 57 MG/DL (<100); NON-HDL-C 79 MG/DL; POTASSIUM SERUM 4.2 MEQ/L (3.5-5.1); SODIUM LEVEL 140 MEQ/L (136-145); THYROID STIMULATING HORMONE 0.671 uIU/ML (0.358-3.740); TOTAL PROTEIN 6.4 GM/DL (6.4-8.2); TRIGLYCERIDES LEVEL 112 MG/DL (<150)
[2020-05-07 11:13] LABS: VITAMIN B12 LEVEL > 2000 PG/ML (247-911)
[2020-05-07 11:30] LABS: HEMOGLOBIN A1c 6.9 %
== END ==
LOC: M PLALAB 09:05
PROVIDERS: ATTEND Family Medicine
DX: E53.8 Deficiency of other specified B group vitamins (principal); E78.5 Hyperlipidemia, unspecified; M06.9 Rheumatoid arthritis, unspecified; E11.9 Type 2 diabetes mellitus without complications

== ENCOUNTER 2020-06-11 12:15 | Outpatient (CLI) | payer MEDICARE ==
[~2020-06-11 12:15] MED LIST changes: +ALBUTEROL SULFATE 2.5 MG/0.5 ML INH NEB SOLN INH PRN; +ASPI-569 PO; -ASPI81TAEC PO; +EPINEPHrine INJ 1 MG/ML 1ML AMP IM PRN; +diphenhydrAMINE 50MG/ML VIAL (J1200) IV PRN; +methylPREDNISolone 125MG 2ML VIAL IV PRN
[2020-06-11] MEDS ORDERED: FERRIC CARBOXYMALTOSE INJ 750 MG, VIAL MATE ADAPTER 1 EACH in NS 250 ML IV ONE (12:30)
[2020-06-11] MEDS ORDERED: NS 1,000 ML IV SCH (12:30)
[2020-06-11 12:51] VITALS: BP 135/58
[2020-06-11 14:20] VITALS: BP 151/63
== END 2020-06-11 14:20 | disposition home or self-care (01) ==
LOC: M INFU 12:15
PROVIDERS: ATTEND Family Medicine
DX: D50.9 Iron deficiency anemia, unspecified (principal)
CPT/HCPCS: 96365; J1439

== ENCOUNTER 2020-06-18 12:42 | Outpatient (CLI) | payer MEDICARE ==
[~2020-06-18] VITALS: Ht 147.3 cm; Wt 54.5 kg
[2020-06-18] MEDS ORDERED: FERRIC CARBOXYMALTOSE INJ 750 MG, VIAL MATE ADAPTER 1 EACH in NS 250 ML IV ONE (13:00)
[2020-06-18] MEDS ORDERED: NS 1,000 ML IV SCH (13:00)
[2020-06-18 13:25] VITALS: BP 135/64
[2020-06-18 14:15] VITALS: BP 120/55
== END 2020-06-18 14:15 | disposition home or self-care (01) ==
LOC: M INFU 12:42
PROVIDERS: ATTEND Family Medicine
DX: D50.9 Iron deficiency anemia, unspecified (principal)
CPT/HCPCS: 96365; J1439

== ENCOUNTER → 2020-06-26 | Outpatient (REF) | payer MEDICARE ==
[~2020-06-26] MED LIST changes: -ALBUTEROL SULFATE 2.5 MG/0.5 ML INH NEB SOLN INH PRN; -EPINEPHrine INJ 1 MG/ML 1ML AMP IM PRN; -diphenhydrAMINE 50MG/ML VIAL (J1200) IV PRN; -methylPREDNISolone 125MG 2ML VIAL IV PRN
[2020-06-26 14:05] LABS: BASO # 0.1 10^3/uL (0.0-0.2); BASO % 0.7 % (0.0-1.0); EOS % 0.3 % (0.0-3.0); HEMATOCRIT 41.8 % (36.0-47.0); LYMPH # 1.3 10^3/uL (1.5-5.0); LYMPH % 13.6 % (24.0-44.0); MEAN CORPUSCULAR HEMOGLOBIN 27.1 pg (27.0-33.0); MEAN CORPUSCULAR HGB CONC 31.1 g/dl (32.0-36.5); MEAN CORPUSCULAR VOLUME 87.1 fl (80.0-96.0); MONO % 9.9 % (2.0-8.0); NEUTROPHILS # 7.3 10^3/uL (1.5-8.5); NEUTROPHILS % 74.9 % (36.0-66.0); PLATELET COUNT, AUTOMATED 372 10^3/uL (150-450); WHITE BLOOD COUNT 9.7 10^3/uL (4.0-10.0)
[2020-06-26 15:24] LABS: ERYTHROCYTE SEDIMENTATION RATE 23 mm/hr (0-30)
[2020-06-26 15:42] LABS: ALBUMIN 3.2 GM/DL (3.2-5.2); BLOOD UREA NITROGEN 12 MG/DL (7-18); CALCIUM LEVEL 7.7 MG/DL (8.8-10.2); CARBON DIOXIDE LEVEL 29 MEQ/L (21-32); CHLORIDE LEVEL 103 MEQ/L (98-107); CREATININE FOR GFR 0.73 MG/DL (0.55-1.30); FERRITIN 1287 NG/ML (8-252); GLOMERULAR FILTRATION RATE > 60.0 (>39); GLUCOSE, FASTING 226 MG/DL (70-100); NT-PRO BNP 2575 PG/ML (<450); PHOSPHORUS LEVEL 1.2 MG/DL (2.5-4.9); POTASSIUM SERUM 3.9 MEQ/L (3.5-5.1); SODIUM LEVEL 139 MEQ/L (136-145)
[2020-06-27 15:09] LABS: G6PD2 4.9 x10E6/uL (3.77-5.28)
== END ==
LOC: M PLALAB 10:13
PROVIDERS: ATTEND Family Medicine
DX: D50.9 Iron deficiency anemia, unspecified (principal); M06.9 Rheumatoid arthritis, unspecified

== ENCOUNTER → 2020-09-20 | Outpatient (REF) | payer MEDICARE ==
[2020-09-20 11:15] LABS: BASO # 0.1 10^3/uL (0.0-0.2); BASO % 0.6 % (0.0-1.0); EOS # 0.1 10^3/uL (0.0-0.5); EOS % 0.6 % (0.0-3.0); HEMATOCRIT 40.8 % (36.0-47.0); LYMPH # 1.4 10^3/uL (1.5-5.0); LYMPH % 17.1 % (24.0-44.0); MEAN CORPUSCULAR HEMOGLOBIN 29.9 pg (27.0-33.0); MEAN CORPUSCULAR HGB CONC 31.9 g/dl (32.0-36.5); MEAN CORPUSCULAR VOLUME 93.8 fl (80.0-96.0); MONO # 0.9 10^3/uL (0.0-0.8); MONO % 10.2 % (2.0-8.0); NEUTROPHILS # 5.9 10^3/uL (1.5-8.5); NEUTROPHILS % 70.9 % (36.0-66.0); PLATELET COUNT, AUTOMATED 344 10^3/uL (150-450); RED BLOOD COUNT 4.35 10^6/uL (4.00-5.40); WHITE BLOOD COUNT 8.3 10^3/uL (4.0-10.0)
[2020-09-20 12:38] LABS: ERYTHROCYTE SEDIMENTATION RATE 27 mm/hr (0-30)
[2020-09-20 16:04] LABS: C REACTIVE PROTEIN QUANTITATIV 0.54 MG/DL (0.00-0.30); FREE T4 1.22 NG/DL (0.76-1.46); PTH INTACT 70.7 PG/ML (18.5-88.0); THYROID STIMULATING HORMONE 1.18 uIU/ML (0.358-3.740); TOTAL 25(OH) VITAMIN D 51.7 NG/ML (30.0-100.0)
[2020-09-20 16:24] LABS: HEMOGLOBIN A1c 5.9 %
== END ==
LOC: M PLALAB 09:09
PROVIDERS: ATTEND Family Medicine
DX: I50.32 Chronic diastolic (congestive) heart failure (principal); D50.9 Iron deficiency anemia, unspecified; M06.9 Rheumatoid arthritis, unspecified; E78.5 Hyperlipidemia, unspecified; E11.9 Type 2 diabetes mellitus without complications; E55.9 Vitamin D deficiency, unspecified

== ENCOUNTER → 2020-10-01 | Outpatient (REF) | payer MEDICARE ==
[~2020-10-01] MED LIST changes: +OMEP40CA4 PO; -OMEP40CA97 PO
[2020-10-01 14:09] LABS: INR 0.95; PROTHROMBIN TIME 12.9 SECONDS (12.5-14.3)
[2020-10-01 14:10] LABS: PARTIAL THROMBOPLASTIN TIME 26.8 SECONDS (24.2-38.5)
[2020-10-01 14:44] LABS: ALBUMIN 3.5 GM/DL (3.2-5.2); BLOOD UREA NITROGEN 14 MG/DL (7-18); CALCIUM LEVEL 8.9 MG/DL (8.8-10.2); CARBON DIOXIDE LEVEL 30 MEQ/L (21-32); CHLORIDE LEVEL 101 MEQ/L (98-107); CREATININE FOR GFR 0.85 MG/DL (0.55-1.30); GLOMERULAR FILTRATION RATE > 60.0 (>39); GLUCOSE, FASTING 177 MG/DL (70-100); PHOSPHORUS LEVEL 3.8 MG/DL (2.5-4.9); POTASSIUM SERUM 4.6 MEQ/L (3.5-5.1); PTH INTACT 65.2 PG/ML (18.5-88.0); SODIUM LEVEL 139 MEQ/L (136-145)
== END ==
LOC: M SFHCPLAZ 09:13
PROVIDERS: ATTEND Family Medicine
DX: Z01.818 Encounter for other preprocedural examination (principal); I50.32 Chronic diastolic (congestive) heart failure
CPT/HCPCS: 36415; 80069; 83970; 85610; 85730; G0463

== ENCOUNTER → 2020-12-28 | Outpatient (CLI) | payer MEDICARE ==
[~2020-12-28] MED LIST changes: -KLOR10TA76 PO; +POTA-136 PO
[2020-12-28 13:00] LABS: BASO # 0.1 10^3/uL (0.0-0.2); BASO % 0.8 % (0.0-1.0); EOS # 0.2 10^3/uL (0.0-0.5); EOS % 1.8 % (0.0-3.0); HEMATOCRIT 41.5 % (36.0-47.0); HEMOGLOBIN 13.6 g/dl (12.0-15.5); LYMPH # 1.1 10^3/uL (1.5-5.0); LYMPH % 12.3 % (24.0-44.0); MEAN CORPUSCULAR HEMOGLOBIN 30.2 pg (27.0-33.0); MEAN CORPUSCULAR HGB CONC 32.8 g/dl (32.0-36.5); MEAN CORPUSCULAR VOLUME 92.2 fl (80.0-96.0); MONO # 0.8 10^3/uL (0.0-0.8); MONO % 8.9 % (2.0-8.0); NEUTROPHILS % 75.4 % (36.0-66.0); PLATELET COUNT, AUTOMATED 406 10^3/uL (150-450); WHITE BLOOD COUNT 9.3 10^3/uL (4.0-10.0)
[2020-12-28 13:24] LABS: HEMOGLOBIN A1c 6.4 %
[2020-12-28 13:28] LABS: ALBUMIN 3.5 GM/DL (3.2-5.2); ALT/SGPT 33 U/L (12-78); BILIRUBIN,TOTAL 0.7 MG/DL (0.2-1.0); BLOOD UREA NITROGEN 15 MG/DL (7-18); CALCIUM LEVEL 8.9 MG/DL (8.8-10.2); CARBON DIOXIDE LEVEL 30 MEQ/L (21-32); CHLORIDE LEVEL 105 MEQ/L (98-107); CREATININE FOR GFR 0.66 MG/DL (0.55-1.30); FERRITIN 546 NG/ML (8-252); GLOMERULAR FILTRATION RATE > 60.0 (>39); GLUCOSE, FASTING 139 MG/DL (70-100); NT-PRO BNP 2621 PG/ML (<450); POTASSIUM SERUM 4.4 MEQ/L (3.5-5.1); SODIUM LEVEL 140 MEQ/L (136-145); TOTAL PROTEIN 6.8 GM/DL (6.4-8.2)
[2020-12-28 13:32] LABS: PTH INTACT 69.3 PG/ML (18.5-88.0); TOTAL 25(OH) VITAMIN D 60.7 NG/ML (30.0-100.0)
== END ==
LOC: M PLALAB 08:54
PROVIDERS: ATTEND Family Medicine
DX: I50.32 Chronic diastolic (congestive) heart failure (principal); D50.9 Iron deficiency anemia, unspecified; E11.9 Type 2 diabetes mellitus without complications; Z79.899 Other long term (current) drug therapy

== ENCOUNTER → 2021-03-15 | Outpatient (CLI) | payer MEDICARE ==
--- NOTE | 2021-03-15 10:04 | REPMRS ---
Patient History The patient states she has not had a clinical breast exam in over a year. Family history of breast cancer at age 50 or over in paternal grandmother, breast cancer at age 49 in daughter. No Hormone Replacement Therapy Tomosynthesis is performed. Volpara breast density is b. [facility] lifetime risk of breast cancer 6.9%. Patient states no breast complaints today. Patient has signed MRS History Sheet. Moderna vaccine 05/2020,06/2020.Patient states no breast complaints today. Patient has signed MRS History Sheet. Digital Woman Screen Mammo: March 15, 2021 - Exam #: [id number] Bilateral CC and MLO view(s) were taken. Technologist: Kayla Huggins, Technologist Prior study comparison: March 26, 2020, bilateral digital woman screen mammo performed at [facility] [place] [facility]. March 25, 2019, bilateral digital woman screen mammo performed at [facility] [place] [facility]. FINDINGS: There are scattered fibroglandular densities. There has been no change in the appearance of the mammogram from the prior studies. There is a mild amount of residual fibroglandular tissue which is fairly symmetric. There is no interval development of dominant mass, architectural distortion, or clustered microcalcification suggestive of malignancy. Assessment: BI-RADS/ACR category 1 mammogram. Negative Mammogram. Recommendation Routine screening mammogram in 1 year (for women over age 40). This mammogram was interpreted with the aid of an FDA-approved computer-aided dectection system. Electronically Signed By: Jose Miguel Worrell MD 03/15/21 [id number]
--- NOTE | 2021-03-15 11:37 | DEXAMM ---
INDICATION: OSTEOPENIA. COMPARISON: 12/29/2017. TECHNIQUE: Bone density was measured using dual-energy x-ray absorptiometry (DEXA). FINDINGS: AP SPINE L1-L4 BMD 0.895 g/cm2 Young Adult T-Score -2.4 Age Matched Z-Score -0.6. LT FEMUR, TOTAL BMD 0.876 g/cm2 Young Adult T-Score -1.0 Age Matched Z-Score 0.7. LT NECK BMD 0.758 g/cm2 Young Adult T-Score -2.0 Age Matched Z-Score -0.1. RT FEMUR, TOTAL BMD 0.906 g/cm2 Young Adult T-Score -0.8 Age Matched Z-Score 1.0. RT NECK BMD 0.789 g/cm2 Young Adult T-Score -1.8 Age Matched Z-Score 0.2. IMPRESSION: There is low bone density of the spine. There is low bone density of the left hip. There is low bone density of the right hip. The density of the spine has decreased 14.0% since the initial exam on 02/03/2006. The density of the spine decreased 8.0% since most recent exam on 12/29/2017. The density of the left hip has decreased 16.0% since initial exam on 02/03/2006. The density of the left hip has decreased 10.9% since most recent exam on 12/29/2017. The density of the right hip has decreased 13.5% since the initial exam on 02/03/2006. The density of the right hip has decreased 10.8% since the most recent exam on 12/29/2017. FOLLOW-UP: Recommendation for the next bone density exam: 2 years. <Electronically signed by Jose Miguel Worrell > 03/15/21 [id number]
== END ==
LOC: M WHC 08:29
PROVIDERS: ATTEND Family Medicine
DX: Z12.31 Encounter for screening mammogram for malignant neoplasm of breast (principal); M85.88 Other specified disorders of bone density and structure, other site; Z13.820 Encounter for screening for osteoporosis; M85.851 Other specified disorders of bone density and structure, right thigh; M85.852 Other specified disorders of bone density and structure, left thigh

== ENCOUNTER → 2021-06-03 | Outpatient (CLI) | payer MEDICARE ==
[~2021-06-03] MED LIST changes: +LOSA50TA28 PO; -LOSA50TA88 PO
[2021-06-03 13:26] LABS: BASO # 0.1 10^3/uL (0.0-0.2); BASO % 0.8 % (0.0-1.0); EOS # 0.2 10^3/uL (0.0-0.5); EOS % 1.8 % (0.0-3.0); HEMATOCRIT 44.6 % (36.0-47.0); HEMOGLOBIN 14.7 g/dl (12.0-15.5); LYMPH # 1.6 10^3/uL (1.5-5.0); LYMPH % 19.4 % (24.0-44.0); MEAN CORPUSCULAR HEMOGLOBIN 30.3 pg (27.0-33.0); MONO # 0.8 10^3/uL (0.0-0.8); NEUTROPHILS # 5.7 10^3/uL (1.5-8.5); NEUTROPHILS % 68.5 % (36.0-66.0); PLATELET COUNT, AUTOMATED 396 10^3/uL (150-450); RED BLOOD COUNT 4.85 10^6/uL (4.00-5.40); WHITE BLOOD COUNT 8.3 10^3/uL (4.0-10.0)
[2021-06-03 13:57] LABS: ERYTHROCYTE SEDIMENTATION RATE 9 mm/hr (0-30)
[2021-06-03 14:43] LABS: BILIRUBIN,TOTAL 0.8 MG/DL (0.2-1.0); C REACTIVE PROTEIN QUANTITATIV 0.3 MG/DL (0.00-0.30); CHOLESTEROL RISK RATIO 2.24 (<5); FREE T4 1.25 NG/DL (0.76-1.46); GLOMERULAR FILTRATION RATE 57.4 (>39); POTASSIUM SERUM 4.4 MEQ/L (3.5-5.1); THYROID STIMULATING HORMONE 1.58 uIU/ML (0.358-3.740); TOTAL PROTEIN 7.2 GM/DL (6.4-8.2)
[2021-06-04 20:07] LABS: ANA (HEP2) Negative (.)
== END ==
LOC: M PLALAB 08:46
PROVIDERS: ATTEND Family Medicine
DX: M06.9 Rheumatoid arthritis, unspecified (principal); I50.32 Chronic diastolic (congestive) heart failure; D50.9 Iron deficiency anemia, unspecified; E78.5 Hyperlipidemia, unspecified

== ENCOUNTER 2021-06-20 08:43 | Outpatient (CLI) | payer MEDICARE ==
[~2021-06-20] VITALS: Ht 147.3 cm; Wt 54.0 kg
[2021-06-20] MEDS ORDERED: ZOLEDRONIC ACID 5 MG in IV 1 EA IV ONE (09:00)
[2021-06-20 09:17] VITALS: BP 148/72
[2021-06-20 10:00] VITALS: BP 136/64
== END 2021-06-20 10:00 | disposition home or self-care (01) ==
LOC: M INFU 08:43
PROVIDERS: ATTEND Family Medicine
DX: M85.9 Disorder of bone density and structure, unspecified (principal)
CPT/HCPCS: 96365; J3489

== ENCOUNTER → 2021-11-07 | Outpatient (CLI) | payer MEDICARE ==
[2021-11-07 13:26] LABS: BASO # 0.1 10^3/uL (0.0-0.2); BASO % 0.9 % (0.0-1.0); EOS # 0.1 10^3/uL (0.0-0.5); EOS % 1.3 % (0.0-3.0); HEMATOCRIT 40.3 % (36.0-47.0); HEMOGLOBIN 13.5 g/dl (12.0-15.5); LYMPH # 1.5 10^3/uL (1.5-5.0); LYMPH % 21.4 % (24.0-44.0); MEAN CORPUSCULAR HEMOGLOBIN 31.3 pg (27.0-33.0); MEAN CORPUSCULAR HGB CONC 33.5 g/dl (32.0-36.5); MEAN CORPUSCULAR VOLUME 93.5 fl (80.0-96.0); MONO # 0.7 10^3/uL (0.0-0.8); MONO % 9.3 % (2.0-8.0); NEUTROPHILS # 4.7 10^3/uL (1.5-8.5); NEUTROPHILS % 66.7 % (36.0-66.0); PLATELET COUNT, AUTOMATED 330 10^3/uL (150-450); RED BLOOD COUNT 4.31 10^6/uL (4.00-5.40)
[2021-11-07 13:56] LABS: ERYTHROCYTE SEDIMENTATION RATE 10 mm/hr (0-30)
[2021-11-07 14:27] LABS: PTH INTACT 71.3 PG/ML (18.5-88.0); TOTAL 25(OH) VITAMIN D 37.6 NG/ML (30.0-100.0); VITAMIN B12 LEVEL 590 PG/ML (247-911)
[2021-11-07 14:28] LABS: ALBUMIN 3.8 GM/DL (3.2-5.2); ALT/SGPT 39 U/L (12-78); BILIRUBIN,TOTAL 0.6 MG/DL (0.2-1.0); BLOOD UREA NITROGEN 14 MG/DL (7-18); C REACTIVE PROTEIN QUANTITATIV < 0.30 MG/DL (0.00-0.30); CALCIUM LEVEL 9.4 MG/DL (8.8-10.2); CARBON DIOXIDE LEVEL 26 MEQ/L (21-32); CHLORIDE LEVEL 106 MEQ/L (98-107); CREATININE FOR GFR 0.98 MG/DL (0.55-1.30); GLOMERULAR FILTRATION RATE 58.7 (>39); GLUCOSE, FASTING 122 MG/DL (70-100); MAGNESIUM LEVEL 2.1 MG/DL (1.8-2.4); POTASSIUM SERUM 4.6 MEQ/L (3.5-5.1); SODIUM LEVEL 140 MEQ/L (136-145); TOTAL PROTEIN 6.6 GM/DL (6.4-8.2)
[2021-11-07 16:29] LABS: NT-PRO BNP 2657 PG/ML (<450)
== END ==
LOC: M PLALAB 08:49
PROVIDERS: ATTEND Family Medicine
DX: D50.9 Iron deficiency anemia, unspecified (principal); M06.9 Rheumatoid arthritis, unspecified; E53.8 Deficiency of other specified B group vitamins; I50.32 Chronic diastolic (congestive) heart failure; E55.9 Vitamin D deficiency, unspecified; Z79.899 Other long term (current) drug therapy

== ENCOUNTER → 2022-03-19 | Outpatient (CLI) | payer MEDICARE | LOC: M WHC 09:04 | PROVIDERS: ATTEND Family Medicine | DX: Z12.31 Encounter for screening mammogram for malignant neoplasm of breast (principal) ==

== ENCOUNTER → 2022-04-09 | Outpatient (CLI) | payer MEDICARE ==
[2022-04-09 11:12] LABS: BASO # 0.1 10^3/uL (0.0-0.2); BASO % 0.6 % (0.0-1.0); EOS # 0.1 10^3/uL (0.0-0.5); EOS % 1.1 % (0.0-3.0); HEMATOCRIT 40.2 % (36.0-47.0); LYMPH # 1.4 10^3/uL (1.5-5.0); LYMPH % 16.2 % (24.0-44.0); MEAN CORPUSCULAR HEMOGLOBIN 30.1 pg (27.0-33.0); MEAN CORPUSCULAR HGB CONC 32.3 g/dl (32.0-36.5); MEAN CORPUSCULAR VOLUME 93.1 fl (80.0-96.0); MONO # 0.7 10^3/uL (0.0-0.8); MONO % 8.4 % (2.0-8.0); NEUTROPHILS # 6.1 10^3/uL (1.5-8.5); NEUTROPHILS % 73.2 % (36.0-66.0); PLATELET COUNT, AUTOMATED 404 10^3/uL (150-450); RED BLOOD COUNT 4.32 10^6/uL (4.00-5.40); WHITE BLOOD COUNT 8.3 10^3/uL (4.0-10.0)
[2022-04-09 11:44] LABS: FREE T4 1.36 NG/DL (0.89-1.76)
[2022-04-09 11:45] LABS: C REACTIVE PROTEIN QUANTITATIV < 0.40 MG/DL (<1.0); FERRITIN 274.6 NG/ML (7.3-270.7); THYROID STIMULATING HORMONE 2.175 uIU/ML (0.55-4.78)
[2022-04-09 11:47] LABS: ALBUMIN 3.5 G/DL (3.2-5.2); ALKALINE PHOSPHATASE 86 U/L (46-116); ALT/SGPT 23 U/L (7.0-40); AST/SGOT 17 U/L (<34); BILIRUBIN,TOTAL 0.8 MG/DL (0.3-1.2); BLOOD UREA NITROGEN 13 MG/DL (9-23); CALCIUM LEVEL 8.4 MG/DL (8.3-10.6); CARBON DIOXIDE LEVEL 29 MMOL/L (20-31); CHLORIDE LEVEL 101 MMOL/L (98-107); CHOLESTEROL LEVEL 148 MG/DL (<200); CREATININE FOR GFR 0.87 MG/DL (0.55-1.30); GLOMERULAR FILTRATION RATE > 60.0 (>39); GLUCOSE, FASTING 154 MG/DL (74-106); HDL CHOLESTEROL 64.2 MG/DL (>40); LDL CHOLESTEROL 56.6 MG/DL (<100); NON-HDL-C 84 MG/DL; POTASSIUM SERUM 3.9 MMOL/L (3.5-5.1); SODIUM LEVEL 140 MMOL/L (136-145); TOTAL PROTEIN 6.5 G/DL (5.7-8.2); TRIGLYCERIDES LEVEL 136 MG/DL (<150); VITAMIN B12 LEVEL 545 PG/ML (211-911)
== END ==
LOC: M PLALAB 08:32
PROVIDERS: ATTEND Family Medicine
DX: E11.9 Type 2 diabetes mellitus without complications (principal); D50.9 Iron deficiency anemia, unspecified; I50.32 Chronic diastolic (congestive) heart failure

== ENCOUNTER 2022-06-23 14:42 | Outpatient (CLI) | payer MEDICARE, OTHER ==
[~2022-06-23] VITALS: Ht 149.9 cm; Wt 53.0 kg
[2022-06-23] MEDS ORDERED: ZOLEDRONIC ACID 5 MG in IV 1 EA IV ONE (15:00)
[2022-06-23 15:43] VITALS: BP 141/72
[2022-06-23 16:15] VITALS: BP 122/61
== END 2022-06-23 16:15 | disposition home or self-care (01) ==
LOC: M INFU 14:42
PROVIDERS: ATTEND Family Medicine
DX: M85.89 Other specified disorders of bone density and structure, multiple sites (principal)
CPT/HCPCS: 96365; J3489

== ENCOUNTER 2022-09-04 10:50 | Day surgery (SDC) | payer OTHER ==
[~2022-09-04] VITALS: Ht 147.3 cm; Wt 52.2 kg
[~2022-09-04 10:50] MED LIST changes: +BETAMETHASONE SOLUSPAN 6MG/ML 5ML VIAL As Ordered ONE; +D3 H10002 PO; +ICAPTAB5 PO; +JANU100T PO; +LIDOCAINE 1% SDV 5ML VIAL As Ordered ONE; +LIDOCAINE 3.5 % 1ML OPHTH TOPICAL GEL OU ONE; +POTA-298 PO; +POVIDONE-IODINE 5% OPHTH PREP SOL 30ML As Ordered ONE; +SIMB1SUS OD; -SIMB1SUS OU; +TIMO0.5S20 OD; -TIMO0.5S29 OU; +TOBRADEX OPHTH OINT 3.5 GM As Ordered ONE; +TOBRAMYCIN 80MG/2ML VIAL As Ordered ONE; +TRAV04OPD OD; -TRAV04OPD OU; +mitoMYcin 0.2 MG/VIAL KIT FOR OPHTHALMIC USE As Ordered ONE
[2022-09-04] MEDS ORDERED: fentaNYL 100 MCG/2 ML INJECTION As Ordered ONE (10:56)
[2022-09-04] MEDS ORDERED: MIDAZOLAM INJ 2MG/2ML VIAL As Ordered ONE (10:57)
[2022-09-04 13:00] VITALS: BP 156/67
== END 2022-09-04 13:21 | disposition home or self-care (01) ==
LOC: M SDC 10:50
PROVIDERS: ATTEND Ophthalmology
DX: H40.1111 Primary open-angle glaucoma, right eye, mild stage (principal); I25.10 Atherosclerotic heart disease of native coronary artery without angina pectoris; Z95.5 Presence of coronary angioplasty implant and graft; I25.2 Old myocardial infarction; E11.9 Type 2 diabetes mellitus without complications; G47.30 Sleep apnea, unspecified; Z79.899 Other long term (current) drug therapy; Z79.82 Long term (current) use of aspirin; Z87.891 Personal history of nicotine dependence; I11.0 Hypertensive heart disease with heart failure; I50.9 Heart failure, unspecified
CPT/HCPCS: 66183; C1729; J2250; J3010; J7315

== ENCOUNTER → 2023-02-11 | Outpatient (CLI) | payer OTHER ==
[~2023-02-11] MED LIST changes: -BETAMETHASONE SOLUSPAN 6MG/ML 5ML VIAL As Ordered ONE; -LIDOCAINE 1% SDV 5ML VIAL As Ordered ONE; -LIDOCAINE 3.5 % 1ML OPHTH TOPICAL GEL OU ONE; -POVIDONE-IODINE 5% OPHTH PREP SOL 30ML As Ordered ONE; -TOBRADEX OPHTH OINT 3.5 GM As Ordered ONE; -TOBRAMYCIN 80MG/2ML VIAL As Ordered ONE; -mitoMYcin 0.2 MG/VIAL KIT FOR OPHTHALMIC USE As Ordered ONE
[2023-02-11 10:19] LABS: BASO # 0.1 10^3/uL (0.0-0.2); BASO % 1.1 % (0.0-1.0); EOS # 0.1 10^3/uL (0.0-0.5); HEMATOCRIT 37.5 % (36.0-47.0); HEMOGLOBIN 12.2 g/dl (12.0-15.5); LYMPH # 1.4 10^3/uL (1.5-5.0); LYMPH % 17.4 % (24.0-44.0); MEAN CORPUSCULAR HEMOGLOBIN 29.9 pg (27.0-33.0); MEAN CORPUSCULAR HGB CONC 32.5 g/dl (32.0-36.5); MEAN CORPUSCULAR VOLUME 91.9 fl (80.0-96.0); MONO # 0.6 10^3/uL (0.0-0.8); MONO % 7.9 % (2.0-8.0); NEUTROPHILS # 5.7 10^3/uL (1.5-8.5); NEUTROPHILS % 72.3 % (36.0-66.0); PLATELET COUNT, AUTOMATED 338 10^3/uL (150-450); RED BLOOD COUNT 4.08 10^6/uL (4.00-5.40); WHITE BLOOD COUNT 7.9 10^3/uL (4.0-10.0)
[2023-02-11 10:44] LABS: HEMOGLOBIN A1c 6.6 % (4.0-6.0)
[2023-02-11 10:49] LABS: ALBUMIN 3.5 G/DL (3.2-5.2); BILIRUBIN,TOTAL 0.8 MG/DL (0.3-1.2); CHOLESTEROL RISK RATIO 2.17 (<5); CREATININE FOR GFR 1.23 MG/DL (0.55-1.30); GLOMERULAR FILTRATION RATE 45.1 (>39); HDL CHOLESTEROL 78.6 MG/DL (>40); NON-HDL-C 92.4 MG/DL; POTASSIUM SERUM 4.6 MMOL/L (3.5-5.1); TOTAL PROTEIN 6.4 G/DL (5.7-8.2)
[2023-02-11 10:50] LABS: PTH INTACT 98.1 PG/ML (18.5-88.0)
[2023-02-11 10:51] LABS: FERRITIN 251.3 NG/ML (7.3-270.7)
== END ==
LOC: M PLALAB 08:45
PROVIDERS: ATTEND Family Medicine
DX: I50.32 Chronic diastolic (congestive) heart failure (principal); D50.9 Iron deficiency anemia, unspecified; E11.9 Type 2 diabetes mellitus without complications; E78.5 Hyperlipidemia, unspecified

== ENCOUNTER → 2023-03-25 | Outpatient (CLI) | payer OTHER | LOC: M WHC 07:40 | PROVIDERS: ATTEND Family Medicine | DX: Z12.31 Encounter for screening mammogram for malignant neoplasm of breast (principal); Z13.820 Encounter for screening for osteoporosis ==

== ENCOUNTER → 2023-06-24 | Outpatient (CLI) | payer OTHER ==
[2023-06-24 10:42] LABS: BASO # 0.1 10^3/uL (0.0-0.2); BASO % 0.8 % (0.0-1.0); EOS # 0.1 10^3/uL (0.0-0.5); EOS % 0.7 % (0.0-3.0); HEMATOCRIT 38.9 % (36.0-47.0); HEMOGLOBIN 12.9 g/dl (12.0-15.5); LYMPH # 1.2 10^3/uL (1.5-5.0); LYMPH % 16.7 % (24.0-44.0); MEAN CORPUSCULAR HEMOGLOBIN 30.4 pg (27.0-33.0); MEAN CORPUSCULAR HGB CONC 33.2 g/dl (32.0-36.5); MEAN CORPUSCULAR VOLUME 91.5 fl (80.0-96.0); MONO # 0.6 10^3/uL (0.0-0.8); MONO % 7.4 % (2.0-8.0); NEUTROPHILS # 5.5 10^3/uL (1.5-8.5); NEUTROPHILS % 73.9 % (36.0-66.0); PLATELET COUNT, AUTOMATED 342 10^3/uL (150-450); RED BLOOD COUNT 4.25 10^6/uL (4.00-5.40); WHITE BLOOD COUNT 7.4 10^3/uL (4.0-10.0)
[2023-06-24 11:01] LABS: HEMOGLOBIN A1c 7.4 % (4.0-6.0)
[2023-06-24 11:12] LABS: ALBUMIN 3.5 G/DL (3.2-5.2); BILIRUBIN,TOTAL 0.7 MG/DL (0.3-1.2); CALCIUM LEVEL 8.3 MG/DL (8.3-10.6); CREATININE FOR GFR 1.09 MG/DL (0.55-1.30); GLOMERULAR FILTRATION RATE 51.7 (>39); POTASSIUM SERUM 4.8 MMOL/L (3.5-5.1); TOTAL PROTEIN 6.2 G/DL (5.7-8.2)
[2023-06-24 11:16] LABS: FERRITIN 176.2 NG/ML (7.3-270.7)
== END ==
LOC: M PLALAB 08:10
PROVIDERS: ATTEND Family Medicine
DX: I50.32 Chronic diastolic (congestive) heart failure (principal); E11.9 Type 2 diabetes mellitus without complications; E53.8 Deficiency of other specified B group vitamins

== ENCOUNTER 2023-06-29 13:29 | Outpatient (CLI) | payer OTHER ==
[~2023-06-29] VITALS: Ht 149.9 cm; Wt 52.0 kg
[2023-06-29] MEDS: ZOLEDRONIC ACID 5 MG in IV 1 EA IV ONE (14:20)
[2023-06-29 14:23] VITALS: BP 136/65; O2SAT 99
[2023-06-29 14:55] VITALS: BP 158/64; O2SAT 99
== END 2023-06-29 14:55 ==
LOC: M INFU 13:29
PROVIDERS: ATTEND Family Medicine
DX: M81.0 Age-related osteoporosis without current pathological fracture (principal)
CPT/HCPCS: 96365; J3489

== ENCOUNTER → 2023-07-09 | Outpatient (REF) | payer OTHER | LOC: M SFHCPLAZ 12:53 | PROVIDERS: ATTEND Family Medicine | DX: I50.32 Chronic diastolic (congestive) heart failure (principal); E11.9 Type 2 diabetes mellitus without complications; E55.9 Vitamin D deficiency, unspecified; E78.5 Hyperlipidemia, unspecified ==

== ENCOUNTER 2023-07-31 04:46 | Emergency (ER) | payer OTHER ==
[~2023-07-31] VITALS: Ht 121.9 cm; Wt 50.2 kg
[2023-07-31 06:36] LABS: BASO # 0.1 10^3/uL (0.0-0.2); BASO % 0.6 % (0.0-1.0); EOS % 0.4 % (0.0-3.0); HEMATOCRIT 36.6 % (36.0-47.0); HEMOGLOBIN 12.3 g/dl (12.0-15.5); MEAN CORPUSCULAR HEMOGLOBIN 30.2 pg (27.0-33.0); MEAN CORPUSCULAR HGB CONC 33.6 g/dl (32.0-36.5); MEAN CORPUSCULAR VOLUME 89.9 fl (80.0-96.0); MONO # 0.5 10^3/uL (0.0-0.8); MONO % 4.9 % (2.0-8.0); NEUTROPHILS # 9.2 10^3/uL (1.5-8.5); NEUTROPHILS % 84.7 % (36.0-66.0); PLATELET COUNT, AUTOMATED 366 10^3/uL (150-450); RED BLOOD COUNT 4.07 10^6/uL (4.00-5.40); WHITE BLOOD COUNT 10.9 10^3/uL (4.0-10.0)
[2023-07-31 06:51] LABS: INR 1.22; PARTIAL THROMBOPLASTIN TIME 28.1 SECONDS (24.8-34.2)
[2023-07-31 06:56] LABS: CALCIUM LEVEL 8.9 MG/DL (8.3-10.6); CREATININE FOR GFR 1.36 MG/DL (0.55-1.30); POTASSIUM SERUM 4.1 MMOL/L (3.5-5.1)
[2023-07-31] MEDS: LIDOCAINE W/EPINEPHRINE 1% 20ML VIAL SC ONE ×2 (07:00→08:25)
[2023-07-31] MEDS ORDERED: CEPH500C PO (08:57)
[2023-07-31 09:01] VITALS: O2SAT 96
[2023-07-31 09:02] VITALS: BP 140/70; TEMP 97.9
== END 2023-07-31 09:15 | disposition home or self-care (01) ==
LOC: M ED 04:46
DX: S01.01XA Laceration without foreign body of scalp, initial encounter (principal); Z79.01 Long term (current) use of anticoagulants; W10.9XXA Fall (on) (from) unspecified stairs and steps, initial encounter; Y92.019 Unspecified place in single-family (private) house as the place of occurrence of the external cause; Y93.89 Activity, other specified; Y99.9 Unspecified external cause status; I48.91 Unspecified atrial fibrillation; E11.9 Type 2 diabetes mellitus without complications; I10 Essential (primary) hypertension

== ENCOUNTER → 2023-12-30 | Outpatient (CLI) | payer MEDICARE ==
[~2023-12-30] MED LIST changes: +CEPH500C PO
[2023-12-30 10:31] LABS: BASO # 0.1 10^3/uL (0.0-0.2); BASO % 0.7 % (0.0-1.0); EOS # 0.1 10^3/uL (0.0-0.5); EOS % 0.7 % (0.0-3.0); HEMATOCRIT 34.8 % (36.0-47.0); HEMOGLOBIN 11.1 g/dl (12.0-15.5); LYMPH # 1.1 10^3/uL (1.5-5.0); LYMPH % 12.8 % (24.0-44.0); MEAN CORPUSCULAR HEMOGLOBIN 28.7 pg (27.0-33.0); MEAN CORPUSCULAR HGB CONC 31.9 g/dl (32.0-36.5); MEAN CORPUSCULAR VOLUME 89.9 fl (80.0-96.0); MONO # 0.8 10^3/uL (0.0-0.8); MONO % 9.2 % (2.0-8.0); NEUTROPHILS # 6.4 10^3/uL (1.5-8.5); NEUTROPHILS % 76.1 % (36.0-66.0); PLATELET COUNT, AUTOMATED 388 10^3/uL (150-450); RED BLOOD COUNT 3.87 10^6/uL (4.00-5.40); WHITE BLOOD COUNT 8.4 10^3/uL (4.0-10.0)
[2023-12-30 10:37] LABS: ALBUMIN 3.3 G/DL (3.2-5.2); BILIRUBIN,TOTAL 0.7 MG/DL (0.3-1.2); CALCIUM LEVEL 8.4 MG/DL (8.3-10.6); CHOLESTEROL RISK RATIO 2.31 (<5); CREATININE FOR GFR 1.08 MG/DL (0.55-1.30); GLOMERULAR FILTRATION RATE 52.2 (>39); HDL CHOLESTEROL 60.6 MG/DL (>40); NON-HDL-C 79.4 MG/DL; POTASSIUM SERUM 3.6 MMOL/L (3.5-5.1); PTH INTACT 126.1 PG/ML (18.5-88.0)
[2023-12-30 10:38] LABS: FREE T4 1.47 NG/DL (0.89-1.76)
[2023-12-30 10:39] LABS: FERRITIN 52.2 NG/ML (7.3-270.7); THYROID STIMULATING HORMONE 1.602 uIU/ML (0.55-4.78); TOTAL 25(OH) VITAMIN D 56.7 NG/ML (20.0-100.0)
[2023-12-30 11:17] LABS: HEMOGLOBIN A1c 6.1 % (4.0-6.0)
== END ==
LOC: M PLALAB 08:08
PROVIDERS: ATTEND Family Medicine
DX: I50.32 Chronic diastolic (congestive) heart failure (principal); E78.5 Hyperlipidemia, unspecified; E11.9 Type 2 diabetes mellitus without complications; E55.9 Vitamin D deficiency, unspecified

== ENCOUNTER → 2024-01-04 | Outpatient (CLI) | payer MEDICARE | LOC: M WHC 12:20 | PROVIDERS: ATTEND Family Medicine | DX: Z12.31 Encounter for screening mammogram for malignant neoplasm of breast (principal); Z53.9 Procedure and treatment not carried out, unspecified reason ==

== ENCOUNTER → 2024-02-03 | Outpatient (CLI) | payer MEDICARE | LOC: M CARPUL 11:06 | PROVIDERS: ATTEND Family Medicine | DX: I34.0 Nonrheumatic mitral (valve) insufficiency (principal); I27.20 Pulmonary hypertension, unspecified ==

== ENCOUNTER → 2024-03-30 | Outpatient (CLI) | payer MEDICARE | LOC: M WHC 08:59 | PROVIDERS: ATTEND Family Medicine | DX: Z12.31 Encounter for screening mammogram for malignant neoplasm of breast (principal); R92.333 Mammographic heterogeneous density, bilateral breasts ==

== ENCOUNTER → 2024-04-20 | Outpatient (CLI) | payer MEDICARE ==
[2024-04-20 11:19] LABS: ALBUMIN 3.4 G/DL (3.2-5.2); BILIRUBIN,TOTAL 0.7 MG/DL (0.3-1.2); CALCIUM LEVEL 9.1 MG/DL (8.3-10.6); CREATININE FOR GFR 1.24 MG/DL (0.55-1.30); GLOMERULAR FILTRATION RATE 44.4 (>39); POTASSIUM SERUM 3.7 MMOL/L (3.5-5.1); PTH INTACT 100.8 PG/ML (18.5-88.0); TOTAL PROTEIN 6.8 G/DL (5.7-8.2)
[2024-04-20 11:20] LABS: FREE T4 1.43 NG/DL (0.89-1.76); THYROID STIMULATING HORMONE 1.607 uIU/ML (0.55-4.78)
[2024-04-20 11:21] LABS: FERRITIN 33.8 NG/ML (7.3-270.7); TOTAL 25(OH) VITAMIN D 79.3 NG/ML (20.0-100.0)
[2024-04-20 11:28] LABS: HEMOGLOBIN A1c 6.5 % (4.0-6.0)
[2024-04-20 11:32] LABS: BASO # 0.1 10^3/uL (0.0-0.2); EOS # 0.1 10^3/uL (0.0-0.5); EOS % 0.9 % (0.0-3.0); HEMATOCRIT 35.6 % (36.0-47.0); HEMOGLOBIN 11.4 g/dl (12.0-15.5); LYMPH % 11.1 % (24.0-44.0); MEAN CORPUSCULAR HEMOGLOBIN 28.9 pg (27.0-33.0); MEAN CORPUSCULAR VOLUME 90.4 fl (80.0-96.0); MONO # 0.7 10^3/uL (0.0-0.8); MONO % 7.4 % (2.0-8.0); NEUTROPHILS % 79.1 % (36.0-66.0); PLATELET COUNT, AUTOMATED 368 10^3/uL (150-450); RED BLOOD COUNT 3.94 10^6/uL (4.00-5.40); WHITE BLOOD COUNT 8.8 10^3/uL (4.0-10.0)
== END ==
LOC: M PLALAB 08:21
PROVIDERS: ATTEND Family Medicine
DX: I50.32 Chronic diastolic (congestive) heart failure (principal); E55.9 Vitamin D deficiency, unspecified; E78.5 Hyperlipidemia, unspecified; E11.9 Type 2 diabetes mellitus without complications

== ENCOUNTER 2024-05-18 15:19 | Outpatient (CLI) | payer MEDICARE ==
[~2024-05-18] VITALS: Ht 149.9 cm; Wt 49.1 kg
[~2024-05-18 15:19] MED LIST changes: +ALBUTEROL SULFATE 2.5MG/0.5ML INH NEB SOLN INH PRN; +EPINEPHrine INJ 1 MG/ML 1ML AMP IM PRN; +diphenhydrAMINE 50MG/ML VIAL IV PRN; +methylPREDNISolone 125MG 2ML VIAL IV PRN
[2024-05-18 15:30] VITALS: BP 134/62; O2SAT 97
[2024-05-18] MEDS: FERRIC CARBOXYMALTOSE 750 MG (VIAL MATE) IN 100ML NS IV ONE (15:55)
[2024-05-18 16:30] VITALS: BP 113/56; O2SAT 97
== END 2024-05-18 16:30 ==
LOC: M INFU 15:19
PROVIDERS: ATTEND Family Medicine
DX: D50.9 Iron deficiency anemia, unspecified (principal)
CPT/HCPCS: 96365; J1439

== ENCOUNTER → 2024-06-20 | Outpatient (CLI) | payer MEDICARE ==
[~2024-06-20] MED LIST changes: -ALBUTEROL SULFATE 2.5MG/0.5ML INH NEB SOLN INH PRN; +E-Z-GAS II EFFERVESCENT PACKET (SODIUM BICARB./CITRIC ACID/SIMETHICONE) As Ordered ONE; +E-Z-HD 98% w/w 340GM SUSP BTL As Ordered ONE; +E-Z-PAQUE 96% w/w SUSP 176GM BTL As Ordered ONE; -EPINEPHrine INJ 1 MG/ML 1ML AMP IM PRN; -diphenhydrAMINE 50MG/ML VIAL IV PRN; -methylPREDNISolone 125MG 2ML VIAL IV PRN
== END ==
LOC: M RAD 08:28
PROVIDERS: ATTEND Family Medicine
DX: R13.10 Dysphagia, unspecified (principal)

== ENCOUNTER → 2024-06-29 | Outpatient (CLI) | payer MEDICARE ==
[~2024-06-29] MED LIST changes: -E-Z-GAS II EFFERVESCENT PACKET (SODIUM BICARB./CITRIC ACID/SIMETHICONE) As Ordered ONE; -E-Z-HD 98% w/w 340GM SUSP BTL As Ordered ONE; -E-Z-PAQUE 96% w/w SUSP 176GM BTL As Ordered ONE
[2024-06-29 10:34] LABS: BASO # 0.1 10^3/uL (0.0-0.2); BASO % 0.9 % (0.0-1.0); EOS # 0.1 10^3/uL (0.0-0.5); EOS % 0.8 % (0.0-3.0); HEMATOCRIT 38.5 % (36.0-47.0); HEMOGLOBIN 12.4 g/dl (12.0-15.5); LYMPH # 1.2 10^3/uL (1.5-5.0); LYMPH % 14.3 % (24.0-44.0); MEAN CORPUSCULAR HEMOGLOBIN 30.3 pg (27.0-33.0); MEAN CORPUSCULAR HGB CONC 32.2 g/dl (32.0-36.5); MEAN CORPUSCULAR VOLUME 94.1 fl (80.0-96.0); MONO # 0.6 10^3/uL (0.0-0.8); MONO % 7.2 % (2.0-8.0); NEUTROPHILS # 6.5 10^3/uL (1.5-8.5); NEUTROPHILS % 76.2 % (36.0-66.0); PLATELET COUNT, AUTOMATED 343 10^3/uL (150-450); RED BLOOD COUNT 4.09 10^6/uL (4.00-5.40); WHITE BLOOD COUNT 8.5 10^3/uL (4.0-10.0)
[2024-06-29 10:53] LABS: HEMOGLOBIN A1c 6.6 % (4.0-6.0)
[2024-06-29 10:59] LABS: ALBUMIN 3.4 G/DL (3.2-5.2); BILIRUBIN,TOTAL 0.6 MG/DL (0.3-1.2); CALCIUM LEVEL 8.8 MG/DL (8.3-10.6); CHOLESTEROL RISK RATIO 2.02 (<5); CREATININE FOR GFR 1.31 MG/DL (0.55-1.30); GLOMERULAR FILTRATION RATE 41.7 (>39); HDL CHOLESTEROL 80.3 MG/DL (>40); LDL CHOLESTEROL 66.3 MG/DL (<100); NON-HDL-C 82.7 MG/DL; POTASSIUM SERUM 4.7 MMOL/L (3.5-5.1); TOTAL PROTEIN 6.6 G/DL (5.7-8.2)
[2024-06-29 11:00] LABS: FERRITIN 230.1 NG/ML (7.3-270.7); PTH INTACT 99.5 PG/ML (18.5-88.0)
[2024-06-29 11:01] LABS: THYROID STIMULATING HORMONE 1.983 uIU/ML (0.55-4.78); TOTAL 25(OH) VITAMIN D 67.3 NG/ML (20.0-100.0)
[2024-06-29 11:02] LABS: FREE T4 1.28 NG/DL (0.89-1.76)
== END ==
LOC: M PLALAB 08:38
PROVIDERS: ATTEND Family Medicine
DX: I50.32 Chronic diastolic (congestive) heart failure (principal); E78.5 Hyperlipidemia, unspecified; E11.9 Type 2 diabetes mellitus without complications; E53.8 Deficiency of other specified B group vitamins; E55.9 Vitamin D deficiency, unspecified

== ENCOUNTER 2024-06-30 16:03 | Outpatient (CLI) | payer MEDICARE ==
[~2024-06-30] VITALS: Ht 142.2 cm; Wt 49.1 kg
[2024-06-30 16:20] VITALS: BP 121/59; O2SAT 99
[2024-06-30] MEDS: ZOLEDRONIC ACID 5 MG in IV 1 EA IV ONE (16:33)
[2024-06-30 17:10] VITALS: BP 122/63; O2SAT 99
== END 2024-06-30 17:10 ==
LOC: M INFU 16:03
PROVIDERS: ATTEND Family Medicine
DX: M81.0 Age-related osteoporosis without current pathological fracture (principal)
CPT/HCPCS: 96365; J3489

== ENCOUNTER → 2024-08-17 | Outpatient (CLI) | payer MEDICARE ==
[~2024-08-17] MED LIST changes: +BRIM0.2S13; +DORZ2SOL4; +FERR325T3 PO; +FLUTISP; +PANT40TA29 PO; +PILO1OPD; +POTA1TAB23 PO; +PRES1CAP PO; -SUCR1ORA2 PO; +SUCR1ORA20 PO; +TRAM50TA2 PO
[2024-08-17 10:28] LABS: BASO # 0.1 10^3/uL (0.0-0.2); BASO % 0.6 % (0.0-1.0); EOS # 0.1 10^3/uL (0.0-0.5); HEMATOCRIT 33.3 % (36.0-47.0); HEMOGLOBIN 10.6 g/dl (12.0-15.5); LYMPH # 1.2 10^3/uL (1.5-5.0); LYMPH % 12.7 % (24.0-44.0); MEAN CORPUSCULAR HEMOGLOBIN 30.5 pg (27.0-33.0); MEAN CORPUSCULAR HGB CONC 31.8 g/dl (32.0-36.5); MONO # 0.8 10^3/uL (0.0-0.8); MONO % 8.4 % (2.0-8.0); NEUTROPHILS # 7.2 10^3/uL (1.5-8.5); NEUTROPHILS % 76.8 % (36.0-66.0); PLATELET COUNT, AUTOMATED 369 10^3/uL (150-450); RED BLOOD COUNT 3.47 10^6/uL (4.00-5.40); WHITE BLOOD COUNT 9.4 10^3/uL (4.0-10.0)
[2024-08-17 11:07] LABS: ALBUMIN 3.1 G/DL (3.2-5.2); BILIRUBIN,TOTAL 0.4 MG/DL (0.3-1.2); CALCIUM LEVEL 8.6 MG/DL (8.3-10.6); CREATININE FOR GFR 1.86 MG/DL (0.55-1.30); GLOMERULAR FILTRATION RATE 27.2 (>39); POTASSIUM SERUM 5.1 MMOL/L (3.5-5.1); TOTAL PROTEIN 5.9 G/DL (5.7-8.2)
[2024-08-17 11:34] LABS: FERRITIN 162.1 NG/ML (7.3-270.7)
== END ==
LOC: M PLALAB 08:26
PROVIDERS: ATTEND Family Medicine
DX: E11.9 Type 2 diabetes mellitus without complications (principal); I11.0 Hypertensive heart disease with heart failure

== ENCOUNTER 2024-08-24 08:02 | Day surgery (SDC) | payer MEDICARE ==
[~2024-08-24] VITALS: Ht 147.3 cm; Wt 47.6 kg
[~2024-08-24 08:02] MED LIST changes: +LIDOCAINE 2% 100MG/5ML SDV (FOR ANES.) As Ordered ONE; +propofoL 200 MG/20 ML VIAL As Ordered ONE
[2024-08-24 08:55] VITALS: TEMP 97.2
[2024-08-24 09:18] VITALS: BP 105/55; O2SAT 96
== END 2024-08-24 09:19 | disposition home or self-care (01) ==
LOC: M OPP 08:02
PROVIDERS: ATTEND Internal Medicine Gastroenterology
DX: K21.00 Gastro-esophageal reflux disease with esophagitis, without bleeding (principal); R13.12 Dysphagia, oropharyngeal phase; K44.9 Diaphragmatic hernia without obstruction or gangrene; Z98.0 Intestinal bypass and anastomosis status; Z90.49 Acquired absence of other specified parts of digestive tract; I48.91 Unspecified atrial fibrillation; I25.10 Atherosclerotic heart disease of native coronary artery without angina pectoris; I25.2 Old myocardial infarction; Z95.5 Presence of coronary angioplasty implant and graft; I11.0 Hypertensive heart disease with heart failure; I50.9 Heart failure, unspecified; E11.9 Type 2 diabetes mellitus without complications; E78.00 Pure hypercholesterolemia, unspecified; Z79.01 Long term (current) use of anticoagulants; Z79.899 Other long term (current) drug therapy; Z79.84 Long term (current) use of oral hypoglycemic drugs; Z79.82 Long term (current) use of aspirin; M06.9 Rheumatoid arthritis, unspecified; G47.30 Sleep apnea, unspecified; Z90.89 Acquired absence of other organs; Z90.710 Acquired absence of both cervix and uterus; H54.7 Unspecified visual loss; H40.9 Unspecified glaucoma; Z87.891 Personal history of nicotine dependence

== ENCOUNTER → 2025-01-11 | Outpatient (CLI) | payer MEDICARE ==
[~2025-01-11] MED LIST changes: -LIDOCAINE 2% 100MG/5ML SDV (FOR ANES.) As Ordered ONE; -propofoL 200 MG/20 ML VIAL As Ordered ONE
[2025-01-11 14:31] LABS: BASO # 0.1 10^3/uL (0.0-0.2); BASO % 0.9 % (0.0-1.0); EOS # 0.1 10^3/uL (0.0-0.5); EOS % 1.7 % (0.0-3.0); LYMPH # 0.9 10^3/uL (1.5-5.0); LYMPH % 11.2 % (24.0-44.0); MONO # 0.7 10^3/uL (0.0-0.8); MONO % 8.4 % (2.0-8.0); NEUTROPHILS # 6.0 10^3/uL (1.5-8.5); NEUTROPHILS % 77.5 % (36.0-66.0); PLATELET COUNT, AUTOMATED 355 10^3/uL (150-450)
[2025-01-11 14:52] LABS: ESTIMATED AVERAGE GLUCOSE 111.0 MG/DL (60-110)
[2025-01-11 15:01] LABS: ALT/SGPT 31.0 U/L (7.0-40); AST/SGOT 27.0 U/L (<34); CALCIUM LEVEL 8.3 MG/DL (8.3-10.6); CARBON DIOXIDE LEVEL 30.0 MMOL/L (20-31); CHLORIDE LEVEL 103.0 MMOL/L (98-107); CHOLESTEROL LEVEL 160.0 MG/DL (<200); CHOLESTEROL RISK RATIO 2.0 (<5); CREATININE FOR GFR 1.66 MG/DL (0.55-1.30); GLOMERULAR FILTRATION RATE 31.2 (>39); IRON (FE) 111.0 UG/DL (50-170); LDL CHOLESTEROL 66.7 MG/DL (<100); MAGNESIUM LEVEL 2.5 MG/DL (1.8-2.4); NON-HDL-C 80.1 MG/DL; PERCENT SATURATION 40.2 % (13.2-45.0); POTASSIUM SERUM 4.1 MMOL/L (3.5-5.1); PTH INTACT 169.7 PG/ML (18.5-88.0); SODIUM LEVEL 143.0 MMOL/L (136-145); TOTAL 25(OH) VITAMIN D 70.6 NG/ML (20.0-100.0); TRIGLYCERIDES LEVEL 67.0 MG/DL (<150)
[2025-01-11 15:02] LABS: FREE T4 1.38 NG/DL (0.89-1.76)
[2025-01-11 15:03] LABS: VITAMIN B12 LEVEL 618.0 PG/ML (211-911)
[2025-01-12 09:47] LABS: PROTEIN, TOTAL SO 6.4 g/dL (6.1-8.1)
[2025-01-13 12:13] LABS: FREE KAPPA LIGHT CHAINS SERUM 62.2 mg/L (3.3-19.4); FREE LAMBDA LIGHT CHAINS SERUM 53.3 mg/L (5.7-26.3); KAPPA/LAMBDA RATIO SERUM 1.17 (0.26-1.65)
== END ==
LOC: M PLALAB 08:30
PROVIDERS: ATTEND Family Medicine
DX: I50.32 Chronic diastolic (congestive) heart failure (principal); E11.9 Type 2 diabetes mellitus without complications; E55.9 Vitamin D deficiency, unspecified; E78.5 Hyperlipidemia, unspecified; E53.8 Deficiency of other specified B group vitamins; D50.9 Iron deficiency anemia, unspecified; D47.2 Monoclonal gammopathy

== ENCOUNTER → 2025-04-05 | Outpatient (CLI) | payer MEDICARE | LOC: M WHC 08:20 | PROVIDERS: ATTEND Family Medicine | DX: Z12.31 Encounter for screening mammogram for malignant neoplasm of breast (principal); M81.0 Age-related osteoporosis without current pathological fracture; R92.313 Mammographic fatty tissue density, bilateral breasts ==